=== PATIENT | male | born 1950 | race Caucasian/White ===

== ENCOUNTER 2016-07-09 22:38 | Inpatient (IN) | payer MEDICARE ==
[~2016-07-09] VITALS: Ht 162.6 cm; Wt 91.8 kg
[~2016-07-09 22:38] MED LIST: ACURKIT XX; AMLO10TA2 NG; B-D1MIS3 XX; CARV6.25 PO; CATA0.2D TOP; HYDR25TA PO; HYDR50TA PO; INSUHUMDS SC; INSULADS SC; INSULANT SC; ISOS20TAB PO; PANT40TA2 PO; PRED10TA PO; [UNRECOGNIZED DRUG - SUPPLY] SC
[2016-07-09 23:08] LABS: ABG BASE EXCESS -3.5 (-2.0-2.0); ABG DEVICE NASAL CANN; ABG HCO3 25.4 MEQ/L (22.0-26.0); ABG PARTIAL PRESSURE O2 372.2 mmHg (75.0-100.0); ABG STANDARD HCO3 21.7 MEQ/L (22.0-26.0); ABG TOTAL CO2 27.3 MEQ/L (23.0-31.0)
[2016-07-09 23:10] LABS: ABG PARTIAL PRESSURE CO2 63.4 mmHg (35.0-45.0)
[2016-07-09 23:13] LABS: CALCIUM LEVEL 8.2 MG/DL (8.8-10.2); CREATININE FOR GFR 1.62 MG/DL (0.70-1.30); GLOMERULAR FILTRATION RATE 45.3 (>49)
[2016-07-09 23:14] LABS: BASO % 0.2 % (0.0-1.0); EOS # 0.3 K/mm3 (0.0-0.50); EOS % 1.4 % (0.0-3.0); LARGE UNSTAINED CELL # 0.3 K/mm3 (0.0-0.4); LARGE UNSTAINED CELL % 1.3 % (0.0-4.0); LYMPH # 0.9 K/mm3 (1.5-4.5); LYMPH % 4.3 % (24.0-44.0); MEAN CORPUSCULAR HEMOGLOBIN 29.2 pg (27.0-33.0); MEAN CORPUSCULAR HGB CONC 32.8 g/dl (32.0-36.5); MEAN CORPUSCULAR VOLUME 88.8 fl (80.0-96.0); MONO # 0.8 K/mm3 (0.0-0.8); MONO % 3.7 % (0.0-5.0); NEUTROPHILS # 18.1 K/mm3 (1.8-7.7); NEUTROPHILS % 89.1 % (36.0-66.0); PLATELET COUNT, AUTOMATED 122 k/mm3 (150-450); RED CELL DISTRIBUTION WIDTH 12.5 % (11.5-14.5); WHITE BLOOD COUNT 20.3 K/mm3 (4.0-10.0)
[2016-07-09] MEDS ORDERED: NITROGLYCERIN 2% OINT 1 GM *U/D* PKT As Ordered ONE (23:29)
[2016-07-10] VITALS (9 sets, daily range): BP systolic 119–151; BP diastolic 58–70; O2SAT 92–98
[2016-07-10] MEDS ORDERED: FUROSEMIDE 40 MG/4 ML VIAL (J1940) As Ordered ONE (00:24)
[2016-07-10] MEDS ORDERED: CEFUROXIME INJ 750 MG VIAL (J0697) As Ordered ONE (00:24)
[2016-07-10 00:49] LABS: ABG BASE EXCESS 0.1 (-2.0-2.0); ABG HCO3 24.7 MEQ/L (22.0-26.0); ABG PARTIAL PRESSURE CO2 39.9 mmHg (35.0-45.0); ABG PARTIAL PRESSURE O2 102.9 mmHg (75.0-100.0); ABG STANDARD HCO3 24.6 MEQ/L (22.0-26.0); ABG TOTAL CO2 25.9 MEQ/L (23.0-31.0)
[2016-07-10] MEDS ORDERED: HYDR-4266 PO (01:02)
[2016-07-10] MEDS ORDERED: CATA0.2D TD (01:02)
[2016-07-10] MEDS ORDERED: CARV6.25 PO (01:02)
[2016-07-10] MEDS ORDERED: INSULANT SC (01:02)
[2016-07-10] MEDS ORDERED: ISOS20TAB PO (01:02)
[2016-07-10] MEDS ORDERED: INSUHUMDS SC (01:02)
[2016-07-10] MEDS ORDERED: AMLO10TA2 PO (01:02)
[2016-07-10] MEDS ORDERED: PRED10TA PO (01:02)
[2016-07-10] MEDS ORDERED: PANT40TA2 PO (01:02)
[2016-07-10] MEDS ORDERED: GLUCOSE 4 GM CHEW TABLET PO PRN (01:30)
[2016-07-10] MEDS ORDERED: GLUCAGON FOR INJ 1 MG VIAL (J1610) SC PRN (01:30)
[2016-07-10] MEDS ORDERED: DEXTROSE 50% 50 ML SYRINGE IV PRN (01:30)
--- NOTE | 2016-07-10 01:52 | HPEPDOC ---
General Date of Admission 07/10/2016 Chief Complaint The patient is a 66-year-old male admitted with a reason for visit of Diff Breathing. History of Present Illness 66-year-old male past history of diabetes, hypertension, COPD who presents with increasing shortness of breath for 1 day duration. Patient was discharged on 6: 30 PM and returns to the ED AROUND 9:30 due to shortness of breath. When I asked the patient is a little better for about couple hours but then suddenly got worse and therefore he decided to come back to ED. patient is on placed on BiPAP and breathing comfortably and saturating well. Patient was admitted on 06/20/2016 with acute hypercapnic and hypoxic was a failure requiring intubation. Patient stayed in hospital for about 3 weeks, requiring nitroglycerin drip for hypertensive urgency. Patient also had completed a course with worsening kidney function and on discharge creatinine was 1.57. On admission his creatinine was 1.3 which trended up to 6 and was stable around 1.5 upon discharge. Patient also has elevated BnP as well as pitting edema. Lasix was held due to worsening kidney function. ABG revealed PCO2 of 63 which improved to 40 upon BiPAP. At this time patient is being admitted to ICU for BiPAP therapy. Home Medications Scheduled Amlodipine Besylate (Amlodipine Besylate) 10 Mg Tab 10 MG PO DAILY (Reported) Carvedilol (Carvedilol) 6.25 Mg Tab 6.25 MG PO BID (Reported) Clonidine Hydrochloride ([id number]-Ylj-9) 0.2 Mg/24 Hr Dis 0.2 MG TD 1XWK ( Reported) SUNDAYS Hydralazine HCl (Hydralazine HCl) 25 Mg Tab 25 MG PO TID (Reported) Insulin Glargine (Lantus) 1 Units/0.01 Ml Susp 20 UNITS SC QHS (Reported) Insulin Human Lispro (Humalog) 1 Units/0.01 Ml Inj 1 DOSE SC AC (Reported) Isosorbide Dinitrate (Isosorbide Dinitrate) 20 Mg Tab 20 MG PO TID (Reported) Pantoprazole Sodium (Pantoprazole Sodium) 40 Mg Tab 40 MG PO DAILY (Reported) Prednisone (Prednisone) 10 Mg Tab 10 MG PO QHS (Reported) Allergies Coded Allergies: No Known Allergies (Unverified , 06/20/16) Past Medical History Medical History COPD Chronic kidney disease Hypertension Diabetes GERD Family History Significant Family History: No pertinent family hx Social History * Smoker: former Smoker Alcohol: denies Drugs: denies Recent Travel/Sick Contacts: Denies: Recent sick contacts, Recent travel Psychosocial History: No pertinent psych hx Review of Symptoms General: Denies: Chills, Fatigue, Malaise, Night Sweats, Normal Appetite, Other Symptoms, ROS Unobtainable Constitutional: Denies: Chills, Fatigue, Fever, Lethargy, Malaise, Night Sweats , Other, Weakness, Weight Loss Eyes: Denies: Conjunctivae inflammation, Eyelid inflammation, Other, Pain, Redness, Vision change ENT: Denies: Dysphagia, Ear Pain, Epistaxis, Head Aches, Other Symptoms, Post Nasal Drip, Sinus Congestion, Sore Throat Skin: Denies: Breakdown, Bruising, Dry, Itching, Jaundice, Lesions, Nail Changes, Other, Rash Pulmonary: Reports: Cough, Dyspnea Cardiovascular: Denies: Chest Pain, Edema, Lt Headedness, Orthopnea, Other Symptoms, Palpitations, Paroxysmal Noc. Dyspnea Gastrointestinal: Denies: Abdominal Pain, Constipation, Diarrhea, Hematochezia , Melena, Nausea, Other Symptoms, Vomiting Genitourinary: Denies: Dysuria, Frequency, Hematuria, Incontinence, Other Symptoms, Retention Hematologic: Denies: Bleeding Excessively, Bruising, Enlarged Lymph Nodes, Other Hematologic, Petecchia, Purpura Endocrine: Denies: Cold Intolerance, Heat Intolerance, Other Endocrine Sx, Polydipsia, Polyphagia, Polyuria Musculoskeletal: Denies: Arm Pain, Back Pain, Foot Pain, Hand Pain, Joint Pain , Leg Pain, Muscle Pain, Neck Pain, Other Symptoms, Shoulder Pain, Spasms Neurological: Denies: Change in speech, Confusion, Incoordination, Numbness, Other Symptoms, Seizures, Weakness Psych: Denies: Anger, Anxiety, Depression, Memory Issues, Mood Normal, Other Psych, Thoughts of Harming Other, Thoughts of Self Harm Physical Examination Eye Exam: Negative: Conjunctiva & lids normal, EOMI, Other Eye Symptoms, PERRLA , Ptosis, Sclera icteric ENT Exam: Negative: Atraumatic, Ext Auditory Canal Nml, Mucous membr. moist/ pink, Nares Patent, Other ENT, Pharyngeal Edema, Pharynx Normal, Pinna Normal, Tongue Midline, Tympanic Membranes Normal Neck Exam: Negative: +2 carotid pulse wo bruit, JVD, Lymphadenopathy, Other, Supple, thyromegaly Chest Exam: Positive: Rales, Wheezing Heart Exam: Negative: Bradycardic, Gallops, Irregular Rhythm, Murmurs, Normal S1, Normal S2, Other, Rate Normal, Regular Rhythm, Rubs, Tachycardic Telemetry: Negative: AV Block, Asystole, Atrial fibrillation, Bradycardia, No significant arrhythmia, Other Telemetry:, PACs, PVCs, Pause, SV Tach, Sinus, Tachycardia Abdomen Exam: Negative: BS Hyperactive, BS Hypoactive, Hepatospenomegaly, Hernia, Mass, Normal bowel sounds, Other, Soft, Tenderness Vital Signs Blood pressure 220/104 Pulse 110 Respiration 32 Laboratory Data Labs 24H Laboratory Tests 2 07/09/16 22:46: Anion Gap 11, B-Type Natriuretic Peptide 1580H, White Blood Count 20.3H, Red Blood Count 4.37, Hemoglobin 12.7L, Hematocrit 38.8L, Mean Corpuscular Volume 88.8, Mean Corpuscular Hemoglobin 29.2, Mean Corpuscular Hemoglobin Concent 32.8 , Red Cell Distribution Width 12.5, Platelet Count 122L, Neutrophils (%) (Auto) 89.1H, Lymphocytes (%) (Auto) 4.3L, Monocytes (%) (Auto) 3.7, Eosinophils (%) ( Auto) 1.4, Basophils (%) (Auto) 0.2, Neutrophils # (Auto) 18.1H, Lymphocytes # ( Auto) 0.9L, Monocytes # (Auto) 0.8, Eosinophils # (Auto) 0.3, Basophils # (Auto ) 0.0, Blood Urea Nitrogen 30H, Creatinine 1.62H, Sodium Level 140, Potassium Level 4.0, Chloride Level 102, Carbon Dioxide Level 27, Calcium Level 8.2L, Total Creatine Kinase 112, Creatine Kinase MB 12.4H, Creatine Kinase MB Relative Index 11.07H, Glomerular Filtration Rate 45.3L, Large Unclassified Cells # 0.3, Large Unclassified Cells % 1.3, Troponin I 0.16H 07/09/16 23:04: Arterial Blood pH 7.220*L, Arterial Blood Partial Pressure CO2 63.4*H, Arterial Blood Partial Pressure O2 372.2H, Arterial Blood Total CO2 27.3, Arterial Blood HCO3 25.4, Arterial Blood Base Excess -3.5L, Arterial Blood Oxygen Saturation 99.9H, Blood Gas Bicarbonate Standard 21.7L, Oxygen Delivery Device NASAL LOVE 07/10/16 00:36: Arterial Blood pH 7.410, Arterial Blood Partial Pressure CO2 39.9, Arterial Blood Partial Pressure O2 102.9H, Arterial Blood Total CO2 25.9, Arterial Blood HCO3 24.7, Arterial Blood Base Excess 0.1, Arterial Blood Oxygen Saturation 98.2 , Blood Gas Bicarbonate Standard 24.6 CBC/BMP Laboratory Tests 07/09/16 22:46 Calcium Level 8.2 L, Total Creatine Kinase 112, Red Blood Count 4.37, Mean Corpuscular Volume 88.8, Mean Corpuscular Hemoglobin 29.2, Mean Corpuscular Hemoglobin Concent 32.8, Red Cell Distribution Width 12.5, Neutrophils (%) (Auto ) 89.1 H, Lymphocytes (%) (Auto) 4.3 L, Monocytes (%) (Auto) 3.7, Eosinophils (% ) (Auto) 1.4, Basophils (%) (Auto) 0.2, Neutrophils # (Auto) 18.1 H, Lymphocytes # (Auto) 0.9 L, Monocytes # (Auto) 0.8, Eosinophils # (Auto) 0.3, Basophils # (Auto) 0.0 Microbiology Microbiology 07/09/16 Blood Culture, Received Pending 07/09/16 Blood Culture, Received Pending Plan / VTE VTE Prophylaxis Ordered?: Yes Plan Plan 66-year-old male past history of diabetes, hypertension, COPD who presents with increasing shortness of breath for 1 day duration. COPD exacerbation Patient will be placed on BiPAP for now. DuoNeb every 4 Continue with prednisone 10 mg once a day Spiriva and advair acute on chronic diastolic Congestive heart failure/acute kidney injury on chronic kidney disease/fluid overload Echo from beginning of june showed normal EF with a grade 1 diastolic heart failure. Fluid overload could be secondary to acute kidney injury on CKd. We will obtain an echo tomorrow, Lasix 40 IV twice a day Daily ins and outs and daily weights. Hypertensive urgency Continue with Catapres. Will increase hydralazine 200 mg 3 times a day Also had a carotid Lasix IV. We'll monitor blood pressure DM levemir and Insulin sliding scale. Prophylaxis heparin subcutaneous MÓNICA VERDUZCO MD Jul 10, 2016 01:52
--- NOTE | 2016-07-10 02:24 | EDDOCDS ---
Physician Documentation [facility] Name: Maurilio Mcmullen Age: 66 yrs Sex: Male : 1950 Arrival Date: 07/09/2016 Time: 22:38 Bed 4 Private MD: Butch Elder A. Disposition: 07/10 00:39 Critical Care:. cs11 Disposition: 07/10/16 00:39 Hospitalization ordered by Mickey Urbina for Inpatient Admission. Preliminary diagnosis are Respiratory failure, unspecified with hypercapnia, Hypertensive heart disease with heart failure, Pneumonia in diseases classified elsewhere. - Bed requested for M ICU. - Status is Inpatient Admission. cz - Condition is Stable. - Problem is new. - Symptoms have improved. Historical: - Allergies: no known allergies; - Home Meds: 1. Unknown 2. amlodipine 10 mg Oral tab 1 tab once daily 3. carvedilol 6.25 mg oral tab 1 tab 2 times per day 4. clonidine HCl 0.2 mg oral tab 1 patch 5. hydralazine 75 mg Oral tab 3 times per day 6. isosorbide dinitrate 20 mg Oral tab 1 tab 3 times per day 7. pantoprazole 40 mg oral grps 1 packet once daily 8. prednisone 10 mg Oral tab once daily - PMHx: respiratory distress; Hypertension; intubation; Renal Failure w/o Dialysis; Diabetes - NIDDM: uncontrolled; GERD; COPD; - PSHx: none; - Social history: Smoking status: Patient states former smoker of tobacco. No barriers to communication noted. - Family history: Not pertinent. - : The pt / caregiver states he / she is not on anticoagulants. Home medication list is obtained from [employer] import data. - Exposure Risk Screening:: None identified. Vital Signs: 07/09 22:44 BP 220 / 104; Pulse 110; Resp 32; Pulse Ox 58% on R/A; Weight 89.81 kg / 198 lbs; [facility] Height 5 ft. 4 in. (162.56 cm); Pain 0/10; 22:48 BP 218 / 104 (auto/); af2 22:49 Pulse 110 MON; Resp 30 S; Pulse Ox 99% on Non-rebreather mask; af2 22:55 BP 213 / 102 (auto/); mlc 22:56 Pulse 110 MON; Resp 30 S; Pulse Ox 98% on 40% BiPAP; mlc 23:10 BP 212 / 104 (auto/); mlc 23:11 Pulse 108 MON; Pulse Ox 99% on 40% BiPAP; mlc 23:25 BP 224 / 102 (auto/); mlc 23:26 Pulse 106 MON; Resp 30 S; Pulse Ox 99% on 40% BiPAP; mlc 23:40 BP 198 / 68 (auto/); mlc 23:41 Pulse 98 MON; Resp 30 S; Pulse Ox 97% on 40% BiPAP; mlc 07/10 00:41 BP 155 / 69 (auto/); af2 00:41 Pulse 80 MON; Resp 26 S; Pulse Ox 98% on 40% BiPAP; af2 00:57 Temp 97.8(TE); ajs 01:24 BP 157 / 77 (auto/); af2 01:25 Pulse 78 MON; Resp 28 S; Pulse Ox 97% on 40% BiPAP; af2 01:26 BP 154 / 78 (auto/); af2 01:27 Pulse 76 MON; Resp 26 S; Pulse Ox 97% on BiPAP; af2 01:40 Pulse 76 MON; Pulse Ox 93% ; af2 01:41 BP 155 / 76 (auto/); af2 02:11 BP 154 / 74 (auto/); af2 02:12 Pulse 76 MON; Pulse Ox 98% on 40% BiPAP; af2 07/09 22:44 Body Mass Index 33.99 (89.81 kg, 162.56 cm) [facility] MDM: 07/09 22:53 -Blood Culture (Adults Only), peripheral from different site, or from device/port/PICC [facility] etc. if present ordered. 22:53 [employer] Sales Representative/Pulse Ox/q 15 min VS ordered. [facility] 22:53 IV Saline Lock ordered. [facility] 22:53 Oxygen at 4L/Min NC or Home dosage ordered. [facility] 22:53 Rhythm Strip to chart ordered. [facility] 22:53 Call Respiratory ordered. [facility] 22:54 Call Respiratory complete. cj 22:54 -Blood Culture Ordered. EDMS 22:54 Basic Metabolic Profile Ordered. EDMS 22:54 CBC with Diff Ordered. EDMS 22:54 ECG WITH READING ER PHYS+CARDIAG ordered. EDMS 22:55 -Arterial Blood Gas Ordered. EDMS 22:57 -Blood Culture (Adults Only), peripheral from different site, or from device/port/PICC kb5 etc. if present complete. 22:59 BLOOD CULTURES Ordered. EDMS 23:19 Basic Metabolic Profile Reviewed. cs11 23:19 CBC with Diff Reviewed. cs11 23:19 -Arterial Blood Gas Reviewed. cs11 23:20 Nitro-Bid Ointment 2 % 1 inches Transdermal once ordered. cs11 23:20 Call Respiratory ordered. cs11 23:21 BNP Ordered. EDMS 23:22 Call Respiratory complete. af2 23:24 CARDIAC MARKER PANEL Ordered. EDMS 23:47 Basic Metabolic Profile Reviewed. cs11 23:47 CARDIAC MARKER PANEL Reviewed. cs11 23:49 Chest, 1 View Ordered. EDMS 07/10 00:16 BNP Reviewed. cs11 00:17 Furosemide 60 mg IVP once ordered. cs11 00:17 cefUROXime 1.5 grams IV at calculated rate once over 30 mins; dilute in 50mL of NS or cs11 D5W ordered. 00:31 Admission / Observation Status ordered. EDMS 00:31 ECHOCARD,DOPPLER/COLOR FLOW ordered. EDMS 00:31 NPO DIET ordered. EDMS 00:32 ARTERIAL BLOOD GAS Ordered. EDMS 00:36 BED REQUEST+ADM ordered. EDMS 00:50 [facility] Payment Agreement was scanned into [employer] and attached to record. lja 00:50 Financial registration complete. lja 01:31 TROPONIN Ordered. EDMS 01:52 BIPAP INPATIENT ordered. EDMS 02:05 MRSA SCREEN Ordered. EDMS Administered Medications: 07/09 23:33 Drug: Nitro-Bid 1 inches [Nitro-Bid 2 % transdermal ointment (1 inches)] Route: af2 Transdermal; Site: left upper arm; 07/10 00:41 Drug: Furosemide 60 mg [furosemide 10 mg/mL injection solution (6 mL)] Route: IVP; af2 Site: right antecubital; 00:55 Drug: cefUROXime 1.5 grams [cefuroxime sodium 750 mg solution for injection] Route: IV; af2 Rate: calculated rate; Infused Over: 30 mins; Site: right antecubital; Critical Care Time: 00:39 Critical care time: Bedside Care: 60 minutes. Total time: 60 minutes cs11 Signatures: Dispatcher [employer] EDMS Tripp Oneal RN RN Miguel Garcias, AUDIOVISUAL TECH AUDIOVISUAL TECH kb5 Kaycee Stevens,RN RN cjh Linus Robles, DO cs11 Steffany Cha,RN RN af2 Arealma, Liliana poole The chart was reviewed and I authenticate all verbal orders and agree with the evaluation and treatment provided.Corrections: (The following items were deleted from the chart) 07/09 23:24 23:21 CARDIAC MARKER PANEL+LAB ordered. EDMS EDMS Attachments: 07/10 00:50 [facility] [place] [email or web address]
--- NOTE | 2016-07-10 02:24 | EDDOCDS ---
Nurse's Notes [facility] Name: Maurilio Mcmullen Age: 66 yrs Sex: Male : 1950 Arrival Date: 07/09/2016 Time: 22:38 Bed 4 Private MD: Butch Elder A. Diagnosis: Respiratory failure, unspecified with hypercapnia;Hypertensive heart disease with heart failure;Pneumonia in diseases classified elsewhere Presentation: 07/09 22:40 Presenting complaint: Patient states: sister states just released from hospital today [facility] for breathing problems, and he started having trouble breathing about an hour ago. Presented passenger in car unable to get out due to weakness, difficulty speaking due SOB. Adult Sepsis Screening: The patient does not have new or worsening altered mentation. Patient has a respiratory rate of greater than or equal to 22 (1 point). Systolic blood pressure is less than or equal to 100 (1 point). Patient has a qSOFA score of 1- Negative Sepsis Screen. Suicide/Homicide risk assessment- Unable to assess, the patient is critically ill. 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 Transition of care: patient was not received from another setting of care. 22:40 Acuity: DIDI Level 2 [facility] 22:40 Method Of Arrival: Walkin/Carried/Asstd [facility] Triage Assessment: 22:44 General: Appears distressed. Pain: Denies pain. Respiratory: Onset: The [facility] symptoms/episode began/occurred just prior to arrival, Airway is patent Respiratory effort is labored, pursed lip, Respiratory pattern is tachypnea. Derm: Skin is pale. Historical: - Allergies: no known allergies; - Home Meds: 1. Unknown 2. amlodipine 10 mg Oral tab 1 tab once daily 3. carvedilol 6.25 mg oral tab 1 tab 2 times per day 4. clonidine HCl 0.2 mg oral tab 1 patch 5. hydralazine 75 mg Oral tab 3 times per day 6. isosorbide dinitrate 20 mg Oral tab 1 tab 3 times per day 7. pantoprazole 40 mg oral grps 1 packet once daily 8. prednisone 10 mg Oral tab once daily - PMHx: respiratory distress; Hypertension; intubation; Renal Failure w/o Dialysis; Diabetes - NIDDM: uncontrolled; GERD; COPD; - PSHx: none; - Social history: Smoking status: Patient states former smoker of tobacco. No barriers to communication noted. - Family history: Not pertinent. - : The pt / caregiver states he / she is not on anticoagulants. Home medication list is obtained from [employer] import data. - Exposure Risk Screening:: None identified. Screenin:52 Screening information is obtained from the patient. Fall risk: At risk due to age, The af2 following interventions are performed due to a positive Fall Risk Screen: Fall Risk is added to Special Handling on the patient Summary Screen. A Fall Risk Bracelet was applied to the patient. Side Rails are placed in the up position. A Call Painter is given with instruction to call for help when getting out of bed. Fall Alert bracelet is placed on the patient. Assistance ADL's: requires no assistance with activities of daily living. Abuse/DV Screen: The patient / caregiver reports he/she is: not in a situation that causes fear, pain or injury. Nutritional screening: On diabetic diet. Advance Directives: Currently, there is no health care proxy. home support is adequate. Assessment: 22:53 General: Appears distressed, Behavior is anxious. Pain: Denies pain. Neurological: af2 Level of Consciousness is awake, alert, obeys commands, Oriented to person, place, time. Cardiovascular: Rhythm is sinus tachycardia Chest pain is denied. Respiratory: Airway is patent Respiratory effort is labored, shallow, Respiratory pattern is tachypnea Breath sounds are coarse in left lower lobe and right lower lobe Breath sounds are diminished bilaterally. Derm: Skin is pale. 22:57 Cardiovascular: Edema is 2+ to left midcalf, left ankle, left foot, right midcalf, af2 right ankle and right foot pitting to left midcalf, left ankle, left foot, right midcalf, right ankle and right foot Pulses are palpable in right dorsalis pedis artery and left dorsalis pedis artery. 23:34 General: pt placed on Bi-Pap at this time, RT at bedside.. af2 07/10 00:42 General: Appears in no apparent distress, Behavior is cooperative. Neurological: Level af2 of Consciousness is awake, alert, obeys commands, Oriented to person, place, time. Cardiovascular: Rhythm is sinus rhythm. Respiratory: Airway is patent Respiratory effort is labored, Respiratory pattern is tachypnea Breath sounds with crackles bilaterally. Breath sounds are diminished bilaterally. Derm: Skin is normal. 01:03 General: ICU to call when ready for pt report.. af2 02:00 General: Appears in no apparent distress, Behavior is cooperative. Neurological: Level af2 of Consciousness is awake, alert, obeys commands, Oriented to person, place, time. Respiratory: Airway is patent Respiratory effort is unlabored. Derm: Skin is normal. Vital Signs: 07/09 22:44 BP 220 / 104; Pulse 110; Resp 32; Pulse Ox 58% on R/A; Weight 89.81 kg; Height 5 ft. 4 cjh in. (162.56 cm); Pain 0/10; 22:48 BP 218 / 104 (auto/); af2 22:49 Pulse 110 MON; Resp 30 S; Pulse Ox 99% on Non-rebreather mask; af2 22:55 BP 213 / 102 (auto/); mlc 22:56 Pulse 110 MON; Resp 30 S; Pulse Ox 98% on 40% BiPAP; mlc 23:10 BP 212 / 104 (auto/); mlc 23:11 Pulse 108 MON; Pulse Ox 99% on 40% BiPAP; mlc 23:25 BP 224 / 102 (auto/); mlc 23:26 Pulse 106 MON; Resp 30 S; Pulse Ox 99% on 40% BiPAP; mlc 23:40 BP 198 / 68 (auto/); mlc 23:41 Pulse 98 MON; Resp 30 S; Pulse Ox 97% on 40% BiPAP; mlc 07/10 00:41 BP 155 / 69 (auto/); af2 00:41 Pulse 80 MON; Resp 26 S; Pulse Ox 98% on 40% BiPAP; af2 00:57 Temp 97.8(TE); ajs 01:24 BP 157 / 77 (auto/); af2 01:25 Pulse 78 MON; Resp 28 S; Pulse Ox 97% on 40% BiPAP; af2 01:26 BP 154 / 78 (auto/); af2 01:27 Pulse 76 MON; Resp 26 S; Pulse Ox 97% on BiPAP; af2 01:40 Pulse 76 MON; Pulse Ox 93% ; af2 01:41 BP 155 / 76 (auto/); af2 02:11 BP 154 / 74 (auto/); af2 02:12 Pulse 76 MON; Pulse Ox 98% on 40% BiPAP; af2 07/09 22:44 Body Mass Index 33.99 (89.81 kg, 162.56 cm) [facility] Vitals: 02:17 Log In Time: July 09, 2016 at 22:44. af2 ED Course: 07/09 22:39 Patient visited by Justina Valencia PCA. rs6 22:39 Butch Elder is Private Physician. rs6 22:39 Patient moved to Waiting rs6 22:40 Steffany Cha RN is Primary Nurse. cz 22:40 Patient moved to 4 cz 22:43 Triage Initiated [facility] 22:52 The patient / caregiver is instructed regarding the plan of care and ED course. Patient af2 has correct armband on for positive identification. Placed in gown. heel cutter on. Pulse ox on. NIBP on. 22:55 O2 via non-rebreather \T\ 15L/min. af2 22:55 Response to O2 therapy: symptoms improved. af2 22:55 Inserted saline lock: 18 gauge in right antecubital area and blood collected. The af2 patient tolerated the procedure well. 22:58 Patient visited by Steffany Cha RN. af2 22:58 Basic Metabolic Profile Sent. af2 22:58 CBC with Diff Sent. af2 22:58 -Blood Culture Sent. af2 23:02 Linus Robles DO is Attending Physician. cs11 23:02 Patient visited by Linus Robles DO. cs11 23:05 -Arterial Blood Gas Sent. cs15 23:07 EKG done. (by ED staff). Reviewed by Linus Robles DO. rn1 23:08 Patient visited by Steffany Cha RN. af2 23:12 Notified attending ED physician of Critical lab value. pH 7.220 CO2 63.4. cz 23:21 BNP Sent. af2 23:34 Patient visited by Steffany Cha RN. af2 23:49 BLOOD CULTURES Sent. ajs 23:50 BIPAP: Inspiratory Pressure: 14, Expiratory Pressure: 6, FiO2: 40%, Full face fask. af2 23:51 Patient visited by Steffany Cha RN. af2 07/10 00:03 Patient visited by Bhakti Limon RN. mlc 00:37 Mickey Urbina MD is Hospitalizing Provider. cs11 00:44 Patient visited by Steffany Cha RN. af2 00:46 ARTERIAL BLOOD GAS Sent. jc3 00:50 [facility] Payment Agreement was scanned into [employer] and attached to record. lja 00:57 Patient visited by Luly Velasquez. ajs 01:03 Patient visited by Steffany Cha,RN. af2 01:45 Patient visited by Steffany Cha,RN. af2 02:16 No procedures done that require assistance. af2 Administered Medications: 07/09 23:33 Drug: Nitro-Bid 1 inches [Nitro-Bid 2 % transdermal ointment (1 inches)] Route: af2 Transdermal; Site: left upper arm; 07/10 00:41 Drug: Furosemide 60 mg [furosemide 10 mg/mL injection solution (6 mL)] Route: IVP; af2 Site: right antecubital; 00:55 Drug: cefUROXime 1.5 grams [cefuroxime sodium 750 mg solution for injection] Route: IV; af2 Rate: calculated rate; Infused Over: 30 mins; Site: right antecubital; RT: 07/09 23:05 ABG's drawn from right radial artery allens test done and positive pressure held for 5 cs15 minutes no bleeding noted pressure bandage applied specimen sent pt. tolerated well. O2 via non-rebreather \T\ 15L/min. 23:45 BIPAP: Inspiratory Pressure: 14, Expiratory Pressure: 6, Backup Rate: 10, FiO2: 40%, cs15 Full face fask. 07/10 00:46 ABG's drawn from right radial artery pressure held for 5 minutes no bleeding noted jc3 pressure bandage applied specimen sent pt. tolerated well. 02:16 Respiratory Transport: Transported From ED Transported to ICU. jc3 Order Results: Lab Order: Basic Metabolic Profile; SPEC'M 07/09/16 22:46 Test: GLUCOSE, FASTING; Value: 236; Range: 80-110; Abnormal: Above high normal; Units: MG/DL; Status: F Test: BLOOD UREA NITROGEN; Value: 30; Range: 7-18; Abnormal: Above high normal; Units: MG/DL; Status: F Test: CREATININE FOR GFR; Value: 1.62; Range: 0.70-1.30; Abnormal: Above high normal; Units: MG/DL; Status: F Test: GLOMERULAR FILTRATION RATE; Value: 45.3; Range: >49; Abnormal: Below low normal; Status: F Test: SODIUM LEVEL; Value: 140; Range: 136-145; Units: MEQ/L; Status: F Test: POTASSIUM SERUM; Value: 4.0; Range: 3.5-5.1; Units: MEQ/L; Status: F Test: CHLORIDE LEVEL; Value: 102; Range: 98-107; Units: MEQ/L; Status: F Test: CARBON DIOXIDE LEVEL; Value: 27; Range: 21-32; Units: MEQ/L; Status: F Test: ANION GAP; Value: 11; Range: 8-16; Units: MEQ/L; Status: F Test: CALCIUM LEVEL; Value: 8.2; Range: 8.8-10.2; Abnormal: Below low normal; Units: MG/DL; Status: F Test Note: ; Units are mL/min/1.73 m2 Chronic Kidney Disease Staging per NKF: Stage I & II GFR >=60 Normal to Mildly Decreased Stage III GFR 30-59 Moderately Decreased Stage IV GFR 15-29 Severely Decreased Stage V GFR <15 Very Little GFR Left ESRD GFR <15 on NOZZLE OPERATOR Lab Order: CBC with Diff; SPEC'M 07/09/16 22:46 Test: WHITE BLOOD COUNT; Value: 20.3; Range: 4.0-10.0; Abnormal: Above high normal; Units: K/mm3; Status: F Test: RED BLOOD COUNT; Value: 4.37; Range: 4.30-6.10; Units: M/mm3; Status: F Test: HEMOGLOBIN; Value: 12.7; Range: 14.0-18.0; Abnormal: Below low normal; Units: g/dl; Status: F Test: HEMATOCRIT; Value: 38.8; Range: 42.0-52.0; Abnormal: Below low normal; Units: %; Status: F Test: MEAN CORPUSCULAR VOLUME; Value: 88.8; Range: 80.0-96.0; Units: fl; Status: F Test: MEAN CORPUSCULAR HEMOGLOBIN; Value: 29.2; Range: 27.0-33.0; Units: pg; Status: F Test: MEAN CORPUSCULAR HGB CONC; Value: 32.8; Range: 32.0-36.5; Units: g/dl; Status: F Test: RED CELL DISTRIBUTION WIDTH; Value: 12.5; Range: 11.5-14.5; Units: %; Status: F Test: PLATELET COUNT, AUTOMATED; Value: 122; Range: 150-450; Abnormal: Below low normal; Units: k/mm3; Status: F Test: NEUTROPHILS %; Value: 89.1; Range: 36.0-66.0; Abnormal: Above high normal; Units: %; Status: F Test: LYMPH %; Value: 4.3; Range: 24.0-44.0; Abnormal: Below low normal; Units: %; Status: F Test: MONO %; Value: 3.7; Range: 0.0-5.0; Units: %; Status: F Test: EOS %; Value: 1.4; Range: 0.0-3.0; Units: %; Status: F Test: BASO %; Value: 0.2; Range: 0.0-1.0; Units: %; Status: F Test: LARGE UNSTAINED CELL %; Value: 1.3; Range: 0.0-4.0; Units: %; Status: F Test: NEUTROPHILS #; Value: 18.1; Range: 1.8-7.7; Abnormal: Above high normal; Units: K/mm3; Status: F Test: LYMPH #; Value: 0.9; Range: 1.5-4.5; Abnormal: Below low normal; Units: K/mm3; Status: F Test: MONO #; Value: 0.8; Range: 0.0-0.8; Units: K/mm3; Status: F Test: EOS #; Value: 0.3; Range: 0.0-0.50; Units: K/mm3; Status: F Test: BASO #; Value: 0.0; Range: 0.0-0.2; Units: K/mm3; Status: F Test: LARGE UNSTAINED CELL #; Value: 0.3; Range: 0.0-0.4; Units: K/mm3; Status: F Lab Order: -Arterial Blood Gas; SPEC'M 07/09/16 23:04 Test: ABG pH (ARTERIAL); Value: 7.220; Range: 7.350-7.450; Abnormal: Critical Low; Units: UNITS; Status: F Test: ABG PARTIAL PRESSURE CO2; Value: 63.4; Range: 35.0-45.0; Abnormal: Above upper panic limits; Units: mmHg; Status: F Test: ABG PARTIAL PRESSURE O2; Value: 372.2; Range: 75.0-100.0; Abnormal: Above high normal; Units: mmHg; Status: F Test: ABG TOTAL CO2; Value: 27.3; Range: 23.0-31.0; Units: MEQ/L; Status: F Test: ABG HCO3; Value: 25.4; Range: 22.0-26.0; Units: MEQ/L; Status: F Test: ABG BASE EXCESS; Value: -3.5; Range: -2.0-2.0; Abnormal: Below low normal; Status: F Test: ABG STANDARD HCO3; Value: 21.7; Range: 22.0-26.0; Abnormal: Below low normal; Units: MEQ/L; Status: F Test: ABG O2 SATURATION; Value: 99.9; Range: 95.0-99.0; Abnormal: Above high normal; Units: %; Status: F Test: ABG DEVICE; Value: NASAL LOVE; Status: F Lab Order: BNP; [facility] 07/09/16 22:46 Test: BRAIN NATRIURETIC PEPTIDE; Value: 1580; Range: <100; Abnormal: Above high normal; Units: PG/ML; Status: F Lab Order: CARDIAC MARKER PANEL; [facility] 07/09/16 22:46 Test: CPK CREATINE PHOSPHOKINASE; Value: 112; Range: 39-308; Units: U/L; Status: F Test: CK-MB VALUE MASS; Value: 12.4; Range: 0.0-3.6; Abnormal: Above high normal; Units: NG/ML; Status: F Test: MB/CK RELATIVE INDEX; Value: 11.07; Range: < OR =4; Abnormal: Above high normal; Status: F Test: TROPONIN I; Value: 0.16; Range: < 0.10; Abnormal: Above high normal; Units: NG/ML; Status: F Test Note: ; DIAGNOSIS CRITERIA MMB ng/ml Relative Index (RI) NON-AMI < or = 5 N/A [place] > 5 < or = 4 AMI > 5 > 4 Lab Order: ARTERIAL BLOOD GAS; [facility] 07/10/16 00:36 Test: ABG pH (ARTERIAL); Value: 7.410; Range: 7.350-7.450; Units: UNITS; Status: F Test: ABG PARTIAL PRESSURE CO2; Value: 39.9; Range: 35.0-45.0; Units: mmHg; Status: F Test: ABG PARTIAL PRESSURE O2; Value: 102.9; Range: 75.0-100.0; Abnormal: Above high normal; Units: mmHg; Status: F Test: ABG TOTAL CO2; Value: 25.9; Range: 23.0-31.0; Units: MEQ/L; Status: F Test: ABG HCO3; Value: 24.7; Range: 22.0-26.0; Units: MEQ/L; Status: F Test: ABG BASE EXCESS; Value: 0.1; Range: -2.0-2.0; Status: F Test: ABG STANDARD HCO3; Value: 24.6; Range: 22.0-26.0; Units: MEQ/L; Status: F Test: ABG O2 SATURATION; Value: 98.2; Range: 95.0-99.0; Units: %; Status: F Outcome: 00:39 Decision to Hospitalize by Provider. cs11 02:16 Discharge Assessment: Patient awake, alert and oriented x 3. No cognitive and/or af2 functional deficits noted. Patient verbalized understanding of disposition instructions. patient administered narcotics - no. The following High Risk Discharge criteria are identified: None. Admitted to ICU accompanied by nurse, accompanied by tech, via stretcher, with oxygen, on monitor, with chart. Condition: stable. No special radiology studies were completed. Property :Personal belongings accompany Pt. 02:23 Patient left the ED. cz Signatures: Tripp Oneal RN RN Guy Araujo jc3 Luly Velasquez Jane, RN RN Linus Lewis DO DO cs11 Bhakti Limon RN RN mlc Schmitt, Rebecca, [address] THRU ORDER TAKER rs6 Steffany Cha RN RN radha2 Sherman Salas rn1 Arel, Karl Beckwith,RT RT cs15 Corrections: (The following items were deleted from the chart) 07/09 22:47 22:44 BP 220 / 104; Pulse 110bpm; Resp 32bpm; Pulse Ox 58% RA; Height 5 ft. 4 in.; Pain cjh 0/10; [facility] 23:24 23:22 CARDIAC MARKER PANEL+LAB sent. af2 EDMS MTDD
[2016-07-10] MEDS: IPRATROPIUM 0.5MG/ALBUTEROL 2.5MG INH SOL UD 3ML (DUONEB)(J7620) NEB SCH ×6 (04:01→23:35)
[2016-07-10] MEDS: ADVAIR DISKUS 500/50 INH PWD INH SCH ×2 (07:54→19:57)
[2016-07-10] MEDS: TIOTROPIUM INHALER/CAPSULE (SPIRIVA) INH SCH (07:54)
[2016-07-10] MEDS: PANTOPRAZOLE 40MG TAB (PROTONIX) PO SCH (08:08)
[2016-07-10] MEDS: HumaLOG INSULIN (NovoLOG) PER UNIT SC SCH ×4 (08:08→20:04)
[2016-07-10] MEDS: HEPARIN SOD (PORCINE) 5000 UNITS/ML VIAL SQ SCH ×2 (08:09→20:04)
[2016-07-10] MEDS: **hydrALAZINE** 50 MG TAB PO SCH ×3 (08:09→20:03)
[2016-07-10] MEDS: amLODIPine 10 MG TAB PO SCH (08:09)
[2016-07-10] MEDS: ISOSORBIDE DIN. (ISORDIL) 20 MG TAB PO SCH ×3 (08:56→19:57)
[2016-07-10] MEDS: DOXYCYCLINE HYCLATE 100 MG in D5W MINI-BAG PLUS 100 ML IV SCH ×2 (08:56→20:05)
[2016-07-10] MEDS ORDERED: **hydrALAZINE HCL** 25 MG TAB PO SCH (09:00)
[2016-07-10] MEDS ORDERED: CARVedilol 6.25 MG TAB PO SCH (09:00)
[2016-07-10] MEDS ORDERED: FUROSEMIDE 40 MG/4 ML VIAL (J1940) IV SCH (09:00)
--- NOTE | 2016-07-10 09:52 | REP ---
SINGLE VIEW CHEST: Single view of the chest is performed and compared to prior study of 06/30/2016 as well as other prior exams. There is cardiomegaly. There is mild vascular congestion. There is mild to moderate interstitial infiltrate in the right lower lung zone with a small amount of right pleural fluid. There is patchy infiltrate in the left lower lobe with mild to moderate left effusion. IMPRESSION: Cardiomegaly. Vascular congestion. Alveolar infiltrate, left lung base and interstitial infiltrate right lung base. Small right effusion. Mild to moderate left effusion. Signed by Moiz Madrigal MD 07/10/2016 04:50 P
[2016-07-10] MEDS: ASPIRIN 81 MG CHEW TABLET PO SCH (12:21)
[2016-07-10] MEDS: ATORVASTATIN 20 MG TAB PO SCH (12:21)
--- NOTE | 2016-07-10 18:56 | ECGEPIP ---
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
[2016-07-10] MEDS ORDERED: SPIRONOLACTONE 12.5MG PER 1/2 TABLET PO ONE (20:00)
[2016-07-10] MEDS: CARVedilol 12.5 MG TAB PO SCH (20:03)
[2016-07-10] MEDS: predniSONE 10 MG TAB PO SCH (20:03)
[2016-07-10] MEDS: LEVEMIR (INSULIN DETEMIR) 1 UNITS/0.01ML SC SCH (20:05)
--- NOTE | 2016-07-10 21:04 | CR ---
DATE OF CONSULTATION: 07/10/2016 REFERRING PROVIDER: Dr. Aaron Mari REASON FOR THE CONSULT: Heart failure, abnormal serum troponin. HISTORY OF THE PRESENT ILLNESS: A 66-year-old male who was recently admitted here on 06/20/2016 up to 07/09/2016 with acute hypercapnic hypoxemic respiratory failure requiring mechanical ventilation after failing noninvasive/bilevel positive airway pressure (BiPAP) therapy. His blood pressure also was markedly elevated, and he developed renal failure while on IV Lasix and angiotensin-converting enzyme (TIFFANIE) inhibitor. His kidney function has improved as well as his blood pressure, and he was discharged home yesterday but came back a few hours later with increasing shortness of breath, orthopnea, and rapid heart rate. He, however, denies any chest pain at this time as well as on the last hospitalization on 06/20/2016. He has not been having any chest pain even with activities and it seemed that prior to his last hospitalization, he was not taking any medications. He was found to have minimally abnormal serum troponin and cardiology consult was called. When I saw Mr. Maurilio Mcmullen, he was lying supine in bed in no acute distress at rest and appears to be nervous to what is going on. He denies any chest pain or palpitations, and there is no orthopnea or paroxysmal nocturnal dyspnea (PND) . He does feel shortness of breath but mild and he thinks he is feeling better since in the hospital. He has a cough but denies any hemoptysis or fever. He has no nausea or vomiting, diarrhea, melena or hematemesis. He has no focal manifestation. He has a past medical history positive for decompensated congestive heart failure secondary to left ventricular diastolic dysfunction, hypertensive urgency, acute renal failure, diabetes mellitus, gastroesophageal reflux disease (GERD). He denies any hyperlipidemia, prior history of myocardial infarction, significant valvular heart disease, atrial fibrillation, cardiomyopathy, cerebrovascular accident, sudden cardiac . He had an echocardiogram done earlier this month , and it was reported that he has a normal global left ventricular systolic function. MEDICATION PRIOR TO COMING TO THE HOSPITAL: - amlodipine 10 mg by mouth daily - carvedilol 6.25 mg by mouth twice a day - clonidine patch 0.2 mg weekly every Thursday - hydralazine 75 mg by mouth three times a day - isosorbide dinitrate 20 mg by mouth three times a day - pantoprazole 40 mg by mouth daily - prednisone 10 mg by mouth daily CURRENT MEDICATIONS: - clonidine patch 0.2 mg every Thursday - Levemir insulin 20 units subcu daily - prednisone 10 mg by mouth nightly - regular insulin coverage - Lasix 40 mg IV twice a day - amlodipine 10 mg by mouth daily - carvedilol 6.25 mg by mouth twice a day - isosorbide dinitrate 20 mg by mouth three times a day - pantoprazole 40 mg by mouth daily - heparin subcu 5000 units every 12 hours - Advair Diskus 500/50 one puff twice a day - hydralazine 100 mg by mouth three times a day - doxycycline 100 mg IV every 12 hours - aspirin 81 mg by mouth daily - atorvastatin 40 mg by mouth daily - Spiriva HandiHaler one inhalation daily - He is also on glucagon 1 mg subcu for hypoglycemia, glucose tablets 16 grams as needed for hypoglycemia and D50 25 mL IV as needed also for hypoglycemia. -He also had received since in the hospital 1.5 grams of cefuroxime, 80 mg IV Lasix, and he was on Nitrobid. PAST SURGICAL HISTORY: Unremarkable. FAMILY HISTORY: No history of premature coronary artery disease, myocardial infarction, cardiomyopathy, or sudden cardiac . SOCIAL HISTORY: The patient is a former smoker, and he denies any ethyl alcohol (ETOH) abuse. He has a sister living in the area and very supportive. ALLERGIES: No known drug allergies. ADVANCED DIRECTIVES: The patient is a FULL CODE. PHYSICAL EXAMINATION: The patient is alert and oriented with mild shortness of breath at rest, and his last vital signs revealed a blood pressure of 151/70 at about 4:00 p.m. and prior to that, it was 119/58. Pulse is 94, respirations 20 and his temperature is 98.9 degrees Fahrenheit with an oxygen saturation of 94% on 2 liters nasal cannula. Examination of the head, ears, eyes, nose and throat: Atraumatic. Neck is supple, extended jugular. The lungs revealed bilateral crackles at the bases that seems to be dry crackles. The heart examination revealed normal S1 and S2 without gallops. The point of maximum impulse (PMI) is displaced inferiorly and laterally. There is no rub. I could not appreciate any murmurs. Abdomen is soft, obese and nontender. Bowel sounds are active. Extremities revealed +1 bilateral pitting lower leg and ankle edema. Neurologic examination is negative for focal deficit. LABORATORY: CBC done today revealed a WBC of 20,000, hemoglobin is 12.7,hematocrit 38.8 and platelets 122,000. BMP done today revealed a sodium of 140, potassium 4.0, chloride 102, CO2 27, BUN 30, creatinine 1.62, GFR 45.3, fasting glucose 236, calcium 8.2. Serum troponin was 0.16, 0.75 and 0.99, respectively #1 up to #3. BNP was 1580. ABG on admission revealed a pH of 7.22, pCO2 63.4, pO2 372 with an oxygen saturation of 99.9% Repeat ABG about 1-2 hours later revealed a pH of 7.4, pCO2 39 and pO2 102.9 with an oxygen saturation of 98.2%. Chest x-ray revealed cardiomegaly and increased vascular markings and small right pleural effusion, probably moderate left pleural effusion. Electrocardiogram on admission, 07/09/2016, at 23:09:07 revealed sinus tachycardia at 108 beats per minute, left axis deviation, left anterior hemiblock/IVCD and probably left ventricular hypertrophy with poor R wave progression and nonspecific ST-T abnormalities. No significant changes from prior electrocardiograms on the last hospitalization. IMPRESSION: 1. Status post decompensated congestive heart failure, acute on chronic. 2. Status post respiratory failure. 3. Accelerated hypertension. 4. Diabetes mellitus. 5. Chronic kidney disease. 6. History of chronic obstructive pulmonary disease. 7. Gastroesophageal reflux disease. 8. Abnormal serum troponin. Mr. Maurilio Mcmullen seems to be stable, and his symptoms have improved. The etiology of his acute decompensated congestive heart failure with accelerated hypertension is not quite clear. It seems that he was checked for renal artery stenosis on the last hospitalization and it was negative. He is not quite compliant with diet, but he takes medication regularly. His minimally elevated serum troponin is probably related to his underlying heart failure. He had an echocardiogram done today, it will be reviewed, then further recommendations will be given. I have discussed with him about cardiac catheterization if needed, but he is not at this present time willing to proceed. I have reviewed his medications. He will continue the same, and we will hold the Lasix/furosemide pending his BMP in the morning on 07/11/2016. In the meantime, he will be started on spironolactone and will monitor closely his BUN, creatinine and serum potassium. It was a pleasure to participate in the care of Mr. Maurilio Mcmullen for his underlying cardiac condition. I will continue to monitor him along with you while in the hospital. The case was discussed earlier today with his hospitalist. Edited 07/10/2016 flavia JIANG
[2016-07-11] VITALS: BP 125/62
[2016-07-11 04:00] VITALS: BP 129/58
[2016-07-11] MEDS: IPRATROPIUM 0.5MG/ALBUTEROL 2.5MG INH SOL UD 3ML (DUONEB)(J7620) NEB SCH ×6 (04:04→23:51)
[2016-07-11 04:40] LABS: BASO % 0.5 % (0.0-1.0); EOS # 0.1 K/mm3 (0.0-0.50); LARGE UNSTAINED CELL # 0.1 K/mm3 (0.0-0.4); LARGE UNSTAINED CELL % 1.3 % (0.0-4.0); LYMPH # 0.5 K/mm3 (1.5-4.5); LYMPH % 5.8 % (24.0-44.0); MEAN CORPUSCULAR HEMOGLOBIN 29.2 pg (27.0-33.0); MEAN CORPUSCULAR HGB CONC 33.4 g/dl (32.0-36.5); MEAN CORPUSCULAR VOLUME 87.7 fl (80.0-96.0); MONO # 0.2 K/mm3 (0.0-0.8); NEUTROPHILS # 7.2 K/mm3 (1.8-7.7); NEUTROPHILS % 88.5 % (36.0-66.0); RED CELL DISTRIBUTION WIDTH 12.5 % (11.5-14.5); WHITE BLOOD COUNT 8.1 K/mm3 (4.0-10.0)
[2016-07-11 04:58] LABS: ALBUMIN 2.1 GM/DL (3.2-5.2); ALBUMIN/GLOBULIN RATIO 0.66 (1.00-1.93); BILIRUBIN,TOTAL 0.3 MG/DL (0.2-1.0); CALCIUM LEVEL 8.1 MG/DL (8.8-10.2); CREATININE FOR GFR 1.69 MG/DL (0.70-1.30); GLOMERULAR FILTRATION RATE 43.2 (>49); TOTAL PROTEIN 5.3 GM/DL (6.4-8.2)
[2016-07-11 04:59] LABS: PLATELET COUNT, AUTOMATED 94 k/mm3 (150-450)
[2016-07-11] MEDS: HumaLOG INSULIN (NovoLOG) PER UNIT SC SCH ×4 (07:20→20:19)
[2016-07-11] MEDS: ADVAIR DISKUS 500/50 INH PWD INH SCH ×2 (07:39→19:07)
[2016-07-11] MEDS: TIOTROPIUM INHALER/CAPSULE (SPIRIVA) INH SCH (07:39)
[2016-07-11 08:00] VITALS: BP 153/74
[2016-07-11] MEDS: ATORVASTATIN 20 MG TAB PO SCH (08:06)
[2016-07-11] MEDS: DOXYCYCLINE HYCLATE 100 MG in D5W MINI-BAG PLUS 100 ML IV SCH ×2 (08:06→20:14)
[2016-07-11] MEDS: HEPARIN SOD (PORCINE) 5000 UNITS/ML VIAL SQ SCH ×2 (08:06→20:15)
[2016-07-11] MEDS: ASPIRIN 81 MG CHEW TABLET PO SCH (08:07)
[2016-07-11] MEDS: CARVedilol 12.5 MG TAB PO SCH ×2 (08:07→20:15)
[2016-07-11] MEDS: **hydrALAZINE** 50 MG TAB PO SCH ×3 (08:07→20:15)
[2016-07-11] MEDS: PANTOPRAZOLE 40MG TAB (PROTONIX) PO SCH (08:07)
[2016-07-11] MEDS: amLODIPine 10 MG TAB PO SCH (08:07)
[2016-07-11] MEDS: ISOSORBIDE DIN. (ISORDIL) 20 MG TAB PO SCH ×3 (08:17→20:14)
[2016-07-11 12:00] VITALS: BP 139/66
--- NOTE | 2016-07-11 14:15 | IPNPDOC ---
Text Note Date of Service The patient was seen on 07/11/16 at 14:13. NOTE Subjective: Patient states shortness of breath has significantly improved. Pt denies any chest pain/palpitations. Objective: Vitals: (see below) General: No acute distress, laying comfortably in bed. HEENT: Moist mucous membranes. Neck: No JVD or lymphadenopathy Cardiac: RRR, No murmurs Pulm: Coarse crackles and diminished breath sounds at the bases b/l. No wheezing , no rhonchi. No stridor Abd: NT/ND + BS obese Ext: 1+ edema. No cyanosis Labs (see below) Images: CXR 06/29/16 Impression: Cardiomegaly with some improvement in the vascular congestion in the upper lung zones, but without bilateral effusions and basilar atelectatic changes, left greater than right. Renal u/s 06/23/16 IMPRESSION: 1. No evidence to suggest renal artery stenosis. 2. Increased renal cortical echogenicity consistent with medical renal disease. Assessment/Plan 1. Status post acute decompensated diastolic heart failure- diuresed very well. Currently asymptomatic. Cardiology input appreciated. Lasix currently held and patient received 1 dose of spironolactone per cardiology. Troponins are trending down, unlikely secondary to his decompensated heart failure. 2. Status post acute hypoxic and hypercapnic respiratory requiring mechanical ventilation. Extubated 06/28/16. Continue nebs, increase to q4h, and steroids. Respiratory status is much improved. 3. Hypertensive urgency; has notable LVH and left bundle-branch block. BP controlled. On Beta franklyn. TIFFANIE inhibitor reason Lasix held given acute renal failure. On clonidine patch, and hydralazine. S/p Nitroglycerin drip. 4. Nonoliguric acute renal failure- much improved. Renal ultrasound (see above) . avoid nephrotoxins. Strict I/O. Appreciate nephrology input 5. Diabetes mellitus- we'll increase Levemir dosage. 6. GERD- on PPI DVT prophylaxis- heparin subcutaneous VS,Fishbone, I+O VS, Fishbone, I+O Laboratory Tests 07/11/16 04:08 Calcium Level 8.1 L, Aspartate Amino Transf (AST/SGOT) 15, Alanine Aminotransferase (ALT/SGPT) 26, Alkaline Phosphatase 57, Total Bilirubin 0.3, Total Protein 5.3 L, Albumin 2.1 L, Red Blood Count 3.56 L, Mean Corpuscular Volume 87.7, Mean Corpuscular Hemoglobin 29.2, Mean Corpuscular Hemoglobin Concent 33.4, Red Cell Distribution Width 12.5, Neutrophils (%) (Auto) 88.5 H, Lymphocytes (%) (Auto) 5.8 L, Monocytes (%) (Auto) 3.0, Eosinophils (%) (Auto) 1.0, Basophils (%) (Auto) 0.5, Neutrophils # (Auto) 7.2, Lymphocytes # (Auto) 0.5 L, Monocytes # (Auto) 0.2, Eosinophils # (Auto) 0.1, Basophils # (Auto) 0.0 Vital Signs Date Time Temp Pulse Resp B/P Pulse Ox O2 Delivery O2 Flow Rate FiO2 07/11/16 12:00 97.6 71 22 139/66 93 Nasal Cannula 2.0 07/10/16 08:00 30 I&O- Last 24 Hours up to 6 AM 07/11/16 06:00 Intake Total 1880 ml Output Total 2475 ml Balance -595 ml JANNETTE ANDERSEN MD Jul 11, 2016 14:15
[2016-07-11 16:00] VITALS: BP 128/60
[2016-07-11 20:00] VITALS: BP 161/74
[2016-07-11] MEDS: predniSONE 10 MG TAB PO SCH (20:15)
[2016-07-11] MEDS: LEVEMIR (INSULIN DETEMIR) 1 UNITS/0.01ML SC SCH (20:16)
[2016-07-12] VITALS (8 sets, daily range): BP systolic 142–176; BP diastolic 63–80
[2016-07-12] MEDS ORDERED: SPIRONOLACTONE 25 MG TAB PO ONE
[2016-07-12] MEDS: IPRATROPIUM 0.5MG/ALBUTEROL 2.5MG INH SOL UD 3ML (DUONEB)(J7620) NEB SCH ×6 (03:22→23:14)
--- NOTE | 2016-07-12 03:24 | EDDOCDS ---
Nurse's Notes [facility] Name: Maurilio Mcmullen Age: 66 yrs Sex: Male : 1950 Arrival Date: 07/09/2016 Time: 22:38 Bed 4 Private MD: Butch Elder A. Diagnosis: Respiratory failure, unspecified with hypercapnia;Hypertensive heart disease with heart failure;Pneumonia in diseases classified elsewhere Presentation: 07/09 22:40 Presenting complaint: Patient states: sister states just released from hospital today [facility] for breathing problems, and he started having trouble breathing about an hour ago. Presented passenger in car unable to get out due to weakness, difficulty speaking due SOB. Adult Sepsis Screening: The patient does not have new or worsening altered mentation. Patient has a respiratory rate of greater than or equal to 22 (1 point). Systolic blood pressure is less than or equal to 100 (1 point). Patient has a qSOFA score of 1- Negative Sepsis Screen. Suicide/Homicide risk assessment- Unable to assess, the patient is critically ill. Status: Patient is not a service technician or dependent. Transition of care: patient was not received from another setting of care. 22:40 Acuity: DIDI Level 2 [facility] 22:40 Method Of Arrival: Walkin/Carried/Asstd [facility] Triage Assessment: 22:44 General: Appears distressed. Pain: Denies pain. Respiratory: Onset: The [facility] symptoms/episode began/occurred just prior to arrival, Airway is patent Respiratory effort is labored, pursed lip, Respiratory pattern is tachypnea. Derm: Skin is pale. Historical: - Allergies: no known allergies; - Home Meds: 1. Unknown 2. amlodipine 10 mg Oral tab 1 tab once daily 3. carvedilol 6.25 mg oral tab 1 tab 2 times per day 4. clonidine HCl 0.2 mg oral tab 1 patch 5. hydralazine 75 mg Oral tab 3 times per day 6. isosorbide dinitrate 20 mg Oral tab 1 tab 3 times per day 7. pantoprazole 40 mg oral grps 1 packet once daily 8. prednisone 10 mg Oral tab once daily - PMHx: respiratory distress; Hypertension; intubation; Renal Failure w/o Dialysis; Diabetes - NIDDM: uncontrolled; GERD; COPD; - PSHx: none; - Social history: Smoking status: Patient states former smoker of tobacco. No barriers to communication noted. - Family history: Not pertinent. - : The pt / caregiver states he / she is not on anticoagulants. Home medication list is obtained from [employer] import data. - Exposure Risk Screening:: None identified. Screenin:52 Screening information is obtained from the patient. Fall risk: At risk due to age, The af2 following interventions are performed due to a positive Fall Risk Screen: Fall Risk is added to Special Handling on the patient Summary Screen. A Fall Risk Bracelet was applied to the patient. Side Rails are placed in the up position. A Call Painter is given with instruction to call for help when getting out of bed. Fall Alert bracelet is placed on the patient. Assistance ADL's: requires no assistance with activities of daily living. Abuse/DV Screen: The patient / caregiver reports he/she is: not in a situation that causes fear, pain or injury. Nutritional screening: On diabetic diet. Advance Directives: Currently, there is no health care proxy. home support is adequate. Assessment: 22:53 General: Appears distressed, Behavior is anxious. Pain: Denies pain. Neurological: af2 Level of Consciousness is awake, alert, obeys commands, Oriented to person, place, time. Cardiovascular: Rhythm is sinus tachycardia Chest pain is denied. Respiratory: Airway is patent Respiratory effort is labored, shallow, Respiratory pattern is tachypnea Breath sounds are coarse in left lower lobe and right lower lobe Breath sounds are diminished bilaterally. Derm: Skin is pale. 22:57 Cardiovascular: Edema is 2+ to left midcalf, left ankle, left foot, right midcalf, af2 right ankle and right foot pitting to left midcalf, left ankle, left foot, right midcalf, right ankle and right foot Pulses are palpable in right dorsalis pedis artery and left dorsalis pedis artery. 23:34 General: pt placed on Bi-Pap at this time, RT at bedside.. af2 07/10 00:42 General: Appears in no apparent distress, Behavior is cooperative. Neurological: Level af2 of Consciousness is awake, alert, obeys commands, Oriented to person, place, time. Cardiovascular: Rhythm is sinus rhythm. Respiratory: Airway is patent Respiratory effort is labored, Respiratory pattern is tachypnea Breath sounds with crackles bilaterally. Breath sounds are diminished bilaterally. Derm: Skin is normal. 01:03 General: ICU to call when ready for pt report.. af2 02:00 General: Appears in no apparent distress, Behavior is cooperative. Neurological: Level af2 of Consciousness is awake, alert, obeys commands, Oriented to person, place, time. Respiratory: Airway is patent Respiratory effort is unlabored. Derm: Skin is normal. Vital Signs: 07/09 22:44 BP 220 / 104; Pulse 110; Resp 32; Pulse Ox 58% on R/A; Weight 89.81 kg; Height 5 ft. 4 cjh in. (162.56 cm); Pain 0/10; 22:48 BP 218 / 104 (auto/); af2 22:49 Pulse 110 MON; Resp 30 S; Pulse Ox 99% on Non-rebreather mask; af2 22:55 BP 213 / 102 (auto/); mlc 22:56 Pulse 110 MON; Resp 30 S; Pulse Ox 98% on 40% BiPAP; mlc 23:10 BP 212 / 104 (auto/); mlc 23:11 Pulse 108 MON; Pulse Ox 99% on 40% BiPAP; mlc 23:25 BP 224 / 102 (auto/); mlc 23:26 Pulse 106 MON; Resp 30 S; Pulse Ox 99% on 40% BiPAP; mlc 23:40 BP 198 / 68 (auto/); mlc 23:41 Pulse 98 MON; Resp 30 S; Pulse Ox 97% on 40% BiPAP; mlc 07/10 00:41 BP 155 / 69 (auto/); af2 00:41 Pulse 80 MON; Resp 26 S; Pulse Ox 98% on 40% BiPAP; af2 00:57 Temp 97.8(TE); ajs 01:24 BP 157 / 77 (auto/); af2 01:25 Pulse 78 MON; Resp 28 S; Pulse Ox 97% on 40% BiPAP; af2 01:26 BP 154 / 78 (auto/); af2 01:27 Pulse 76 MON; Resp 26 S; Pulse Ox 97% on BiPAP; af2 01:40 Pulse 76 MON; Pulse Ox 93% ; af2 01:41 BP 155 / 76 (auto/); af2 02:11 BP 154 / 74 (auto/); af2 02:12 Pulse 76 MON; Pulse Ox 98% on 40% BiPAP; af2 07/09 22:44 Body Mass Index 33.99 (89.81 kg, 162.56 cm) [facility] Vitals: 02:17 Log In Time: July 09, 2016 at 22:44. af2 ED Course: 07/09 22:39 Patient visited by Justina Valencia PCA. rs6 22:39 Butch Elder is Private Physician. rs6 22:39 Patient moved to Waiting rs6 22:40 Steffany Cha RN is Primary Nurse. cz 22:40 Patient moved to 4 cz 22:43 Triage Initiated [facility] 22:52 The patient / caregiver is instructed regarding the plan of care and ED course. Patient af2 has correct armband on for positive identification. Placed in gown. groundwater monitoring technician on. Pulse ox on. NIBP on. 22:55 O2 via non-rebreather \T\ 15L/min. af2 22:55 Response to O2 therapy: symptoms improved. af2 22:55 Inserted saline lock: 18 gauge in right antecubital area and blood collected. The af2 patient tolerated the procedure well. 22:58 Patient visited by Steffany Cha RN. af2 22:58 Basic Metabolic Profile Sent. af2 22:58 CBC with Diff Sent. af2 22:58 -Blood Culture Sent. af2 23:02 Linus Robles DO is Attending Physician. cs11 23:02 Patient visited by Linus Robles DO. cs11 23:05 -Arterial Blood Gas Sent. cs15 23:07 EKG done. (by ED staff). Reviewed by Linus Robles DO. rn1 23:08 Patient visited by Steffany Cha RN. af2 23:12 Notified attending ED physician of Critical lab value. pH 7.220 CO2 63.4. cz 23:21 BNP Sent. af2 23:34 Patient visited by Steffany Cha RN. af2 23:49 BLOOD CULTURES Sent. ajs 23:50 BIPAP: Inspiratory Pressure: 14, Expiratory Pressure: 6, FiO2: 40%, Full face fask. af2 23:51 Patient visited by Steffany Cha RN. af2 07/10 00:03 Patient visited by Bhakti Limon RN. mlc 00:37 Mickey Urbina MD is Hospitalizing Provider. cs11 00:44 Patient visited by Steffany Cha RN. af2 00:46 ARTERIAL BLOOD GAS Sent. jc3 00:50 [id number] Payment Agreement was scanned into [employer] and attached to record. lja 00:57 Patient visited by Luly Velasquez. ajs 01:03 Patient visited by Steffany Cha,RN. af2 01:45 Patient visited by Steffany Cha,RN. af2 02:16 No procedures done that require assistance. af2 02:57 T-Sheet-- Draft Copy was scanned into [employer] and attached to record. hs2 12:26 ECG/EKG was scanned into [employer] and attached to record. gb Administered Medications: 07/09 23:33 Drug: Nitro-Bid 1 inches [Nitro-Bid 2 % transdermal ointment (1 inches)] Route: af2 Transdermal; Site: left upper arm; 07/10 00:41 Drug: Furosemide 60 mg [furosemide 10 mg/mL injection solution (6 mL)] Route: IVP; af2 Site: right antecubital; 00:55 Drug: cefUROXime 1.5 grams [cefuroxime sodium 750 mg solution for injection] Route: IV; af2 Rate: calculated rate; Infused Over: 30 mins; Site: right antecubital; RT: 07/09 23:05 ABG's drawn from right radial artery allens test done and positive pressure held for 5 cs15 minutes no bleeding noted pressure bandage applied specimen sent pt. tolerated well. O2 via non-rebreather \T\ 15L/min. 23:45 BIPAP: Inspiratory Pressure: 14, Expiratory Pressure: 6, Backup Rate: 10, FiO2: 40%, cs15 Full face fask. 07/10 00:46 ABG's drawn from right radial artery pressure held for 5 minutes no bleeding noted jc3 pressure bandage applied specimen sent pt. tolerated well. 02:16 Respiratory Transport: Transported From ED Transported to ICU. jc3 Order Results: Lab Order: Basic Metabolic Profile; SPEC'M 07/09/16 22:46 Test: GLUCOSE, FASTING; Value: 236; Range: 80-110; Abnormal: Above high normal; Units: MG/DL; Status: F Test: BLOOD UREA NITROGEN; Value: 30; Range: 7-18; Abnormal: Above high normal; Units: MG/DL; Status: F Test: CREATININE FOR GFR; Value: 1.62; Range: 0.70-1.30; Abnormal: Above high normal; Units: MG/DL; Status: F Test: GLOMERULAR FILTRATION RATE; Value: 45.3; Range: >49; Abnormal: Below low normal; Status: F Test: SODIUM LEVEL; Value: 140; Range: 136-145; Units: MEQ/L; Status: F Test: POTASSIUM SERUM; Value: 4.0; Range: 3.5-5.1; Units: MEQ/L; Status: F Test: CHLORIDE LEVEL; Value: 102; Range: 98-107; Units: MEQ/L; Status: F Test: CARBON DIOXIDE LEVEL; Value: 27; Range: 21-32; Units: MEQ/L; Status: F Test: ANION GAP; Value: 11; Range: 8-16; Units: MEQ/L; Status: F Test: CALCIUM LEVEL; Value: 8.2; Range: 8.8-10.2; Abnormal: Below low normal; Units: MG/DL; Status: F Test Note: ; Units are mL/min/1.73 m2 Chronic Kidney Disease Staging per NKF: Stage I & II GFR >=60 Normal to Mildly Decreased Stage III GFR 30-59 Moderately Decreased Stage IV GFR 15-29 Severely Decreased Stage V GFR <15 Very Little GFR Left ESRD GFR <15 on RELAY MAN Lab Order: CBC with Diff; SPEC'M 07/09/16 22:46 Test: WHITE BLOOD COUNT; Value: 20.3; Range: 4.0-10.0; Abnormal: Above high normal; Units: K/mm3; Status: F Test: RED BLOOD COUNT; Value: 4.37; Range: 4.30-6.10; Units: M/mm3; Status: F Test: HEMOGLOBIN; Value: 12.7; Range: 14.0-18.0; Abnormal: Below low normal; Units: g/dl; Status: F Test: HEMATOCRIT; Value: 38.8; Range: 42.0-52.0; Abnormal: Below low normal; Units: %; Status: F Test: MEAN CORPUSCULAR VOLUME; Value: 88.8; Range: 80.0-96.0; Units: fl; Status: F Test: MEAN CORPUSCULAR HEMOGLOBIN; Value: 29.2; Range: 27.0-33.0; Units: pg; Status: F Test: MEAN CORPUSCULAR HGB CONC; Value: 32.8; Range: 32.0-36.5; Units: g/dl; Status: F Test: RED CELL DISTRIBUTION WIDTH; Value: 12.5; Range: 11.5-14.5; Units: %; Status: F Test: PLATELET COUNT, AUTOMATED; Value: 122; Range: 150-450; Abnormal: Below low normal; Units: k/mm3; Status: F Test: NEUTROPHILS %; Value: 89.1; Range: 36.0-66.0; Abnormal: Above high normal; Units: %; Status: F Test: LYMPH %; Value: 4.3; Range: 24.0-44.0; Abnormal: Below low normal; Units: %; Status: F Test: MONO %; Value: 3.7; Range: 0.0-5.0; Units: %; Status: F Test: EOS %; Value: 1.4; Range: 0.0-3.0; Units: %; Status: F Test: BASO %; Value: 0.2; Range: 0.0-1.0; Units: %; Status: F Test: LARGE UNSTAINED CELL %; Value: 1.3; Range: 0.0-4.0; Units: %; Status: F Test: NEUTROPHILS #; Value: 18.1; Range: 1.8-7.7; Abnormal: Above high normal; Units: K/mm3; Status: F Test: LYMPH #; Value: 0.9; Range: 1.5-4.5; Abnormal: Below low normal; Units: K/mm3; Status: F Test: MONO #; Value: 0.8; Range: 0.0-0.8; Units: K/mm3; Status: F Test: EOS #; Value: 0.3; Range: 0.0-0.50; Units: K/mm3; Status: F Test: BASO #; Value: 0.0; Range: 0.0-0.2; Units: K/mm3; Status: F Test: LARGE UNSTAINED CELL #; Value: 0.3; Range: 0.0-0.4; Units: K/mm3; Status: F Lab Order: -Arterial Blood Gas; [facility]' 07/09/16 23:04 Test: ABG pH (ARTERIAL); Value: 7.220; Range: 7.350-7.450; Abnormal: Critical Low; Units: UNITS; Status: F Test: ABG PARTIAL PRESSURE CO2; Value: 63.4; Range: 35.0-45.0; Abnormal: Above upper panic limits; Units: mmHg; Status: F Test: ABG PARTIAL PRESSURE O2; Value: 372.2; Range: 75.0-100.0; Abnormal: Above high normal; Units: mmHg; Status: F Test: ABG TOTAL CO2; Value: 27.3; Range: 23.0-31.0; Units: MEQ/L; Status: F Test: ABG HCO3; Value: 25.4; Range: 22.0-26.0; Units: MEQ/L; Status: F Test: ABG BASE EXCESS; Value: -3.5; Range: -2.0-2.0; Abnormal: Below low normal; Status: F Test: ABG STANDARD HCO3; Value: 21.7; Range: 22.0-26.0; Abnormal: Below low normal; Units: MEQ/L; Status: F Test: ABG O2 SATURATION; Value: 99.9; Range: 95.0-99.0; Abnormal: Above high normal; Units: %; Status: F Test: ABG DEVICE; Value: NASAL LOVE; Status: F Lab Order: BNP; [facility]' 07/09/16 22:46 Test: BRAIN NATRIURETIC PEPTIDE; Value: 1580; Range: <100; Abnormal: Above high normal; Units: PG/ML; Status: F Lab Order: CARDIAC MARKER PANEL; [facility]' 07/09/16 22:46 Test: CPK CREATINE PHOSPHOKINASE; Value: 112; Range: 39-308; Units: U/L; Status: F Test: CK-MB VALUE MASS; Value: 12.4; Range: 0.0-3.6; Abnormal: Above high normal; Units: NG/ML; Status: F Test: MB/CK RELATIVE INDEX; Value: 11.07; Range: < OR =4; Abnormal: Above high normal; Status: F Test: TROPONIN I; Value: 0.16; Range: < 0.10; Abnormal: Above high normal; Units: NG/ML; Status: F Test Note: ; DIAGNOSIS CRITERIA MMB ng/ml Relative Index (RI) NON-AMI < or = 5 N/A [place] > 5 < or = 4 AMI > 5 > 4 Lab Order: ARTERIAL BLOOD GAS; SPEC'M 07/10/16 00:36 Test: ABG pH (ARTERIAL); Value: 7.410; Range: 7.350-7.450; Units: UNITS; Status: F Test: ABG PARTIAL PRESSURE CO2; Value: 39.9; Range: 35.0-45.0; Units: mmHg; Status: F Test: ABG PARTIAL PRESSURE O2; Value: 102.9; Range: 75.0-100.0; Abnormal: Above high normal; Units: mmHg; Status: F Test: ABG TOTAL CO2; Value: 25.9; Range: 23.0-31.0; Units: MEQ/L; Status: F Test: ABG HCO3; Value: 24.7; Range: 22.0-26.0; Units: MEQ/L; Status: F Test: ABG BASE EXCESS; Value: 0.1; Range: -2.0-2.0; Status: F Test: ABG STANDARD HCO3; Value: 24.6; Range: 22.0-26.0; Units: MEQ/L; Status: F Test: ABG O2 SATURATION; Value: 98.2; Range: 95.0-99.0; Units: %; Status: F Outcome: 00:39 Decision to Hospitalize by Provider. cs11 02:16 Discharge Assessment: Patient awake, alert and oriented x 3. No cognitive and/or af2 functional deficits noted. Patient verbalized understanding of disposition instructions. patient administered narcotics - no. The following High Risk Discharge criteria are identified: None. Admitted to ICU accompanied by nurse, accompanied by tech, via stretcher, with oxygen, on monitor, with chart. Condition: stable. No special radiology studies were completed. Property :Personal belongings accompany Pt. 02:23 Patient left the ED. cz Signatures: Tripp Oneal RN RN Cristiane Haque, Guy Rueda jc3 Luly Velasquez Jane, RN RN [facility] Linus Robles DO DO cs11 Bhakti Limon RN RN [facility] Justina Valencia, RETAIL MARKETING SPECIALIST RETAIL MARKETING SPECIALIST rs6 Steffany Cha RN RN af2 Sherman Salas rn1 Arel, Karl Beckwith,RT RT cs15 Fallon Heath, Reg Reg hs2 Corrections: (The following items were deleted from the chart) 07/09 22:47 22:44 BP 220 / 104; Pulse 110bpm; Resp 32bpm; Pulse Ox 58% RA; Height 5 ft. 4 in.; Pain cjh 0/10; cjh 23:24 23:22 CARDIAC MARKER PANEL+LAB sent. af2 EDMS Chart Complete MTDD
--- NOTE | 2016-07-12 03:24 | EDDOCDS ---
Physician Documentation [facility] Name: Maurilio Mcmullen Age: 66 yrs Sex: Male : 1950 Arrival Date: 07/09/2016 Time: 22:38 Bed 4 Private MD: Butch Elder A. Disposition: 07/10 00:39 Critical Care:. cs11 Disposition: 07/10/16 00:39 Hospitalization ordered by Mickey Urbina for Inpatient Admission. Preliminary diagnosis are Respiratory failure, unspecified with hypercapnia, Hypertensive heart disease with heart failure, Pneumonia in diseases classified elsewhere. - Bed requested for M ICU. - Status is Inpatient Admission. cz - Condition is Stable. - Problem is new. - Symptoms have improved. Historical: - Allergies: no known allergies; - Home Meds: 1. Unknown 2. amlodipine 10 mg Oral tab 1 tab once daily 3. carvedilol 6.25 mg oral tab 1 tab 2 times per day 4. clonidine HCl 0.2 mg oral tab 1 patch 5. hydralazine 75 mg Oral tab 3 times per day 6. isosorbide dinitrate 20 mg Oral tab 1 tab 3 times per day 7. pantoprazole 40 mg oral grps 1 packet once daily 8. prednisone 10 mg Oral tab once daily - PMHx: respiratory distress; Hypertension; intubation; Renal Failure w/o Dialysis; Diabetes - NIDDM: uncontrolled; GERD; COPD; - PSHx: none; - Social history: Smoking status: Patient states former smoker of tobacco. No barriers to communication noted. - Family history: Not pertinent. - : The pt / caregiver states he / she is not on anticoagulants. Home medication list is obtained from [employer] import data. - Exposure Risk Screening:: None identified. Vital Signs: 07/09 22:44 BP 220 / 104; Pulse 110; Resp 32; Pulse Ox 58% on R/A; Weight 89.81 kg / 198 lbs; [facility] Height 5 ft. 4 in. (162.56 cm); Pain 0/10; 22:48 BP 218 / 104 (auto/); af2 22:49 Pulse 110 MON; Resp 30 S; Pulse Ox 99% on Non-rebreather mask; af2 22:55 BP 213 / 102 (auto/); mlc 22:56 Pulse 110 MON; Resp 30 S; Pulse Ox 98% on 40% BiPAP; mlc 23:10 BP 212 / 104 (auto/); mlc 23:11 Pulse 108 MON; Pulse Ox 99% on 40% BiPAP; mlc 23:25 BP 224 / 102 (auto/); mlc 23:26 Pulse 106 MON; Resp 30 S; Pulse Ox 99% on 40% BiPAP; mlc 23:40 BP 198 / 68 (auto/); mlc 23:41 Pulse 98 MON; Resp 30 S; Pulse Ox 97% on 40% BiPAP; mlc 07/10 00:41 BP 155 / 69 (auto/); af2 00:41 Pulse 80 MON; Resp 26 S; Pulse Ox 98% on 40% BiPAP; af2 00:57 Temp 97.8(TE); ajs 01:24 BP 157 / 77 (auto/); af2 01:25 Pulse 78 MON; Resp 28 S; Pulse Ox 97% on 40% BiPAP; af2 01:26 BP 154 / 78 (auto/); af2 01:27 Pulse 76 MON; Resp 26 S; Pulse Ox 97% on BiPAP; af2 01:40 Pulse 76 MON; Pulse Ox 93% ; af2 01:41 BP 155 / 76 (auto/); af2 02:11 BP 154 / 74 (auto/); af2 02:12 Pulse 76 MON; Pulse Ox 98% on 40% BiPAP; af2 07/09 22:44 Body Mass Index 33.99 (89.81 kg, 162.56 cm) [facility] MDM: 07/09 22:53 -Blood Culture (Adults Only), peripheral from different site, or from device/port/PICC [facility] etc. if present ordered. 22:53 Molded Goods Operator/Pulse Ox/q 15 min VS ordered. [facility] 22:53 IV Saline Lock ordered. [facility] 22:53 Oxygen at 4L/Min NC or Home dosage ordered. [facility] 22:53 Rhythm Strip to chart ordered. [facility] 22:53 Call Respiratory ordered. [facility] 22:54 Call Respiratory complete. cj 22:54 -Blood Culture Ordered. EDMS 22:54 Basic Metabolic Profile Ordered. EDMS 22:54 CBC with Diff Ordered. EDMS 22:54 ECG WITH READING ER PHYS+CARDIAG ordered. EDMS 22:55 -Arterial Blood Gas Ordered. EDMS 22:57 -Blood Culture (Adults Only), peripheral from different site, or from device/port/PICC kb5 etc. if present complete. 22:59 BLOOD CULTURES Ordered. EDMS 23:19 Basic Metabolic Profile Reviewed. cs11 23:19 CBC with Diff Reviewed. cs11 23:19 -Arterial Blood Gas Reviewed. cs11 23:20 Nitro-Bid Ointment 2 % 1 inches Transdermal once ordered. cs11 23:20 Call Respiratory ordered. cs11 23:21 BNP Ordered. EDMS 23:22 Call Respiratory complete. af2 23:24 CARDIAC MARKER PANEL Ordered. EDMS 23:47 Basic Metabolic Profile Reviewed. cs11 23:47 CARDIAC MARKER PANEL Reviewed. cs11 23:49 Chest, 1 View Ordered. EDMS 07/10 00:16 BNP Reviewed. cs11 00:17 Furosemide 60 mg IVP once ordered. cs11 00:17 cefUROXime 1.5 grams IV at calculated rate once over 30 mins; dilute in 50mL of NS or cs11 D5W ordered. 00:31 Admission / Observation Status ordered. EDMS 00:31 ECHOCARD,DOPPLER/COLOR FLOW ordered. EDMS 00:31 NPO DIET ordered. EDMS 00:32 ARTERIAL BLOOD GAS Ordered. EDMS 00:36 BED REQUEST+ADM ordered. EDMS 00:50 [facility] [place] [facility] Payment Agreement was scanned into [employer] and attached to record. lja 00:50 Financial registration complete. lja 01:31 TROPONIN Ordered. EDMS 01:52 BIPAP INPATIENT ordered. EDMS 02:05 MRSA SCREEN Ordered. EDMS 02:57 T-Sheet-- Draft Copy was scanned into [employer] and attached to record. hs2 12:26 ECG/EKG was scanned into [employer] and attached to record. gb Administered Medications: 07/09 23:33 Drug: Nitro-Bid 1 inches [Nitro-Bid 2 % transdermal ointment (1 inches)] Route: af2 Transdermal; Site: left upper arm; 07/10 00:41 Drug: Furosemide 60 mg [furosemide 10 mg/mL injection solution (6 mL)] Route: IVP; af2 Site: right antecubital; 00:55 Drug: cefUROXime 1.5 grams [cefuroxime sodium 750 mg solution for injection] Route: IV; af2 Rate: calculated rate; Infused Over: 30 mins; Site: right antecubital; Critical Care Time: 00:39 Critical care time: Bedside Care: 60 minutes. Total time: 60 minutes cs11 Signatures: Dispatcher [employer] EDMS Tripp Oneal, RN RN Cristiane Haque, Reg Reg gb Miguel Davila, GRAHAM APPLICATIONS INSTRUCTOR kb5 Kaycee StevensRN RN Linus Schwartz, DO DO cs11 Steffany ChaRN RN af2 Ianl, Fallon Hennessy, Reg Reg hs2 The chart was reviewed and I authenticate all verbal orders and agree with the evaluation and treatment provided.Corrections: (The following items were deleted from the chart) 07/09 23:24 23:21 CARDIAC MARKER PANEL+LAB ordered. EDMS EDMS Attachments: 07/10 00:50 [facility] [place] Payment Agreement [facility] 02:57 T-Sheet-- Draft Copy hs2 12:26 ECG/EKG Chart Complete MTDD
--- NOTE | 2016-07-12 03:24 | EDDOCDS ---
Physician Documentation [facility] Name: Maurilio Mcmullen Age: 66 yrs Sex: Male : 1950 Arrival Date: 07/09/2016 Time: 22:38 Bed 4 Private MD: Butch Elder A. Disposition: 07/10 00:39 Critical Care:. cs11 Disposition: 07/10/16 00:39 Hospitalization ordered by Mickey Urbina for Inpatient Admission. Preliminary diagnosis are Respiratory failure, unspecified with hypercapnia, Hypertensive heart disease with heart failure, Pneumonia in diseases classified elsewhere. - Bed requested for M ICU. - Status is Inpatient Admission. cz - Condition is Stable. - Problem is new. - Symptoms have improved. Historical: - Allergies: no known allergies; - Home Meds: 1. Unknown 2. amlodipine 10 mg Oral tab 1 tab once daily 3. carvedilol 6.25 mg oral tab 1 tab 2 times per day 4. clonidine HCl 0.2 mg oral tab 1 patch 5. hydralazine 75 mg Oral tab 3 times per day 6. isosorbide dinitrate 20 mg Oral tab 1 tab 3 times per day 7. pantoprazole 40 mg oral grps 1 packet once daily 8. prednisone 10 mg Oral tab once daily - PMHx: respiratory distress; Hypertension; intubation; Renal Failure w/o Dialysis; Diabetes - NIDDM: uncontrolled; GERD; COPD; - PSHx: none; - Social history: Smoking status: Patient states former smoker of tobacco. No barriers to communication noted. - Family history: Not pertinent. - : The pt / caregiver states he / she is not on anticoagulants. Home medication list is obtained from [employer] import data. - Exposure Risk Screening:: None identified. Vital Signs: 07/09 22:44 BP 220 / 104; Pulse 110; Resp 32; Pulse Ox 58% on R/A; Weight 89.81 kg / 198 lbs; [facility] Height 5 ft. 4 in. (162.56 cm); Pain 0/10; 22:48 BP 218 / 104 (auto/); af2 22:49 Pulse 110 MON; Resp 30 S; Pulse Ox 99% on Non-rebreather mask; af2 22:55 BP 213 / 102 (auto/); mlc 22:56 Pulse 110 MON; Resp 30 S; Pulse Ox 98% on 40% BiPAP; mlc 23:10 BP 212 / 104 (auto/); mlc 23:11 Pulse 108 MON; Pulse Ox 99% on 40% BiPAP; mlc 23:25 BP 224 / 102 (auto/); mlc 23:26 Pulse 106 MON; Resp 30 S; Pulse Ox 99% on 40% BiPAP; mlc 23:40 BP 198 / 68 (auto/); mlc 23:41 Pulse 98 MON; Resp 30 S; Pulse Ox 97% on 40% BiPAP; mlc 07/10 00:41 BP 155 / 69 (auto/); af2 00:41 Pulse 80 MON; Resp 26 S; Pulse Ox 98% on 40% BiPAP; af2 00:57 Temp 97.8(TE); ajs 01:24 BP 157 / 77 (auto/); af2 01:25 Pulse 78 MON; Resp 28 S; Pulse Ox 97% on 40% BiPAP; af2 01:26 BP 154 / 78 (auto/); af2 01:27 Pulse 76 MON; Resp 26 S; Pulse Ox 97% on BiPAP; af2 01:40 Pulse 76 MON; Pulse Ox 93% ; af2 01:41 BP 155 / 76 (auto/); af2 02:11 BP 154 / 74 (auto/); af2 02:12 Pulse 76 MON; Pulse Ox 98% on 40% BiPAP; af2 07/09 22:44 Body Mass Index 33.99 (89.81 kg, 162.56 cm) [facility] MDM: 07/09 22:53 -Blood Culture (Adults Only), peripheral from different site, or from device/port/PICC [facility] etc. if present ordered. 22:53 Guest Services Assistant/Pulse Ox/q 15 min VS ordered. [facility] 22:53 IV Saline Lock ordered. [facility] 22:53 Oxygen at 4L/Min NC or Home dosage ordered. [facility] 22:53 Rhythm Strip to chart ordered. [facility] 22:53 Call Respiratory ordered. [facility] 22:54 Call Respiratory complete. cj 22:54 -Blood Culture Ordered. EDMS 22:54 Basic Metabolic Profile Ordered. EDMS 22:54 CBC with Diff Ordered. EDMS 22:54 ECG WITH READING ER PHYS+CARDIAG ordered. EDMS 22:55 -Arterial Blood Gas Ordered. EDMS 22:57 -Blood Culture (Adults Only), peripheral from different site, or from device/port/PICC kb5 etc. if present complete. 22:59 BLOOD CULTURES Ordered. EDMS 23:19 Basic Metabolic Profile Reviewed. cs11 23:19 CBC with Diff Reviewed. cs11 23:19 -Arterial Blood Gas Reviewed. cs11 23:20 Nitro-Bid Ointment 2 % 1 inches Transdermal once ordered. cs11 23:20 Call Respiratory ordered. cs11 23:21 BNP Ordered. EDMS 23:22 Call Respiratory complete. af2 23:24 CARDIAC MARKER PANEL Ordered. EDMS 23:47 Basic Metabolic Profile Reviewed. cs11 23:47 CARDIAC MARKER PANEL Reviewed. cs11 23:49 Chest, 1 View Ordered. EDMS 07/10 00:16 BNP Reviewed. cs11 00:17 Furosemide 60 mg IVP once ordered. cs11 00:17 cefUROXime 1.5 grams IV at calculated rate once over 30 mins; dilute in 50mL of NS or cs11 D5W ordered. 00:31 Admission / Observation Status ordered. EDMS 00:31 ECHOCARD,DOPPLER/COLOR FLOW ordered. EDMS 00:31 NPO DIET ordered. EDMS 00:32 ARTERIAL BLOOD GAS Ordered. EDMS 00:36 BED REQUEST+ADM ordered. EDMS 00:50 [facility] [place] was scanned into [employer] and attached to record. lja 00:50 Financial registration complete. lja 01:31 TROPONIN Ordered. EDMS 01:52 BIPAP INPATIENT ordered. EDMS 02:05 MRSA SCREEN Ordered. EDMS 02:57 T-Sheet-- Draft Copy was scanned into [employer] and attached to record. hs2 12:26 ECG/EKG was scanned into [employer] and attached to record. gb Administered Medications: 07/09 23:33 Drug: Nitro-Bid 1 inches [Nitro-Bid 2 % transdermal ointment (1 inches)] Route: af2 Transdermal; Site: left upper arm; 07/10 00:41 Drug: Furosemide 60 mg [furosemide 10 mg/mL injection solution (6 mL)] Route: IVP; af2 Site: right antecubital; 00:55 Drug: cefUROXime 1.5 grams [cefuroxime sodium 750 mg solution for injection] Route: IV; af2 Rate: calculated rate; Infused Over: 30 mins; Site: right antecubital; Critical Care Time: 00:39 Critical care time: Bedside Care: 60 minutes. Total time: 60 minutes cs11 Signatures: Dispatcher [employer] EDMS Tripp Oneal, RN RN Cristiane Haque, Reg Reg gb Miguel Davila, [employer] kb5 Kaycee StevensRN RN Linus Schwartz, DO DO cs11 Steffany ChaRN RN af2 Ianl, Fallon Hennessy, Reg Reg hs2 The chart was reviewed and I authenticate all verbal orders and agree with the evaluation and treatment provided.Corrections: (The following items were deleted from the chart) 07/09 23:24 23:21 CARDIAC MARKER PANEL+LAB ordered. EDMS EDMS Attachments: 07/10 00:50 [facility] [place] Agreement [facility] 02:57 T-Sheet-- Draft Copy hs2 12:26 ECG/EKG Chart Complete MTDD
[2016-07-12 04:38] LABS: BASO % 0.3 % (0.0-1.0); EOS # 0.1 K/mm3 (0.0-0.50); EOS % 0.7 % (0.0-3.0); LARGE UNSTAINED CELL # 0.1 K/mm3 (0.0-0.4); LARGE UNSTAINED CELL % 1.2 % (0.0-4.0); LYMPH # 0.6 K/mm3 (1.5-4.5); LYMPH % 5.4 % (24.0-44.0); MEAN CORPUSCULAR HEMOGLOBIN 28.6 pg (27.0-33.0); MEAN CORPUSCULAR HGB CONC 33.1 g/dl (32.0-36.5); MEAN CORPUSCULAR VOLUME 86.4 fl (80.0-96.0); MONO # 0.4 K/mm3 (0.0-0.8); MONO % 3.9 % (0.0-5.0); NEUTROPHILS # 8.3 K/mm3 (1.8-7.7); NEUTROPHILS % 88.5 % (36.0-66.0); PLATELET COUNT, AUTOMATED 107 k/mm3 (150-450); RED CELL DISTRIBUTION WIDTH 13.4 % (11.5-14.5); WHITE BLOOD COUNT 9.4 K/mm3 (4.0-10.0)
[2016-07-12 04:54] LABS: CALCIUM LEVEL 8.1 MG/DL (8.8-10.2); CREATININE FOR GFR 1.33 MG/DL (0.70-1.30); GLOMERULAR FILTRATION RATE 56.9 (>49); POTASSIUM SERUM 3.9 MEQ/L (3.5-5.1)
--- NOTE | 2016-07-12 06:35 | IPN ---
DATE: 07/11/2016 Mr. Maurilio Mcmullen was seen earlier this morning. He was in supine in bed in no acute distress. He stated that his shortness of breath has improved. There is no report of fever or chills. There is no bleeding. He was seen yesterday because of acute on chronic congestive heart failure. His blood pressure also was acutely elevated. On physical examination, patient is alert and oriented, in no acute distress at rest. His last vital signs when I saw him revealed a blood pressure of 128/60 with a pulse of 73, respirations 22, and his maximum temperature was 98.1 degrees Fahrenheit with an oxygen saturation of 92% on 2 liters nasal cannula. He has negative fluid balance of 485 mL from 07/10/2016. Examination of the head, ears, eyes, nose and throat: Atraumatic. Neck is supple, no jugular venous distention (JVD). The lungs revealed minimal crackles at the bases. The heart examination revealed normal S1 and S2 without gallops. The point of maximum impulse (PMI) is nondisplaced. There is no rub. Abdomen is soft and nontender. Bowel sounds are active. Extremities revealed +1 bilateral stable pitting lower leg and ankle edema. Neurologic examination is negative for focal deficit. LABORATORY DATA: CBC done today revealed a WBC of 8.1, hemoglobin 10.5, hematocrit 31.2, and platelets 94,000. BMP revealed a sodium of 139, potassium 4.0, chloride 103, CO2 26, BUN 35, creatinine 1.69, GFR 43.2, fasting glucose 236, and calcium 8.1. Troponin was 0.65. Telemetry revealed normal sinus rhythm with isolated PACs. Mr. Maurilio Mcmullen seems to be stable from a cardiac point of view and his shortness of breath as well as his bilateral crackles noted yesterday on physical examination have improved. His medication were reviewed and I will continue same. If he remains stable, I will increase the carvedilol. Lasix can be given as needed to control his fluid retention. He was started yesterday on spironolactone and he will continue the same. I am concerned about his thrombocytopenia and if it remains the same, we shall discontinue the subcutaneous heparin. MTDD
[2016-07-12] MEDS: ADVAIR DISKUS 500/50 INH PWD INH SCH ×2 (07:18→19:59)
[2016-07-12] MEDS: TIOTROPIUM INHALER/CAPSULE (SPIRIVA) INH SCH (07:18)
[2016-07-12] MEDS: ASPIRIN 81 MG CHEW TABLET PO SCH (08:11)
[2016-07-12] MEDS: DOXYCYCLINE HYCLATE 100 MG in D5W MINI-BAG PLUS 100 ML IV SCH ×2 (08:11→21:37)
[2016-07-12] MEDS: HumaLOG INSULIN (NovoLOG) PER UNIT SC SCH ×4 (08:11→21:38)
[2016-07-12] MEDS: ISOSORBIDE DIN. (ISORDIL) 20 MG TAB PO SCH ×3 (08:12→21:34)
[2016-07-12] MEDS: ATORVASTATIN 20 MG TAB PO SCH (08:12)
[2016-07-12] MEDS: **hydrALAZINE** 50 MG TAB PO SCH ×3 (08:13→21:34)
[2016-07-12] MEDS: PANTOPRAZOLE 40MG TAB (PROTONIX) PO SCH (08:13)
[2016-07-12] MEDS: amLODIPine 10 MG TAB PO SCH (08:13)
[2016-07-12] MEDS: CARVedilol 12.5 MG TAB PO SCH ×2 (08:16→21:35)
[2016-07-12 08:29] LABS: RETIC HEMOGLOBIN CONTENT CHr 28.7 PG (24-36); RETICULOCYTE ABSOLUTE ADVIA212 62 x10(9)/L (17-77)
--- NOTE | 2016-07-12 11:09 | IPNPDOC ---
Text Note Date of Service The patient was seen on 07/12/16 at 11:03. NOTE Subjective: Patient has shortness of breath with exertion. Pt denies any chest pain/palpitations. Objective: Vitals: (see below) General: No acute distress, laying comfortably in bed. HEENT: Moist mucous membranes. Neck: No JVD or lymphadenopathy Cardiac: RRR, No murmurs Pulm: Coarse crackles and diminished breath sounds at the bases b/l. No wheezing , Abd: NT/ND + BS obese Ext: 1+ L>R edema. No cyanosis Labs (see below) Images: CXR 06/29/16 Impression: Cardiomegaly with some improvement in the vascular congestion in the upper lung zones, but without bilateral effusions and basilar atelectatic changes, left greater than right. Renal u/s 06/23/16 IMPRESSION: 1. No evidence to suggest renal artery stenosis. 2. Increased renal cortical echogenicity consistent with medical renal disease. Echocardiogram 06/20/16 CONCLUSIONS: 1. Study is of acceptable technical quality. 2. Normal left ventricle (LV) size with severe left ventricular hypertrophy and preserved LV systolic function. Grade 1 diastolic dysfunction. Likely very high left ventricular end-diastolic pressure. 3. No significant valvular disease. 4. Normal RV size and systolic function. 5. High central venous pressure. 6. Unable to accurately estimate pulmonary artery pressure. COMMENT: Study is consistent with severe hypertensive heart disease and diastolic CHF. Assessment/Plan 1. Status post acute decompensated diastolic heart failure- diuresed very well. Currently asymptomatic. Cardiology input appreciated. Troponins are trending down, likely secondary to his decompensated heart failure. On lasix daily. 2. Status post acute hypoxic and hypercapnic respiratory requiring mechanical ventilation. Extubated 06/28/16. Continue nebs, increase to q4h, and steroids. Respiratory status is much improved. 3. Hypertensive; has notable LVH and left bundle-branch block. BP uncontrolled. On Beta franklyn. TIFFANIE inhibitor and Lasix initially held given acute renal failure. On clonidine patch, and hydralazine, coreg. S/p Nitroglycerin drip. Will ultimately need workup for resistant HTN. On spironolactone now so will hold off workup for primary hyperparathyroidism. Renal u/s negative for GURWINDER on 06/23/16. Will need outpt sleep study as likely has GETACHEW. 4. Nonoliguric acute renal failure- much improved. Renal ultrasound (see above) . avoid nephrotoxins. Strict I/O. Appreciate nephrology input 5. Diabetes mellitus- Cont Levemir, SSI. 6. GERD- on PPI DVT prophylaxis- heparin subcutaneous VS,Fishbone, I+O VS, Fishbone, I+O Laboratory Tests 07/12/16 04:06 Calcium Level 8.1 L, Red Blood Count 3.79 L, Mean Corpuscular Volume 86.4, Mean Corpuscular Hemoglobin 28.6, Mean Corpuscular Hemoglobin Concent 33.1, Red Cell Distribution Width 13.4, Neutrophils (%) (Auto) 88.5 H, Lymphocytes (%) (Auto) 5.4 L, Monocytes (%) (Auto) 3.9, Eosinophils (%) (Auto) 0.7, Basophils (%) (Auto ) 0.3, Neutrophils # (Auto) 8.3 H, Lymphocytes # (Auto) 0.6 L, Monocytes # (Auto ) 0.4, Eosinophils # (Auto) 0.1, Basophils # (Auto) 0.0 Vital Signs Date Time Temp Pulse Resp B/P Pulse Ox O2 Delivery O2 Flow Rate FiO2 07/12/16 08:26 Nasal Cannula 2.0 07/12/16 08:16 83 176/80 07/12/16 07:30 97.4 20 91 07/10/16 08:00 30 I&O- Last 24 Hours up to 6 AM 07/12/16 06:00 Intake Total 1260 ml Output Total 1775 ml Balance -515 ml JANNETTE ANDERSEN MD Jul 12, 2016 11:09
[2016-07-12] MEDS ORDERED: FUROSEMIDE 20 MG/2 ML VIAL (J1940) IV ONE (11:15)
[2016-07-12] MEDS: DOCUSATE SODIUM 100 MG CAP PO SCH ×2 (11:22→21:34)
[2016-07-12] MEDS: SPIRONOLACTONE 25 MG TAB PO SCH (11:22)
[2016-07-12] MEDS: MIRALAX *UNIT DOSE* 17GM PACKET PO SCH ×2 (11:22→21:34)
[2016-07-12] MEDS: FUROSEMIDE 20 MG/2 ML VIAL (J1940) IV SCH (11:24)
--- NOTE | 2016-07-12 12:18 | ECHO ---
DATE OF PROCEDURE: 07/10/2016 REFERRING PROVIDER: Dr. Aaron Mari PATIENT LOCATION: Room 3201 REASON FOR THE ECHOCARDIOGRAM: Congestive heart failure. 2D MEASUREMENT: IVS - 2.1 cm LV - 4.6 cm LVPW - 2.1 cm LA - 4.1 cm Aorta 3.1 cm IVC - 2.5 cm DOPPLER MEASUREMENT: Peak velocity across the aortic valve - 1.9 m/s Peak velocity across the LVOT - 1.3 m/s Mitral E - 1.1, Mitral A - 0.8 with a ratio of 1.4. Maximum tricuspid valve velocity 2.7 m/s 2D COMMENTS: 1. Markedly increased left ventricular wall thickness with normal left ventricular size and a normal global left ventricular systolic function. The estimated global left ventricular systolic ejection fraction is 60 to 65%. 2. Mildly enlarged left atrium. Normal right atrium and right ventricle. 3. The atrial septum appears to be normal without evidence of defect or shunt. 4. Normal aortic root. 5. Trace pericardial effusion noted posteriorly, particularly at the base of the left ventricle. 6. Mildly calcified aortic valve, leaflet excursion appeared to be normal. 7. Mildly calcified mitral annulus with normal anterior mitral valve leaflet motion. Normal tricuspid valve and pulmonic valve. The proximal pulmonary artery branches also appear to be normal. 8. The inferior vena cava was mildly enlarged, central venous pressure is probably elevated. DOPPLER: It detects mild aortic regurgitation, mild mitral regurgitation, and mild tricuspid regurgitation. The calculated pulmonary artery systolic pressure varies between 30 to 40 mmHg. Abnormal relaxation pattern was noted across the mitral valve annulus consistent with a pseudo-normal pattern, left ventricular end-diastolic pressure is most likely elevated. IMPRESSION: 1. Normal global left ventricular systolic function with marked concentric left ventricular hypertrophy. There are features of left ventricular diastolic dysfunction, grade 2. 2. Aortic valve sclerosis with mild aortic regurgitation and trivial aortic stenosis. 3. Mildly enlarged left atrium with mitral annulus calcification and mild mitral regurgitation. 4. Mild tricuspid regurgitation with mild pulmonary hypertension. 5. Trace pericardial effusion was noted, no evidence of cardiac tamponade. 6. There are features of elevated central venous pressure. 7. The above findings were compared with the last echocardiogram on 06/21/2016, left ventricular systolic function is still normal. [facility]
--- NOTE | 2016-07-12 13:08 | IPN ---
DATE: 07/12/2016 Patient was seen earlier this morning. He was sitting in his bed, in no acute distress, but does complain of constipation. He states that he feels more shortness of breath this morning. He denies any chest pain, palpitations. He has no cough or hemoptysis. He has no nausea, vomiting, diarrhea, melena, or hematemesis. On physical examination, patient is alert and oriented, in no acute distress at rest. His last vital signs this morning revealed a blood pressure of 176/80 with a pulse of 83, respiration 20 and his maximum temperature is 97.4 degrees Fahrenheit with an oxygen saturation of 91% on 2 liters nasal cannula. He has negative fluid balance of 6655 mL from 07/11/2016. Examination of the head, ears, eyes, nose and throat: Atraumatic. Neck is supple, no jugular venous distention (JVD). The lungs revealed minimal crackles at the bases. The heart examination revealed normal S1 and S2 without gallops. The point of maximum impulse (PMI) is slightly displaced inferiorly. There is no rub. Abdomen is soft and nontender. Bowel sounds are active. Extremities revealed +1 bilateral pitting lower leg and ankle edema. Neurologic examination is negative for focal deficit. LABORATORY DATA: CBC done today revealed a WBC of 9.5, hemoglobin 10.8, hematocrit 32.7, and platelets 107,000. BMP done today revealed a sodium of 139, potassium 3.9, chloride 104, CO2 26, BUN 30, creatinine 1.33, GFR 56.9, glucose 210, calcium 8.1. Serum troponin is 0.40. IMPRESSION: 1. Status post decompensated congestive heart failure, acute on chronic secondary to left ventricular diastolic dysfunction. 2. Status post exacerbated hypertension. 3. Status post exacerbation of chronic obstructive pulmonary disease (COPD). 4. Chronic kidney disease. 5. Hypertension, and this has improved and today, both the carvedilol and the spironolactone were increased. 6. Hyperlipidemia, on a statin. 7. Diabetes mellitus, and this is being addressed. 8. Obesity. 9. Probably sleep apnea. Mr. Maurilio McmullenJr seems to be stable on current medications. He appears to be more short of breath this morning that may be related to his constipation. He is being treated and he is waiting for the bronchodilators. In the meantime, will restart his diuretic with furosemide daily. He will continue with the spironolactone. His beta-franklyn was increased this morning and I agree. I will monitor him along with you. Will keep him in a negative fluid balance but will need to monitor closely his BUN and creatinine and serum potassium. On discharge, the plan will be to proceed with further cardiac evaluation, a nuclear stress test and this was discussed with him earlier today. It was pleasure to participate in the care of Mr. Maurilio Brisa Mcmullen Jr for his underlying cardiac condition. I will continue to monitor him along with you. The case will be discussed with his hospitalist. DEIDRE
[2016-07-12] MEDS: predniSONE 10 MG TAB PO SCH (21:34)
[2016-07-12] MEDS: LEVEMIR (INSULIN DETEMIR) 1 UNITS/0.01ML SC SCH (21:37)
[2016-07-12] MEDS: cloNIDine HCL 0.3 MG/24 HR PATCH TOP SCH (21:37)
[2016-07-13 04:00] VITALS: BP 142/69
[2016-07-13] MEDS: IPRATROPIUM 0.5MG/ALBUTEROL 2.5MG INH SOL UD 3ML (DUONEB)(J7620) NEB SCH ×6 (04:40→23:14)
[2016-07-13 06:26] LABS: MEAN CORPUSCULAR HEMOGLOBIN 28.6 pg (27.0-33.0); MEAN CORPUSCULAR VOLUME 86.7 fl (80.0-96.0); RED CELL DISTRIBUTION WIDTH 12.3 % (11.5-14.5); WHITE BLOOD COUNT 6.1 K/mm3 (4.0-10.0)
[2016-07-13 06:40] LABS: CREATININE FOR GFR 1.35 MG/DL (0.70-1.30); POTASSIUM SERUM 4.1 MEQ/L (3.5-5.1)
[2016-07-13 07:30] VITALS: BP 136/64
[2016-07-13] MEDS: HumaLOG INSULIN (NovoLOG) PER UNIT SC SCH ×4 (07:58→20:45)
[2016-07-13] MEDS: ADVAIR DISKUS 500/50 INH PWD INH SCH ×2 (08:00→19:49)
[2016-07-13] MEDS: TIOTROPIUM INHALER/CAPSULE (SPIRIVA) INH SCH (08:00)
[2016-07-13] MEDS: DOXYCYCLINE HYCLATE 100 MG in D5W MINI-BAG PLUS 100 ML IV SCH ×2 (08:42→21:12)
[2016-07-13] MEDS: ATORVASTATIN 20 MG TAB PO SCH (08:42)
[2016-07-13] MEDS: ISOSORBIDE DIN. (ISORDIL) 20 MG TAB PO SCH ×3 (08:43→21:12)
[2016-07-13] MEDS: CARVedilol 12.5 MG TAB PO SCH ×2 (08:43→21:11)
[2016-07-13] MEDS: amLODIPine 10 MG TAB PO SCH (08:43)
[2016-07-13] MEDS: ASPIRIN 81 MG CHEW TABLET PO SCH (08:43)
[2016-07-13] MEDS: PANTOPRAZOLE 40MG TAB (PROTONIX) PO SCH (08:43)
[2016-07-13] MEDS: DOCUSATE SODIUM 100 MG CAP PO SCH ×2 (08:44→21:07)
[2016-07-13] MEDS: MIRALAX *UNIT DOSE* 17GM PACKET PO SCH ×2 (08:44→21:07)
[2016-07-13] MEDS: **hydrALAZINE** 50 MG TAB PO SCH ×3 (08:44→21:12)
[2016-07-13] MEDS ORDERED: cloNIDine HCL 0.2 MG/24 HR PATCH TD SCH (09:00)
[2016-07-13] MEDS: SPIRONOLACTONE 25 MG TAB PO SCH (11:49)
[2016-07-13] MEDS: FUROSEMIDE 20 MG/2 ML VIAL (J1940) IV SCH (11:50)
[2016-07-13 12:00] VITALS: BP 137/65
--- NOTE | 2016-07-13 13:51 | IPN ---
DATE: 07/13/2016 Mr. Maurilio Mcmullen was seen earlier this morning. He was supine in bed in no acute distress at rest. He stated that he feels much better. His shortness of breath and his cough have improved significantly. He has no orthopnea or palpitations. Yesterday, his medications were increased and he was restarted on the diuretics, on the furosemide. He denies any bleeding. He has no nausea, vomiting, diarrhea, melena, or hematuresis. PHYSICAL EXAMINATION: GENERAL: On physical examination, the patient is alert and oriented, in no acute distress at rest. VITAL SIGNS: Today reveal a blood pressure of 135/64 with a pulse of 72, respiratory rate 18-20, and his maximum temperature is 99.3 degrees Fahrenheit with an oxygen saturation of 94% on two liters nasal cannula. HEAD, EARS, EYES, NOSE, AND THROAT: Atraumatic. NECK: Supple. No jugular venous distention (JVD) or carotid bruits. LUNGS: Clear with very minimal crackles noted at the bases. HEART: Normal S1, S2 without gallops. The point of maximal impulse (PMI) is not displaced. There is no rub. I could not appreciate any murmurs. ABDOMEN: Soft and nontender. Bowel sounds are active. EXTREMITIES: Reveal +1 bilateral lower leg edema. NEUROLOGIC: Grossly is negative for focal deficit. LABORATORY DATA: CBC done today revealed a WBC of 6.1, hemoglobin 10.3, hematocrit 31.2, and platelets 110,000. BMP done today revealed a sodium of 141, potassium 4.1, chloride 104, CO2 27, BUN 28, creatinine 1.35, GFR 56.0, fasting glucose 174, and calcium 8.1. Serum cortisol is pending as well as plasma metanephrine and normetanephrine. Mr. Maurilio Mcmullen seems to be stable from a cardiac point of view. His blood pressure is now under control and his respiratory pulmonary status has improved significantly. His medications were reviewed and I will continue the same for now. We will need to monitor closely his blood urea nitrogen (BUN), creatinine, and serum potassium. He appears to be doing well on the current medications. Once again, upon discharge, I will continue to follow him as an outpatient at the office and he will need further cardiac workup.
--- NOTE | 2016-07-13 14:28 | IPNPDOC ---
Text Note Date of Service The patient was seen on 07/13/16 at 14:23. NOTE Subjective: Patient states his SOB is much improved. He is comfortable laying flat in bed. Pt denies any chest pain/palpitations. Objective: Vitals: (see below) General: No acute distress, laying comfortably in bed. HEENT: Moist mucous membranes. Neck: No JVD or lymphadenopathy Cardiac: RRR, No murmurs Pulm: Coarse crackles and diminished breath sounds at the bases b/l. No wheezing , Abd: NT/ND + BS obese Ext: 1+ L>R edema. No cyanosis Labs (see below) Images: CXR 06/29/16 Impression: Cardiomegaly with some improvement in the vascular congestion in the upper lung zones, but without bilateral effusions and basilar atelectatic changes, left greater than right. Renal u/s 06/23/16 IMPRESSION: 1. No evidence to suggest renal artery stenosis. 2. Increased renal cortical echogenicity consistent with medical renal disease. Echocardiogram 06/20/16 CONCLUSIONS: 1. Study is of acceptable technical quality. 2. Normal left ventricle (LV) size with severe left ventricular hypertrophy and preserved LV systolic function. Grade 1 diastolic dysfunction. Likely very high left ventricular end-diastolic pressure. 3. No significant valvular disease. 4. Normal RV size and systolic function. 5. High central venous pressure. 6. Unable to accurately estimate pulmonary artery pressure. COMMENT: Study is consistent with severe hypertensive heart disease and diastolic CHF. Assessment/Plan 1. Status post acute decompensated diastolic heart failure- diuresed very well. Currently asymptomatic. Cardiology input appreciated. Troponins are trending down, likely secondary to his decompensated heart failure. Cont lasix and spironolactone. 2. Status post acute hypoxic and hypercapnic respiratory requiring mechanical ventilation. Extubated 06/28/16. Continue nebs, increase to q4h, and steroids. Respiratory status is much improved. 3. Hypertensive; has notable LVH and left bundle-branch block. BP controlled. On Beta franklyn. TIFFANIE inhibitor and Lasix initially held given acute renal failure. On clonidine patch (dose increase), hydralazine, Coreg. Will ultimately need workup for resistant HTN. Metanephrines sent. On spironolactone now so will hold off workup for primary hyperparathyroidism. Renal u/s negative for GURWINDER on 06/23/16. Will need outpt sleep study as likely has GETACHEW. 4. Nonoliguric acute renal failure- much improved. Renal ultrasound (see above) . avoid nephrotoxins. Strict I/O. Appreciate nephrology input 5. Diabetes mellitus- Cont Levemir, SSI. 6. GERD- on PPI DVT prophylaxis- heparin subcutaneous F/u with Dr. Rowley outpt. VS,Fishbone, I+O VS, Fishbone, I+O Laboratory Tests 07/13/16 05:55 Calcium Level 8.0 L, Red Blood Count 3.60 L, Mean Corpuscular Volume 86.7, Mean Corpuscular Hemoglobin 28.6, Mean Corpuscular Hemoglobin Concent 33.0, Red Cell Distribution Width 12.3 Vital Signs Date Time Temp Pulse Resp B/P Pulse Ox O2 Delivery O2 Flow Rate FiO2 07/13/16 08:44 136/64 07/13/16 08:43 72 07/13/16 08:01 Nasal Cannula 2.0 07/13/16 07:30 96.4 20 94 07/10/16 08:00 30 I&O- Last 24 Hours up to 6 AM 07/13/16 06:00 Intake Total 1840 ml Output Total 2050 ml Balance -210 ml JANNETTE ANDERSEN MD Jul 13, 2016 14:28
[2016-07-13 16:00] VITALS: BP 135/80
[2016-07-13 20:00] VITALS: BP 111/53
[2016-07-13] MEDS: predniSONE 10 MG TAB PO SCH (21:07)
[2016-07-13] MEDS: LEVEMIR (INSULIN DETEMIR) 1 UNITS/0.01ML SC SCH (21:12)
[2016-07-13 21:13] VITALS: BP 138/70
[2016-07-14] VITALS (7 sets, daily range): BP systolic 111–148; BP diastolic 61–76
[2016-07-14] MEDS: IPRATROPIUM 0.5MG/ALBUTEROL 2.5MG INH SOL UD 3ML (DUONEB)(J7620) NEB SCH ×5 (03:09→20:00)
[2016-07-14 05:19] LABS: MEAN CORPUSCULAR HEMOGLOBIN 28.8 pg (27.0-33.0); MEAN CORPUSCULAR HGB CONC 32.7 g/dl (32.0-36.5); RED CELL DISTRIBUTION WIDTH 12.5 % (11.5-14.5); WHITE BLOOD COUNT 5.4 K/mm3 (4.0-10.0)
[2016-07-14 05:38] LABS: CALCIUM LEVEL 8.1 MG/DL (8.8-10.2); CREATININE FOR GFR 1.55 MG/DL (0.70-1.30); GLOMERULAR FILTRATION RATE 47.7 (>49); POTASSIUM SERUM 4.4 MEQ/L (3.5-5.1)
[2016-07-14] MEDS: TIOTROPIUM INHALER/CAPSULE (SPIRIVA) INH SCH (07:16)
[2016-07-14] MEDS: ADVAIR DISKUS 500/50 INH PWD INH SCH ×2 (07:16→20:24)
[2016-07-14] MEDS: HumaLOG INSULIN (NovoLOG) PER UNIT SC SCH ×4 (08:21→21:28)
[2016-07-14] MEDS: DOXYCYCLINE HYCLATE 100 MG in D5W MINI-BAG PLUS 100 ML IV SCH (10:40)
[2016-07-14] MEDS: ATORVASTATIN 20 MG TAB PO SCH (10:46)
[2016-07-14] MEDS: amLODIPine 10 MG TAB PO SCH (10:46)
[2016-07-14] MEDS: CARVedilol 12.5 MG TAB PO SCH ×2 (10:46→21:28)
[2016-07-14] MEDS: DOCUSATE SODIUM 100 MG CAP PO SCH ×2 (10:46→21:29)
[2016-07-14 10:47] LABS: CORTISOL AM 10.9 UG/DL (4.3-22.4)
[2016-07-14] MEDS: ISOSORBIDE DIN. (ISORDIL) 20 MG TAB PO SCH ×3 (10:48→21:29)
[2016-07-14] MEDS: PANTOPRAZOLE 40MG TAB (PROTONIX) PO SCH (10:49)
[2016-07-14] MEDS: ASPIRIN 81 MG CHEW TABLET PO SCH (10:49)
[2016-07-14] MEDS: **hydrALAZINE** 50 MG TAB PO SCH ×3 (10:49→21:29)
[2016-07-14] MEDS: MIRALAX *UNIT DOSE* 17GM PACKET PO SCH ×2 (10:55→21:00)
--- NOTE | 2016-07-14 12:05 | REP ---
Clinical: Congestion. Comparison: 07/10/2016. Findings: Central perihilar opacities are appreciated with indistinct pulmonary vasculature as well as moderate left lower lobe opacity. Findings suggest CHF with left lower lobe consolidation and effusion. Differential diagnosis would include multifocal pneumonia. No pneumothorax. Skeletal structures intact. Impression: Perihilar and left lower lobe opacities as described above. Left pleural effusion. Differential diagnosis includes CHF/pulmonary vascular congestion as well as multifocal pneumonia. Signed by Higinio Strickland MD 07/14/2016 11:57 A
[2016-07-14] MEDS: FUROSEMIDE 20 MG/2 ML VIAL (J1940) IV SCH (12:24)
[2016-07-14] MEDS: SPIRONOLACTONE 25 MG TAB PO SCH (12:26)
[2016-07-14] MEDS: predniSONE 10 MG TAB PO SCH (12:29)
--- NOTE | 2016-07-14 14:32 | IPNPDOC ---
Text Note Date of Service The patient was seen on 07/14/16 at 14:29. NOTE Subjective: Patient states is more short of breath today and has been developing a cough which is nonproductive. Pt denies any chest pain/ palpitations. Objective: Vitals: (see below) General: No acute distress, laying comfortably in bed. HEENT: Moist mucous membranes. Neck: No JVD or lymphadenopathy Cardiac: RRR, No murmurs Pulm: Coarse crackles and diminished breath sounds at the bases b/l. No wheezing , Abd: NT/ND + BS obese Ext: 1+ L>R edema. No cyanosis Labs (see below) Images: CXR 06/29/16 Impression: Cardiomegaly with some improvement in the vascular congestion in the upper lung zones, but without bilateral effusions and basilar atelectatic changes, left greater than right. Renal u/s 06/23/16 IMPRESSION: 1. No evidence to suggest renal artery stenosis. 2. Increased renal cortical echogenicity consistent with medical renal disease. Echocardiogram 06/20/16 CONCLUSIONS: 1. Study is of acceptable technical quality. 2. Normal left ventricle (LV) size with severe left ventricular hypertrophy and preserved LV systolic function. Grade 1 diastolic dysfunction. Likely very high left ventricular end-diastolic pressure. 3. No significant valvular disease. 4. Normal RV size and systolic function. 5. High central venous pressure. 6. Unable to accurately estimate pulmonary artery pressure. COMMENT: Study is consistent with severe hypertensive heart disease and diastolic CHF. CXR 07/14/16 Impression: Perihilar and left lower lobe opacities as described above. Left pleural effusion. Differential diagnosis includes CHF/pulmonary vascular congestion as well as multifocal pneumonia. Assessment/Plan 1. Persistent Dyspnea, with left lower lobe opacity. We'll obtain CT without contrast to rule out multifocal pneumonia. If +, will need treatment for HCAP 2. Status post acute decompensated diastolic heart failure- diuresed very well. Currently asymptomatic. Cardiology input appreciated. Troponins are trending down, likely secondary to his decompensated heart failure. Cont lasix and spironolactone. 3. Status post acute hypoxic and hypercapnic respiratory requiring mechanical ventilation. Extubated 06/28/16. Continue nebs, increase to q4h, and steroids. Respiratory status is much improved. 4. Hypertensive; has notable LVH and left bundle-branch block. BP controlled. On Beta franklyn. TIFFANIE inhibitor and Lasix initially held given acute renal failure. On clonidine patch (dose increase), hydralazine, Coreg. Will ultimately need workup for resistant HTN. Metanephrines sent. On spironolactone now so will hold off workup for primary hyperparathyroidism. Renal u/s negative for GURWINDER on 06/23/16. Will need outpt sleep study as likely has GETACHEW. 5. Nonoliguric acute renal failure- much improved. Renal ultrasound (see above) . avoid nephrotoxins. Strict I/O. Appreciate nephrology input 6. Diabetes mellitus- Cont Levemir, SSI. 7. GERD- on PPI DVT prophylaxis- heparin subcutaneous F/u with Dr. Rowley outpt. VS,Marquise, I+O VS, Marquise, I+O Laboratory Tests 07/14/16 04:52 Calcium Level 8.1 L, Red Blood Count 3.48 L, Mean Corpuscular Volume 88.0, Mean Corpuscular Hemoglobin 28.8, Mean Corpuscular Hemoglobin Concent 32.7, Red Cell Distribution Width 12.5 Vital Signs Date Time Temp Pulse Resp B/P Pulse Ox O2 Delivery O2 Flow Rate FiO2 07/14/16 12:00 95.4 80 20 148/76 96 Nasal Cannula 2.0 07/10/16 08:00 30 I&O- Last 24 Hours up to 6 AM 07/14/16 06:00 Intake Total 1920 ml Output Total 1700 ml Balance 220 ml JANNETTE ANDERSEN MD Jul 14, 2016 14:32
--- NOTE | 2016-07-14 15:14 | REP ---
Clinical: Chest pain and shortness of breath. Question pneumonia. Findings: Subtle diffuse bilateral alveolar infiltrates/opacities are identified along with bibasilar consolidation/atelectasis and pleural effusions (left greater than right). Mild reactive adenopathy noted in the mediastinum. Cardiomegaly is suggested with minimal atherosclerotic changes to the coronary arteries and no pericardial effusion. Impression: Patchy diffuse bilateral alveolar infiltrates (right greater than left) with bibasilar consolidation/atelectasis and pleural effusions (left greater than right). Differential diagnosis includes multifocal pneumonia. Signed by Higinio Strickland MD 07/14/2016 03:06 P
--- NOTE | 2016-07-14 18:47 | IPN ---
DATE: 07/13/2016 Mr. Maurilio Mcmullen was seen earlier this morning. He was sitting in bed in no acute distress and having lunch. His was at bedside. He stated that last evening, he developed more shortness of breath and he had a chest x-ray done today as well as a CAT scan of the chest that revealed bilateral pleural effusion, more on the left than the right and patchy bilateral alveolar infiltrates that may be due to multifocal pneumonia. He denies any nausea, vomiting, diarrhea, melena or hematemesis. He has no focal manifestation. He has no chest pain, no palpitations. There is no report of bleeding. PHYSICAL EXAMINATION: GENERAL: On physical examination, the patient is alert and oriented, in no acute distress at rest and his vital signs earlier today when I saw him reveal a blood pressure of 127/63 with a pulse of 17, respirations 18 to 20 and his maximum temperature was 96.7 degrees Fahrenheit with an oxygen saturation of 93% on two liters nasal cannula. Examination of the head is atraumatic. NECK: Supple. No jugular venous distention (JVD). LUNGS: Revealed decreased breath sounds at the left base and minimal crackles. No wheezing. HEART: Normal S1, S2 without gallops. The point of maximal impulse (PMI) is not displaced. There is no rub. I could not appreciate any murmurs. ABDOMEN: Soft and nontender. Obese. EXTREMITIES: Reveal +1 bilateral pitting lower leg edema. NEUROLOGIC: Negative for focal deficit. LABORATORY DATA: BMP done today 07/13/2016 revealed a sodium of 138, potassium 4.4, chloride 103, CO2 27, BUN 20, creatinine 1.55, glomerular filtration rate (GFR) 47.7. Fating glucose 210 and calcium 8.1. Serum culture level on 07/13/2016 was normal at 10.9. CBC done 07/14/2016 revealed a WBC of 5.4, hemoglobin 10.0, hematocrit 30.6 and platelet 107,000. Urine metanephrine pending. Telemetry revealed normal sinus rhythm. IMPRESSION: 1. Status post decompensated congestive heart failure, acute on chronic secondary to left ventricular diastolic dysfunction. 2. Probable bilateral pneumonia. 3. Status post exacerbated hypertension. 4. Diabetes mellitus. 5. Chronic kidney disease. 6. Chronic obstructive pulmonary disease. 7. Gastroesophageal reflux disease. 8. History of abnormal serum troponin. 9. Status post respiratory failure and recent hospitalization with respiratory failure earlier in the month of June of 2016. Mr. Maurilio Ledezma Jr Benedict seems to be stable from a cardiac point of view and his blood pressure is under control. His cardiac medications and his other medications were reviewed and i will continue the same for now. Lasix can be given as needed but we will need to monitor closely his BUN, creatinine and serum potassium. I will try to increase it for now to twice a day from 20 mg IV daily. His current shortness of breath seems to be related to underlying infiltrate/pneumonia but not to underlying heart failure. He may benefit from left thoracentesis not only for diagnosis purposes but for symptom relief. I will continue to monitor him along with you while in the hospital. Please do not hesitate to call with any questions. Upon discharge, I will see him as an outpatient, he will need further cardiac workup.
--- NOTE | 2016-07-14 20:27 | PHACANCOPD ---
PHARMACY VANCOMYCIN DOSING Pt Demographics Demographics Patient Age:66 , Weight:90.900 , Gender: male Adjusted Body Weight Date: 07/14/16, Adjusted Body Weight: [71.88] Kg Events Past 24 Hours Events Past 24 Hours: YES: Other (CT scan (+) bilateral infiltrates) Vancomycin Vancomycin indication: HCAP Vancomycin Target Ranges: 15-20 mcg/ml Vancomycin Load Y/N: Yes Load Dose Date Time Vancomycin Load Dose: 1500mg Date: 07/14/15 Time: 2000 Vancomycin Dose Date: 07/14/16. Current Vancomycin Dose: [1g IV Q18H] Intermittent Dosing?: No Labs Labs Item Value Date Time White Blood Count 5.4 K/mm3 07/14/16 0452 White Blood Count 6.1 K/mm3 07/13/16 0555 White Blood Count 9.4 K/mm3 07/12/16 0406 Creatinine 1.55 MG/DL H 07/14/16 0452 Creatinine 1.35 MG/DL H 07/13/16 0555 Micro Microbiology 07/09/16 Blood Culture - Preliminary, Resulted No Growth after 72 hours. All specime... 07/09/16 Blood Culture - Preliminary, Resulted No Growth after 72 hours. All specime... 07/12/16 MRSA Screen - Final, Complete 07/10/16 Gram Stain - Final, Complete 07/10/16 Sputum Culture - Final, Complete Staphylococcus Aureus 07/10/16 MRSA Screen - Final, Complete Creatinine Clearance Date:07/14/16. Creatinine Clearance: [38.2 ml/min]. Pending Labs Vancomycin trough scheduled prior to 3rd dose 07/16/15 @ 0800 Assessment and Plan Maintaining Current Dose?: Yes Reason for dose change: No Dose Change Pharmacist Note Pharmacist Note Date: 07/14/16. Pharmacist note: Day #1 vancomycin initiated with a 1500 mg loading dose followed by a maintenance regimen of 1g IV Q18H for the treatment of HCAP - aiming for a goal trough of 15-20 mcg/ml. WBC is WNL, patient is afebrile with persistent dyspnea, and CT scan from 07/14/15 shows bilateral infiltrates - suggestive of newly developed multifocal pneumonia. No PMH of MRSA or vanco use here at [facility]. Baseline scr ~ 1.32. Blood cultures resulted no growth, MRSA screen (-), and sputum (+) for MSSA sensitive to vanco MIKAYLA = 1. A trough has been scheduled 07/16/15 @0800, prior to the 3rd dose, given the patients PMH of NATALIE to ensure adequate monitoring. We will continue to monitor the patient and make adjustments as needed. CHANTELLE [facility]KLAND [facility] Jul 14, 2016 20:27
[2016-07-14] MEDS ORDERED: VANCOMYCIN HCL 500 MG in D5W MINI-BAG PLUS 100 ML IV ONE (21:00)
[2016-07-14] MEDS: LEVEMIR (INSULIN DETEMIR) 1 UNITS/0.01ML SC SCH (21:00)
[2016-07-14] MEDS: CEFEPIME HCL 2 GM in D5W MINI-BAG PLUS 50 ML IV SCH (21:30)
[2016-07-14] MEDS: VANCOMYCIN HCL 1,000 MG, VIAL MATE ADAPTER 1 EACH in D5W 250 ML IV SCH (22:31)
[2016-07-15] MEDS: FUROSEMIDE 20 MG/2 ML VIAL (J1940) IV SCH ×2 (00:04→12:56)
[2016-07-15] MEDS: IPRATROPIUM 0.5MG/ALBUTEROL 2.5MG INH SOL UD 3ML (DUONEB)(J7620) NEB SCH ×6 (00:25→18:38)
[2016-07-15 04:24] VITALS: BP 131/68
[2016-07-15 05:38] LABS: MEAN CORPUSCULAR HEMOGLOBIN 28.7 pg (27.0-33.0); MEAN CORPUSCULAR HGB CONC 32.9 g/dl (32.0-36.5); MEAN CORPUSCULAR VOLUME 87.3 fl (80.0-96.0); RED CELL DISTRIBUTION WIDTH 13.1 % (11.5-14.5); WHITE BLOOD COUNT 6.2 K/mm3 (4.0-10.0)
[2016-07-15 05:51] LABS: CALCIUM LEVEL 8.1 MG/DL (8.8-10.2); CREATININE FOR GFR 1.73 MG/DL (0.70-1.30); POTASSIUM SERUM 4.1 MEQ/L (3.5-5.1)
[2016-07-15] MEDS: CEFEPIME HCL 2 GM in D5W MINI-BAG PLUS 50 ML IV SCH ×2 (06:42→18:26)
[2016-07-15] MEDS: TIOTROPIUM INHALER/CAPSULE (SPIRIVA) INH SCH (07:31)
[2016-07-15] MEDS: ADVAIR DISKUS 500/50 INH PWD INH SCH ×2 (07:31→20:04)
[2016-07-15 08:00] VITALS: BP 105/58
--- NOTE | 2016-07-15 08:18 | IPN ---
DATE: 07/15/2016 Mr. Mcmullen tells me that he is feeling reasonably well. He still is short of breath with ambulation though denies any chest pain. There has been no nausea or vomiting, no headache. VITAL SIGNS: Blood pressure 131/68, heart rate is in 60s and 70s. He is afebrile. Saturation 94% on 2 liters of oxygen by nasal cannula. Fluid balance yesterday was documented about half a liter negative, weight is though 91.9, which is actually up from yesterday, but is not appreciably changed since admission. He is alert and oriented, appropriate. His JVP is still at least 2 or 3 cm above clavicle. Lungs are relatively clear to auscultation though I do not appreciate any wheezing or crackles. There are somewhat diminished sounds mostly over the left base, but not very prominently so. Heart exam reveals very muffled heart sounds. I do not appreciate any gallop, murmur, or rub. Abdomen is soft without tenderness or rebound tenderness. There is trace peripheral edema. Neurologically he is intact. He is very obese. Laboratory huston, basic metabolic panel potassium 4.1, BUN 38, creatinine 1.7. Calculated GFR is 42 and calcium is 8.1. His CBC hemoglobin 9.3, hematocrit 28.4 and platelet count 128,000. His MCV is 87. ASSESSMENT/PLAN: Mr. Mcmullen is a 66-year-old man who presented originally about a month ago with respiratory failure that eventually required intubation. It was felt to be related to acute diastolic congestive heart failure. He has echocardiographic evidence for severe hypertensive heart disease. His blood pressure has been rather challenging to control even though it looks to be well controlled on current medications. From a hemodynamic perspective, he appears reasonably well controlled, but unfortunately there has been worsening renal failure in the last few days. His creatinine got as low as 1.3 on July 12, but now continues to climb. I am not quite sure what is the etiology. I think it would be prudent to hold the diuretics today, at least until the creatinine stabilizes though. As far as the troponin elevation is concerned, which was the original reason why cardiology was called, I am not certain about the etiology. His peak was 1.0 on 07/10. It has been declining since. I do not believe that it is definitely an ischemic event as acutely exacerbated congestive heart failure certainly can lead to some troponin elevation. The patient previously declined cardiac catheterization. At this point, I think that we will have to resolve the issue with renal failure before further management issues as far as coronary artery disease are concerned can be addressed. Besides holding furosemide today, I will not make any medication adjustments.
[2016-07-15] MEDS: HumaLOG INSULIN (NovoLOG) PER UNIT SC SCH ×4 (08:55→21:20)
[2016-07-15] MEDS: predniSONE 10 MG TAB PO SCH (08:55)
[2016-07-15] MEDS: ATORVASTATIN 20 MG TAB PO SCH (08:56)
[2016-07-15] MEDS: ASPIRIN 81 MG CHEW TABLET PO SCH (08:56)
[2016-07-15] MEDS: DOCUSATE SODIUM 100 MG CAP PO SCH ×2 (08:56→21:20)
[2016-07-15] MEDS: ISOSORBIDE DIN. (ISORDIL) 20 MG TAB PO SCH ×3 (08:56→21:21)
[2016-07-15] MEDS: CARVedilol 12.5 MG TAB PO SCH ×2 (08:56→21:20)
[2016-07-15] MEDS: amLODIPine 10 MG TAB PO SCH (08:56)
[2016-07-15] MEDS: PANTOPRAZOLE 40MG TAB (PROTONIX) PO SCH (08:56)
[2016-07-15] MEDS: MIRALAX *UNIT DOSE* 17GM PACKET PO SCH ×2 (08:58→21:19)
[2016-07-15] MEDS: **hydrALAZINE** 50 MG TAB PO SCH ×3 (08:58→21:20)
[2016-07-15 12:00] VITALS: BP 121/63
[2016-07-15] MEDS: SPIRONOLACTONE 25 MG TAB PO SCH (12:56)
--- NOTE | 2016-07-15 14:03 | IPNPDOC ---
Text Note Date of Service The patient was seen on 07/15/16 at 13:44. NOTE Subjective: Patient is a 66 year male with a PMHx of HTN, COPD, who presented to the ER with complaints of shortness of breath. Patient was recently discharged for COPD exacerbation a few hours earlier. The previous admission he required intubation and stayed in the hospital for 3 weeks. Patient was admitted for diastolic CHF exacerbation. He has received Lasix, dosed daily based on clinical status. Patient was seen and examined at the bedside. He denies any problems overnight. Objective: Vitals (See below) General: Sitting up in bed, no acute distress, aaox3 HEENT: NC, AT CVS: RRR, +S1S2 Lungs: Fair air entry b/l, - w/r/r Abdomen: Soft, ND, NT, +BSx4 Extremities: +PPx4, Trace Edema, - Calf tenderness Assessment and Plan: 1. Acute hypercarbic respiratory failure - likely 2/2 diastolic CHF exacerbation and HCAP - CT chest with patchy diffuse bilateral alveolar infiltrates (R>L) with bibasilar consolidation/atelectasis and pleural effusions (L > R) - DDx multifocal PNA - Blood cultures negative; Sputum culture with Staph aureus - f/u sputum cultures, strep and legionella urine antigen - Has been started on antibiotics - Cefepime and Vancomycin (Day #2) 2. Decompensated diastolic heart failure with preserved EF - has noted improvement in his breathing - today dose not appear to have significant fluid overload - appears euvolemic - ECHO 06/2016 - Diastolic dysfunction, EF preserved - CXR with Differential diagnosis includes CHF/pulmonary vascular congestion as well as multifocal pneumonia - has received lasix dosed on a daily basis - strict ins / outs, daily weights, keep head of bed elevated - cumulative output of -1.6 Liters since admission - will monitor for now 3. Elevated troponin - likely 2/2 demand ischemia 2/2 diastolic CHF exacerbation - no complaints of chest pain - troponin levels have trended down 4. NATALIE on CKD3 - will dose lasix based on clinical status 5. HTN - BP controlled - c/w home medications with holding parameters 6. IDDM2 - c/w insulin sliding scale and Levemir 7. GERD - c/w PPI 8. DVT prophylaxis - c/w heparin VS,Fishbone, I+O VS, Fishbone, I+O Laboratory Tests 07/15/16 05:13 Calcium Level 8.1 L, Red Blood Count 3.25 L, Mean Corpuscular Volume 87.3, Mean Corpuscular Hemoglobin 28.7, Mean Corpuscular Hemoglobin Concent 32.9, Red Cell Distribution Width 13.1 Vital Signs Date Time Temp Pulse Resp B/P Pulse Ox O2 Delivery O2 Flow Rate FiO2 07/15/16 11:36 Nasal Cannula 2.0 07/15/16 08:56 62 105/58 07/15/16 08:00 96.2 20 96 07/10/16 08:00 30 I&O- Last 24 Hours up to 6 AM 07/15/16 05:59 Intake Total 2870 ml Output Total 2900 ml Balance -30 ml ALEJANDRA VERDUZCO MD Jul 15, 2016 14:03
[2016-07-15] MEDS: VANCOMYCIN HCL 1,000 MG, VIAL MATE ADAPTER 1 EACH in D5W 250 ML IV SCH (14:55)
[2016-07-15 16:00] VITALS: BP 125/67
[2016-07-15] MEDS ORDERED: IPRATROPIUM 0.5MG/ALBUTEROL 2.5MG INH SOL UD 3ML (DUONEB)(J7620) NEB PRN (18:30)
[2016-07-15 19:52] VITALS: BP 133/69
[2016-07-15] MEDS: LEVEMIR (INSULIN DETEMIR) 1 UNITS/0.01ML SC SCH (21:19)
[2016-07-15 23:33] VITALS: BP 135/67
[2016-07-16] MEDS: FUROSEMIDE 20 MG/2 ML VIAL (J1940) IV SCH ×2 (00:08→12:13)
[2016-07-16] MEDS: IPRATROPIUM 0.5MG/ALBUTEROL 2.5MG INH SOL UD 3ML (DUONEB)(J7620) NEB SCH ×7 (00:27→23:35)
[2016-07-16] MEDS ORDERED: SLF 3 ML SYR IV PRN (01:30)
[2016-07-16 03:56] VITALS: BP 124/67
[2016-07-16] MEDS: CEFEPIME HCL 2 GM in D5W MINI-BAG PLUS 50 ML IV SCH ×2 (06:36→18:22)
[2016-07-16] MEDS: SLF 3 ML SYR IV SCH ×3 (06:36→21:32)
[2016-07-16 07:28] LABS: MEAN CORPUSCULAR HEMOGLOBIN 28.9 pg (27.0-33.0); MEAN CORPUSCULAR HGB CONC 33.7 g/dl (32.0-36.5); MEAN CORPUSCULAR VOLUME 85.8 fl (80.0-96.0); RED CELL DISTRIBUTION WIDTH 12.2 % (11.5-14.5); WHITE BLOOD COUNT 5.6 K/mm3 (4.0-10.0)
[2016-07-16] MEDS: TIOTROPIUM INHALER/CAPSULE (SPIRIVA) INH SCH (07:28)
[2016-07-16] MEDS: ADVAIR DISKUS 500/50 INH PWD INH SCH ×2 (07:28→20:11)
[2016-07-16 07:30] VITALS: BP 106/55
[2016-07-16 07:55] LABS: CREATININE FOR GFR 1.89 MG/DL (0.70-1.30); GLOMERULAR FILTRATION RATE 37.9 (>49); POTASSIUM SERUM 4.2 MEQ/L (3.5-5.1)
[2016-07-16] MEDS: HumaLOG INSULIN (NovoLOG) PER UNIT SC SCH ×4 (08:46→21:30)
[2016-07-16] MEDS: amLODIPine 10 MG TAB PO SCH (08:47)
[2016-07-16] MEDS: **hydrALAZINE** 50 MG TAB PO SCH ×3 (08:47→21:31)
[2016-07-16] MEDS: ATORVASTATIN 20 MG TAB PO SCH (08:47)
[2016-07-16] MEDS: DOCUSATE SODIUM 100 MG CAP PO SCH ×2 (08:47→21:31)
[2016-07-16] MEDS: predniSONE 10 MG TAB PO SCH (08:47)
[2016-07-16] MEDS: VANCOMYCIN HCL 1,000 MG, VIAL MATE ADAPTER 1 EACH in D5W 250 ML IV SCH (08:47)
[2016-07-16] MEDS: PANTOPRAZOLE 40MG TAB (PROTONIX) PO SCH (08:48)
[2016-07-16] MEDS: ASPIRIN 81 MG CHEW TABLET PO SCH (08:48)
[2016-07-16] MEDS: CARVedilol 12.5 MG TAB PO SCH ×2 (08:48→21:31)
[2016-07-16] MEDS: ISOSORBIDE DIN. (ISORDIL) 20 MG TAB PO SCH ×3 (08:48→21:30)
[2016-07-16] MEDS: MIRALAX *UNIT DOSE* 17GM PACKET PO SCH ×2 (09:00→21:29)
[2016-07-16 12:00] VITALS: BP 125/68
[2016-07-16] MEDS: SPIRONOLACTONE 25 MG TAB PO SCH (12:13)
--- NOTE | 2016-07-16 12:39 | IPNPDOC ---
Text Note Date of Service The patient was seen on 07/16/16 at 12:32. NOTE Subjective: Patient is a 66 year male with a PMHx of HTN, COPD, who presented to the ER with complaints of shortness of breath. Patient was recently discharged for COPD exacerbation a few hours earlier. The previous admission he required intubation and stayed in the hospital for 3 weeks. Patient was admitted for diastolic CHF exacerbation. He has received Lasix, dosed daily based on clinical status. Patient was seen and examined at the bedside. Again he denies any problems overnight. Objective: Vitals (See below) General: Sitting up in bed, no acute distress, aaox3 HEENT: NC, AT CVS: RRR, +S1S2 Lungs: Fair air entry b/l, - w/r/r Abdomen: Soft, ND, NT, +BSx4 Extremities: +PPx4, Trace Edema, - Calf tenderness Assessment and Plan: 1. Acute hypercarbic respiratory failure - likely 2/2 diastolic CHF exacerbation and HCAP - CT chest with patchy diffuse bilateral alveolar infiltrates (R>L) with bibasilar consolidation/atelectasis and pleural effusions (L > R) - DDx multifocal PNA - Blood cultures negative; Sputum culture with Staph aureus - f/u sputum cultures, strep and legionella urine antigen - Has been started on antibiotics - Cefepime and Vancomycin (Day #3) 2. Decompensated diastolic heart failure with preserved EF - no labored breathing, appears euvolemic - ECHO 06/2016 - Diastolic dysfunction, EF preserved - CXR with DDx includes CHF/pulmonary vascular congestion as well as multifocal pneumonia - has received lasix dosed on a daily basis intially; however no lasix yesterday or today - strict ins / outs, daily weights, keep head of bed elevated - cumulative output of -2.5 Liters since admission - will monitor for now 3. Elevated troponin - likely 2/2 demand ischemia 2/2 diastolic CHF exacerbation - no complaints of chest pain - troponin levels have trended down 4. NATALIE on CKD3 - will dose lasix based on clinical status - Cr elevated; will hold lasix at this time - will follow renal function 5. HTN - BP controlled - c/w home medications with holding parameters 6. IDDM2 - c/w insulin sliding scale and Levemir 7. GERD - c/w PPI 8. DVT prophylaxis - c/w heparin VS,Fishbone, I+O VS, Fishbone, I+O Laboratory Tests 07/16/16 07:16 Calcium Level 8.0 L, Red Blood Count 3.27 L, Mean Corpuscular Volume 85.8, Mean Corpuscular Hemoglobin 28.9, Mean Corpuscular Hemoglobin Concent 33.7, Red Cell Distribution Width 12.2 Vital Signs Date Time Temp Pulse Resp B/P Pulse Ox O2 Delivery O2 Flow Rate FiO2 07/16/16 12:21 Nasal Cannula 2.0 07/16/16 08:48 69 106/55 07/16/16 07:30 95.5 20 94 07/10/16 08:00 30 I&O- Last 24 Hours up to 6 AM 07/16/16 06:00 Intake Total 1760 ml Output Total 1975 ml Balance -215 ml ALEJANDRA VERDUZCO MD Jul 16, 2016 12:39
[2016-07-16 16:50] VITALS: BP 136/61
[2016-07-16] MEDS: LEVEMIR (INSULIN DETEMIR) 1 UNITS/0.01ML SC SCH (21:29)
[2016-07-16 22:00] VITALS: BP 149/68
[2016-07-17] MEDS: FUROSEMIDE 20 MG/2 ML VIAL (J1940) IV SCH (00:20)
[2016-07-17] MEDS: VANCOMYCIN HCL 1,000 MG, VIAL MATE ADAPTER 1 EACH in D5W 250 ML IV SCH ×2 (01:07→22:35)
[2016-07-17] MEDS: IPRATROPIUM 0.5MG/ALBUTEROL 2.5MG INH SOL UD 3ML (DUONEB)(J7620) NEB SCH ×5 (03:28→20:00)
[2016-07-17] MEDS: CEFEPIME HCL 2 GM in D5W MINI-BAG PLUS 50 ML IV SCH ×2 (06:17→18:23)
[2016-07-17] MEDS: SLF 3 ML SYR IV SCH ×3 (06:17→22:00)
[2016-07-17 07:06] LABS: MEAN CORPUSCULAR HEMOGLOBIN 28.6 pg (27.0-33.0); MEAN CORPUSCULAR HGB CONC 32.6 g/dl (32.0-36.5); MEAN CORPUSCULAR VOLUME 87.6 fl (80.0-96.0); RED CELL DISTRIBUTION WIDTH 12.2 % (11.5-14.5); WHITE BLOOD COUNT 6.7 K/mm3 (4.0-10.0)
[2016-07-17 07:29] LABS: CALCIUM LEVEL 8.2 MG/DL (8.8-10.2); CREATININE FOR GFR 1.99 MG/DL (0.70-1.30); GLOMERULAR FILTRATION RATE 35.8 (>49); POTASSIUM SERUM 4.6 MEQ/L (3.5-5.1)
[2016-07-17] MEDS: ADVAIR DISKUS 500/50 INH PWD INH SCH ×2 (07:45→20:28)
[2016-07-17] MEDS: TIOTROPIUM INHALER/CAPSULE (SPIRIVA) INH SCH (07:45)
[2016-07-17] MEDS: MIRALAX *UNIT DOSE* 17GM PACKET PO SCH ×2 (08:15→22:35)
[2016-07-17] MEDS: amLODIPine 10 MG TAB PO SCH (08:15)
[2016-07-17] MEDS: HumaLOG INSULIN (NovoLOG) PER UNIT SC SCH ×4 (08:17→22:35)
[2016-07-17] MEDS: DOCUSATE SODIUM 100 MG CAP PO SCH ×2 (08:19→22:34)
[2016-07-17] MEDS: PANTOPRAZOLE 40MG TAB (PROTONIX) PO SCH (08:19)
[2016-07-17] MEDS: ASPIRIN 81 MG CHEW TABLET PO SCH (08:19)
[2016-07-17] MEDS: ISOSORBIDE DIN. (ISORDIL) 20 MG TAB PO SCH ×3 (08:20→22:36)
[2016-07-17] MEDS: ATORVASTATIN 20 MG TAB PO SCH (08:20)
[2016-07-17] MEDS: **hydrALAZINE** 50 MG TAB PO SCH ×3 (08:21→22:34)
[2016-07-17] MEDS: predniSONE 10 MG TAB PO SCH (08:22)
[2016-07-17] MEDS: CARVedilol 12.5 MG TAB PO SCH ×2 (08:23→22:34)
--- NOTE | 2016-07-17 11:45 | IPNPDOC ---
Text Note Date of Service The patient was seen on 07/17/16 at 11:42. NOTE Subjective: Patient is a 66 year male with a PMHx of HTN, COPD, who presented to the ER with complaints of shortness of breath. Patient was recently discharged for COPD exacerbation a few hours earlier. The previous admission he required intubation and stayed in the hospital for 3 weeks. Patient was admitted for diastolic CHF exacerbation. He has received Lasix, dosed daily based on clinical status. Patient was seen and examined at the bedside. He notes that he does not have any chest pain, shortness of breath. He does not some increased leg swelling today. Objective: Vitals (See below) General: Sitting up in bed, no acute distress, aaox3 HEENT: NC, AT CVS: RRR, +S1S2 Lungs: Fair air entry b/l, - w/r/r Abdomen: Soft, ND, NT, +BSx4 Extremities: +PPx4, 1+ pitting edema, - Calf tenderness Assessment and Plan: 1. Acute hypercarbic respiratory failure - likely 2/2 diastolic CHF exacerbation and HCAP - CT chest with patchy diffuse bilateral alveolar infiltrates (R>L) with bibasilar consolidation/atelectasis and pleural effusions (L > R) - DDx multifocal PNA - Blood cultures negative; Sputum culture with Staph aureus - f/u sputum cultures, strep and legionella urine antigen - Has been started on antibiotics - Cefepime and Vancomycin (Day #4) 2. Decompensated diastolic heart failure with preserved EF - no labored breathing, mild pitting edema - ECHO 06/2016 - Diastolic dysfunction, EF preserved - CXR with DDx includes CHF/pulmonary vascular congestion as well as multifocal pneumonia - has received lasix dosed on a daily basis initially; however for last 2 days and today - strict ins / outs, daily weights, keep head of bed elevated - cumulative output of -2.5 Liters since admission - will monitor for now - Dr. Church (Cardiology) following - appreciate their input 3. Elevated troponin - likely 2/2 demand ischemia 2/2 diastolic CHF exacerbation - no complaints of chest pain - troponin levels have trended down 4. 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 HTN - BP controlled - c/w home medications with holding parameters 6. IDDM2 - c/w insulin sliding scale and Levemir 7. GERD - c/w PPI 8. DVT prophylaxis - c/w heparin VS,Fishbone, I+O VS, Fishbone, I+O Laboratory Tests 07/17/16 06:33 Calcium Level 8.2 L, Red Blood Count 3.59 L, Mean Corpuscular Volume 87.6, Mean Corpuscular Hemoglobin 28.6, Mean Corpuscular Hemoglobin Concent 32.6, Red Cell Distribution Width 12.2 Vital Signs Date Time Temp Pulse Resp B/P Pulse Ox O2 Delivery O2 Flow Rate FiO2 07/17/16 09:00 Nasal Cannula 1.0 07/17/16 08:23 142/70 07/17/16 08:15 67 07/16/16 22:00 98.1 18 94 I&O- Last 24 Hours up to 6 AM 07/17/16 05:59 Intake Total 3590 ml Output Total 2430 ml Balance 1160 ml ALEJANDRA VERDUZCO MD Jul 17, 2016 11:45
[2016-07-17] MEDS: SPIRONOLACTONE 25 MG TAB PO SCH (12:07)
[2016-07-17 14:00] VITALS: BP 116/58
--- NOTE | 2016-07-17 14:20 | REP ---
RENAL AND BLADDER ULTRASOUND: Real-time sonographic evaluation of the kidneys performed and demonstrates both kidneys to be normal in size and echotexture, right kidney measuring 13.5 x 6.2 x 6.6 cm and the left kidney 13.5 x 4.4 x 6.5 cm. There is no hydronephrosis and no evidence of nephrolithiasis. A cyst in the upper pole of the right kidney measures 1.6 x 1.9 x 1.8 cm and a cyst in the upper pole of the left kidney measures 1.6 x 1.2 x 1.5 cm. The urinary bladder is mildly distended and grossly unremarkable. IMPRESSION: No hydronephrosis. Signed by Moiz Madrigal MD 07/17/2016 03:23 P
--- NOTE | 2016-07-17 20:53 | IPN ---
DATE: OF VISIT: 07/17/2016 Mr. Mcmullen tells me that he is feeling much better. He does not have any dyspnea with his fairly minimal activity around the bed and in the room. He slept well. He denies any chest pain or palpitations. VITAL SIGNS: Blood pressure 149/68, heart rate is in 60s bowel, occasionally dipping into 50s. He is afebrile. Saturation 94% on 2 liters of oxygen by nasal cannula. Fluid balance yesterday was documented approximately equal, but yet his weight is documented as 98.6 kg which certainly does not correspond to the weight from yesterday. GENERAL: He is alert, oriented and appropriate. NECK: His JVP does not look high. LUNGS: Relatively clear to auscultation but for some diminished breath sounds over the bases. Air movement seems improved. HEART: Regular rhythm. No gallop or rub is noted. Somewhat muffled heart sound due to his large size. ABDOMEN: Abdomen is protuberant but I do not appreciate any shifting dullness. There is about 1 to 2 plus edema to about half of his shins. LABORATORY DATA: CBC with hemoglobin 10.3, hematocrit 31, platelet count 178,000, WBC count 6.7 and basic metabolic panel reveals potassium 4.6, BUN 46, creatinine 2, GFR 36 and glucose 185 yesterday. Yesterday his vancomycin trough was 16. ASSESSMENT/PLAN: Mr. Mcmullen is a 66-year-old man who has hypertensive heart disease and congestive heart failure. He was previously untreated until recently. Currently, his blood pressure is much better even though not perfect. I am going to discontinue his intravenous (IV) Lasix which I thought was discontinued already the day before yesterday. Even though he does have peripheral edema I do not believe he is volume overloaded. I think it is likely a side effect of amlodipine. As far as congestive heart failure is concerned, I think that it is reasonably well compensated. I would plan to reintroduce diuretics once his renal function improves. As far as the etiology of renal dysfunction is concerned, I am not certain what is behind this. I think it is less likely to be prerenal in nature. Possibly related to vancomycin and I would consider discontinuation of the medication. I will continue following the patient with you.
[2016-07-17 22:00] VITALS: BP 161/85
[2016-07-17] MEDS: LEVEMIR (INSULIN DETEMIR) 1 UNITS/0.01ML SC SCH (22:35)
[2016-07-18] MEDS: IPRATROPIUM 0.5MG/ALBUTEROL 2.5MG INH SOL UD 3ML (DUONEB)(J7620) NEB SCH ×7 (01:08→22:17)
[2016-07-18] MEDS: SLF 3 ML SYR IV SCH ×3 (05:55→22:00)
[2016-07-18 05:57] LABS: MEAN CORPUSCULAR HEMOGLOBIN 29.1 pg (27.0-33.0); MEAN CORPUSCULAR HGB CONC 33.8 g/dl (32.0-36.5); MEAN CORPUSCULAR VOLUME 86.1 fl (80.0-96.0); RED CELL DISTRIBUTION WIDTH 13.2 % (11.5-14.5); WHITE BLOOD COUNT 6.1 K/mm3 (4.0-10.0)
[2016-07-18 06:00] VITALS: BP 154/72
[2016-07-18 06:10] LABS: CALCIUM LEVEL 8.4 MG/DL (8.8-10.2); CREATININE FOR GFR 1.76 MG/DL (0.70-1.30); GLOMERULAR FILTRATION RATE 41.2 (>49); POTASSIUM SERUM 4.1 MEQ/L (3.5-5.1)
[2016-07-18] MEDS: CEFEPIME HCL 2 GM in D5W MINI-BAG PLUS 50 ML IV SCH (06:14)
[2016-07-18] MEDS: ADVAIR DISKUS 500/50 INH PWD INH SCH ×2 (07:50→20:01)
[2016-07-18] MEDS: TIOTROPIUM INHALER/CAPSULE (SPIRIVA) INH SCH (07:50)
[2016-07-18] MEDS: predniSONE 10 MG TAB PO SCH (08:51)
[2016-07-18] MEDS: **hydrALAZINE** 50 MG TAB PO SCH ×3 (08:51→22:02)
[2016-07-18] MEDS: MIRALAX *UNIT DOSE* 17GM PACKET PO SCH ×2 (08:51→21:59)
[2016-07-18] MEDS: HumaLOG INSULIN (NovoLOG) PER UNIT SC SCH ×4 (08:51→22:00)
[2016-07-18] MEDS: amLODIPine 10 MG TAB PO SCH (08:51)
[2016-07-18] MEDS: CARVedilol 12.5 MG TAB PO SCH ×2 (08:51→22:02)
[2016-07-18] MEDS: ASPIRIN 81 MG CHEW TABLET PO SCH (08:52)
[2016-07-18] MEDS: ATORVASTATIN 20 MG TAB PO SCH (08:52)
[2016-07-18] MEDS: ISOSORBIDE DIN. (ISORDIL) 20 MG TAB PO SCH ×3 (08:52→22:02)
[2016-07-18] MEDS: DOCUSATE SODIUM 100 MG CAP PO SCH ×2 (08:52→22:03)
[2016-07-18] MEDS: PANTOPRAZOLE 40MG TAB (PROTONIX) PO SCH (08:52)
--- NOTE | 2016-07-18 08:52 | IPN ---
DATE: 07/18/2016 Mr. Mcmullen feels about the same as yesterday or maybe slightly better. He tells me that he was able to ambulate on the floor. He felt short of breath but he feels that every da there is some improvement. Denies any chest pain. Continues to have peripheral edema. Blood pressure 154/72, heart rate in 60s. He is afebrile. Saturation 92% on room air. His weight was documented as 98.6 yesterday. There is not one from this morning. Fluid balance yesterday about 800 positive. He supposedly drink about 3.5 liters of fluids. Patient tells me that it is not accurate that he believes that a lot of the fluid that he feels he never actually ends up drinking. He is alert and oriented and appropriate. His jugular venous pulse (JVP) is not up. Lungs are clear. Good air movement. Heart exam reveals positive as S1, S2 and S4. I do not appreciate any S3 gallop. No murmurs. Abdomen is soft, nontender. There is about 2+ edema to his knees. Laboratory huston: Hemoglobin 9.7, hematocrit 28, platelet count 182,000. Basic metabolic panel: Potassium 4.1, BUN 42, creatinine 1.8, GFR 41. ASSESSMENT AND PLAN: Mr. Mcmullen is a 66-year-old man who has hypertensive heart disease with severe left ventricular hypertrophy (LVH). He has a history of no medical care for many years and likely had many years of untreated hypertension. He presented with congestive heart failure that seems to have much improved. He now though still has problems with peripheral edema, which I think at least in part of due to amlodipine. I think that I would wait one more day before starting diuretics. Otherwise, I think is progressing relatively nicely. What will be challenged with him is long-term management. I will not make any medication changes today. I had a discussion with him about fluid restrictions. I told him to try to drink as little as possible.
--- NOTE | 2016-07-18 11:41 | IPNPDOC ---
Text Note Date of Service The patient was seen on 07/18/16 at 11:38. NOTE Subjective: Patient is a 66 year male with a PMHx of HTN, COPD, who presented to the ER with complaints of shortness of breath. Patient was recently discharged for COPD exacerbation a few hours earlier. The previous admission he required intubation and stayed in the hospital for 3 weeks. Patient was admitted for diastolic CHF exacerbation. He has received Lasix, dosed daily based on clinical status. Patient was seen and examined at the bedside. He notes that he is feeling well. Has had some leg swelling / tightness that he has noticed. Objective: Vitals (See below) General: Sitting up in bed, no acute distress, aaox3 HEENT: NC, AT CVS: RRR, +S1S2 Lungs: Fair air entry b/l, - w/ rhonchi, + mild crackles at b/l bases Abdomen: Soft, ND, NT, +BSx4 Extremities: +PPx4, 1+ pitting edema bilaterally, - Calf tenderness Assessment and Plan: 1. s/p Acute hypercarbic respiratory failure - likely 2/2 diastolic CHF exacerbation and HCAP - CT chest with patchy diffuse bilateral alveolar infiltrates (R>L) with bibasilar consolidation/atelectasis and pleural effusions (L > R) - DDx multifocal PNA - Blood cultures negative; Sputum culture x2 with Staph aureus - f/u strep and legionella urine antigen - Has been started on antibiotics - Cefepime and Vancomycin (Day #5); will transition to TMP-SMX upon discharge 2. Decompensated diastolic heart failure with preserved EF - no labored breathing, mild pitting edema - ECHO 06/2016 - Diastolic dysfunction, EF preserved - CXR with DDx includes CHF/pulmonary vascular congestion as well as multifocal pneumonia - has received lasix initially; has been held 2/2 NATALIE - strict ins / outs, daily weights, keep head of bed elevated - cumulative output of -0.4 Liters since admission - will monitor for now - will keep on fluid restrictions - Dr. Church (Cardiology) following - appreciate their input 3. Elevated troponin - likely 2/2 demand ischemia 2/2 diastolic CHF exacerbation - no complaints of chest pain - troponin levels have trended down 4. 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 HTN - BP controlled - c/w home medications with holding parameters 6. IDDM2 - c/w insulin sliding scale and Levemir 7. GERD - c/w PPI 8. DVT prophylaxis - c/w heparin VS,Fishbone, I+O VS, Fishbone, I+O Laboratory Tests 07/18/16 05:45 Calcium Level 8.4 L, Red Blood Count 3.34 L, Mean Corpuscular Volume 86.1, Mean Corpuscular Hemoglobin 29.1, Mean Corpuscular Hemoglobin Concent 33.8, Red Cell Distribution Width 13.2 Vital Signs Date Time Temp Pulse Resp B/P Pulse Ox O2 Delivery O2 Flow Rate FiO2 07/18/16 08:52 154/72 07/18/16 08:51 63 07/18/16 06:00 97.8 18 92 Room Air 07/17/16 21:30 2.0 I&O- Last 24 Hours up to 6 AM 07/18/16 06:00 Intake Total 2420 ml Output Total 2000 ml Balance 420 ml ALEJANDRA VERDUZCO MD Jul 18, 2016 11:41
[2016-07-18] MEDS: SPIRONOLACTONE 25 MG TAB PO SCH (12:20)
[2016-07-18 14:00] VITALS: BP 155/70
[2016-07-18 14:12] LABS: METANEPHRINE URINE 232 ug/24 hr (45-290); NORMETANEPHRINE URINE 1075 ug/24 hr (82-500)
[2016-07-18] MEDS ORDERED: VANCOMYCIN HCL 1,000 MG, VIAL MATE ADAPTER 1 EACH in D5W 250 ML IV SCH (18:00)
[2016-07-18 22:00] VITALS: BP 142/63
[2016-07-18] MEDS: LEVEMIR (INSULIN DETEMIR) 1 UNITS/0.01ML SC SCH (22:01)
[2016-07-18] MEDS: BACTRIM 160MG/800MG DS TAB PO SCH (22:02)
[2016-07-18 22:19] VITALS: O2SAT 92
[2016-07-19] MEDS: IPRATROPIUM 0.5MG/ALBUTEROL 2.5MG INH SOL UD 3ML (DUONEB)(J7620) NEB SCH ×6 (00:06→23:09)
[2016-07-19 00:07] LABS: ORGANISM ID Not indicated. (.); SPECIMEN SOURCE Urine (.)
[2016-07-19] MEDS: SLF 3 ML SYR IV SCH ×3 (05:55→20:23)
[2016-07-19 06:00] VITALS: BP 127/61
[2016-07-19 06:57] LABS: MEAN CORPUSCULAR HEMOGLOBIN 28.8 pg (27.0-33.0); MEAN CORPUSCULAR HGB CONC 32.8 g/dl (32.0-36.5); MEAN CORPUSCULAR VOLUME 87.8 fl (80.0-96.0); RED CELL DISTRIBUTION WIDTH 12.5 % (11.5-14.5); WHITE BLOOD COUNT 5.3 K/mm3 (4.0-10.0)
[2016-07-19 07:03] LABS: CALCIUM LEVEL 8.8 MG/DL (8.8-10.2); CREATININE FOR GFR 1.58 MG/DL (0.70-1.30); GLOMERULAR FILTRATION RATE 46.7 (>49); POTASSIUM SERUM 4.1 MEQ/L (3.5-5.1)
[2016-07-19] MEDS: HumaLOG INSULIN (NovoLOG) PER UNIT SC SCH ×4 (07:30→20:23)
[2016-07-19] MEDS: TIOTROPIUM INHALER/CAPSULE (SPIRIVA) INH SCH (07:44)
[2016-07-19] MEDS: ADVAIR DISKUS 500/50 INH PWD INH SCH ×2 (07:45→19:47)
[2016-07-19] MEDS: ISOSORBIDE DIN. (ISORDIL) 20 MG TAB PO SCH ×3 (08:25→20:20)
[2016-07-19] MEDS: CARVedilol 12.5 MG TAB PO SCH ×2 (08:25→20:19)
[2016-07-19] MEDS: ASPIRIN 81 MG CHEW TABLET PO SCH (08:26)
[2016-07-19] MEDS: PANTOPRAZOLE 40MG TAB (PROTONIX) PO SCH (08:26)
[2016-07-19] MEDS: BACTRIM 160MG/800MG DS TAB PO SCH ×2 (08:26→20:20)
[2016-07-19] MEDS: **hydrALAZINE** 50 MG TAB PO SCH ×3 (08:26→20:20)
[2016-07-19] MEDS: predniSONE 10 MG TAB PO SCH (08:26)
[2016-07-19] MEDS: amLODIPine 10 MG TAB PO SCH (08:26)
[2016-07-19] MEDS: DOCUSATE SODIUM 100 MG CAP PO SCH ×2 (08:26→20:20)
[2016-07-19] MEDS: MIRALAX *UNIT DOSE* 17GM PACKET PO SCH ×2 (08:27→20:20)
[2016-07-19] MEDS: ATORVASTATIN 20 MG TAB PO SCH (08:27)
[2016-07-19] MEDS: SPIRONOLACTONE 25 MG TAB PO SCH (12:57)
--- NOTE | 2016-07-19 13:47 | IPNPDOC ---
Text Note Date of Service The patient was seen on 07/19/16 at 13:44. NOTE Subjective: Patient is a 66 year male with a PMHx of HTN, COPD, who presented to the ER with complaints of shortness of breath. Patient was recently discharged for COPD exacerbation a few hours earlier. The previous admission he required intubation and stayed in the hospital for 3 weeks. Patient was admitted for diastolic CHF exacerbation. He has received Lasix, dosed daily based on clinical status. Patient was seen and examined at the bedside. He notes that he is feeling well. Has kept his legs elevated all night. Has been tolerating the fluid restrictions that were started. Objective: Vitals (See below) General: Sitting up in bed, no acute distress, aaox3 HEENT: NC, AT CVS: RRR, +S1S2 Lungs: Fair air entry b/l, - w/ rhonchi, + mild crackles at b/l bases Abdomen: Soft, ND, NT, +BSx4 Extremities: +PPx4, 1+ pitting edema bilaterally, - Calf tenderness Assessment and Plan: 1. s/p Acute hypercarbic respiratory failure - likely 2/2 diastolic CHF exacerbation and HCAP - CT chest with patchy diffuse bilateral alveolar infiltrates (R>L) with bibasilar consolidation/atelectasis and pleural effusions (L > R) - DDx multifocal PNA - Blood cultures negative; Sputum culture x2 with Staph aureus - Strep and legionella urine antigen negative - c/w TMP-SMX at this time; s/p Cefepime and Vancomycin - Day #6 of antibiotics 2. Decompensated diastolic heart failure with preserved EF - no labored breathing, mild pitting edema - ECHO 06/2016 - Diastolic dysfunction, EF preserved - CXR with DDx includes CHF/pulmonary vascular congestion as well as multifocal pneumonia - has received lasix initially; has been held 2/2 NATALIE - strict ins / outs, daily weights, keep head of bed elevated - cumulative output of -1.0 Liters since admission - c/w fluid restrictions - Dr. Church (Cardiology) following - appreciate their input 3. Elevated troponin - likely 2/2 demand ischemia 2/2 diastolic CHF exacerbation - no complaints of chest pain - troponin levels have trended down 4. 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 HTN - BP controlled - c/w home medications with holding parameters 6. IDDM2 - c/w insulin sliding scale and Levemir 7. GERD - c/w PPI 8. DVT prophylaxis - c/w heparin VS,Fishbone, I+O VS, Fishbone, I+O Laboratory Tests 07/19/16 06:11 Calcium Level 8.8, Red Blood Count 3.41 L, Mean Corpuscular Volume 87.8, Mean Corpuscular Hemoglobin 28.8, Mean Corpuscular Hemoglobin Concent 32.8, Red Cell Distribution Width 12.5 Vital Signs Date Time Temp Pulse Resp B/P Pulse Ox O2 Delivery O2 Flow Rate FiO2 07/19/16 09:00 Room Air 07/19/16 06:00 97.0 64 19 127/61 90 07/17/16 21:30 2.0 I&O- Last 24 Hours up to 6 AM 07/19/16 05:59 Intake Total 1257 ml Output Total 970 ml Balance 287 ml ALEJANDRA VERDUZCO MD Jul 19, 2016 13:46
[2016-07-19 14:00] VITALS: BP 127/65
[2016-07-19] MEDS: FUROSEMIDE 40 MG TAB PO SCH (18:07)
[2016-07-19] MEDS: cloNIDine HCL 0.3 MG/24 HR PATCH TOP SCH (20:22)
[2016-07-19] MEDS: LEVEMIR (INSULIN DETEMIR) 1 UNITS/0.01ML SC SCH (20:23)
[2016-07-19 22:00] VITALS: BP 160/78
[2016-07-19] MEDS: HEPARIN SOD (PORCINE) 5000 UNITS/ML VIAL SQ SCH (22:29)
[2016-07-20] MEDS: IPRATROPIUM 0.5MG/ALBUTEROL 2.5MG INH SOL UD 3ML (DUONEB)(J7620) NEB SCH ×6 (04:00→23:06)
[2016-07-20] MEDS: SLF 3 ML SYR IV SCH ×3 (05:18→21:01)
[2016-07-20 06:00] VITALS: BP 153/70
[2016-07-20 08:27] LABS: BASO % 0.4 % (0.0-1.0); EOS % 0.6 % (0.0-3.0); LARGE UNSTAINED CELL # 0.1 K/mm3 (0.0-0.4); LARGE UNSTAINED CELL % 1.6 % (0.0-4.0); LYMPH # 1.3 K/mm3 (1.5-4.5); LYMPH % 19.1 % (24.0-44.0); MEAN CORPUSCULAR HEMOGLOBIN 29.1 pg (27.0-33.0); MEAN CORPUSCULAR HGB CONC 33.4 g/dl (32.0-36.5); MEAN CORPUSCULAR VOLUME 87.1 fl (80.0-96.0); MONO # 0.4 K/mm3 (0.0-0.8); MONO % 6.4 % (0.0-5.0); NEUTROPHILS # 4.9 K/mm3 (1.8-7.7); NEUTROPHILS % 71.9 % (36.0-66.0); PLATELET COUNT, AUTOMATED 264 k/mm3 (150-450); RED CELL DISTRIBUTION WIDTH 12.6 % (11.5-14.5); WHITE BLOOD COUNT 6.8 K/mm3 (4.0-10.0)
[2016-07-20] MEDS: ADVAIR DISKUS 500/50 INH PWD INH SCH ×2 (08:32→20:36)
[2016-07-20] MEDS: TIOTROPIUM INHALER/CAPSULE (SPIRIVA) INH SCH (08:32)
[2016-07-20 08:47] LABS: ALBUMIN 2.8 GM/DL (3.2-5.2); ALBUMIN/GLOBULIN RATIO 0.82 (1.00-1.93); BILIRUBIN,TOTAL 0.2 MG/DL (0.2-1.0); CALCIUM LEVEL 8.6 MG/DL (8.8-10.2); CREATININE FOR GFR 1.9 MG/DL (0.70-1.30); GLOMERULAR FILTRATION RATE 37.7 (>49); MAGNESIUM LEVEL 1.9 MG/DL (1.8-2.4); POTASSIUM SERUM 4.7 MEQ/L (3.5-5.1); TOTAL PROTEIN 6.2 GM/DL (6.4-8.2)
[2016-07-20] MEDS: HumaLOG INSULIN (NovoLOG) PER UNIT SC SCH ×4 (08:55→20:51)
[2016-07-20] MEDS: MIRALAX *UNIT DOSE* 17GM PACKET PO SCH ×2 (08:56→20:51)
[2016-07-20] MEDS: HEPARIN SOD (PORCINE) 5000 UNITS/ML VIAL SQ SCH ×2 (08:56→20:50)
[2016-07-20] MEDS: predniSONE 10 MG TAB PO SCH (08:56)
[2016-07-20] MEDS: BACTRIM 160MG/800MG DS TAB PO SCH (08:57)
[2016-07-20] MEDS: ASPIRIN 81 MG CHEW TABLET PO SCH (08:57)
[2016-07-20] MEDS: DOCUSATE SODIUM 100 MG CAP PO SCH ×2 (08:57→20:51)
[2016-07-20] MEDS: **hydrALAZINE** 50 MG TAB PO SCH ×3 (08:57→20:51)
[2016-07-20] MEDS: ATORVASTATIN 20 MG TAB PO SCH (08:57)
[2016-07-20] MEDS: FUROSEMIDE 40 MG TAB PO SCH (08:57)
[2016-07-20] MEDS: CARVedilol 12.5 MG TAB PO SCH ×2 (08:57→20:52)
[2016-07-20] MEDS: amLODIPine 10 MG TAB PO SCH (08:57)
[2016-07-20] MEDS: ISOSORBIDE DIN. (ISORDIL) 20 MG TAB PO SCH ×3 (08:58→20:51)
[2016-07-20] MEDS: PANTOPRAZOLE 40MG TAB (PROTONIX) PO SCH (08:58)
[2016-07-20] MEDS: SPIRONOLACTONE 25 MG TAB PO SCH (12:21)
--- NOTE | 2016-07-20 13:29 | IPN ---
DATE OF SERVICE: 07/20/2016 Mr. Mcmullen tells me that he is feeling about the same. He has been able to ambulate and still gets short of breath but overall reports significant improvement. Blood pressure 153/70, and he usually is between 127-160 systolic, heart rate is in 60s. He is afebrile. Saturation is 90% to 93% on room air. Fluid balance yesterday was documented about 1 liter negative. Weight was documented 94.3 kg. There is no weight this morning. He is alert and oriented and appropriate. He appears to be in no distress, but he gets short of breath just talking for a longer period of time. Jugular venous pressure (JVP) does not appear elevated. Lungs are clear. Heart examination: Regular rhythm. No gallop, rub, or murmur is appreciated. Abdomen is soft, nontender. There is still 2-3+ edema almost to his knees. Neurologically, he is intact. LABORATORY-WHITE: Hemoglobin 11.2 a hematocrit 33, and platelet count 263,000. Basic metabolic panel: Sodium 139, potassium 4.7, BUN 46, creatinine 1.9, for a calculated GFR of 38 and a glucose of 150. ASSESSMENT AND PLAN: Mr. Mcmullen is a 66-year-old man who presented with severe hypertensive heart disease and resulting congestive heart failure and renal failure. He still struggles with good blood pressure control. On top of it, he has peripheral edema, which I suspect is principal side effects of amlodipine rather than indication of volume overloaded state. Unfortunately, his creatinine bumped up again, even though he did not start getting diuretics until this morning. I suspect that this could be from Bactrim, and my recommendation will be to discontinue the medication. Even though his blood pressure is not really well-controlled, I am going to discontinue the amlodipine to see whether this is behind his peripheral edema. He is already on high dose of hydralazine, so I do not expect that there will be big change without amlodipine. Before we can discharge the patient home, there is one remaining issue. The patient believes that he does not have any medication coverage. Considering that he takes numerous medications, it will certainly represent a problem. I think that neonatal social worker need to evaluate this before he goes home.
[2016-07-20 14:00] VITALS: BP 143/67
--- NOTE | 2016-07-20 14:09 | IPNPDOC ---
Text Note Date of Service The patient was seen on 07/20/16 at 14:03. NOTE Subjective: Patient is a 66 year male with a PMHx of HTN, COPD, who presented to the ER with complaints of shortness of breath. Patient was recently discharged for COPD exacerbation a few hours earlier. The previous admission he required intubation and stayed in the hospital for 3 weeks. Patient was admitted for diastolic CHF exacerbation. He has received Lasix, dosed daily based on clinical status. Patient was seen and examined at the bedside. He notes that he is feeling well. Has noted some worsening of his leg swelling today. Objective: Vitals (See below) General: Sitting up in bed, no acute distress, aaox3 HEENT: NC, AT CVS: RRR, +S1S2 Lungs: Fair air entry b/l, - w/ rhonchi, + mild crackles at b/l bases Abdomen: Soft, ND, NT, +BSx4 Extremities: +PPx4, 1+ pitting edema bilaterally, - Calf tenderness Assessment and Plan: 1. s/p Acute hypercarbic respiratory failure - likely 2/2 diastolic CHF exacerbation and HCAP - CT chest with patchy diffuse bilateral alveolar infiltrates (R>L) with bibasilar consolidation/atelectasis and pleural effusions (L > R) - DDx multifocal PNA - Blood cultures negative; Sputum culture x2 with Staph aureus - Strep and legionella urine antigen negative - c/w TMP-SMX at this time; s/p Cefepime and Vancomycin - Day #7 of antibiotics - Will discontinue antibiotics after tonight's dose 2. Decompensated diastolic heart failure with preserved EF - no labored breathing, mild pitting edema - ECHO 06/2016 - Diastolic dysfunction, EF preserved - CXR with DDx includes CHF/pulmonary vascular congestion as well as multifocal pneumonia - has received lasix initially; was held 2/2 NATALIE - strict ins / outs, daily weights, keep head of bed elevated - cumulative output of -2.6 Liters since admission - c/w fluid restrictions - Will receive lasix today - Dr. Church (Cardiology) following - appreciate their input 3. Elevated troponin - likely 2/2 demand ischemia 2/2 diastolic CHF exacerbation - no complaints of chest pain - troponin levels have trended down 4. 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 HTN - BP controlled - c/w Carvedilol, Clondine patch, Hydralazine, Spironolactone - Amlodipine discontinued today - (re: LE edema) 6. IDDM2 - c/w insulin sliding scale and Levemir 7. GERD - c/w PPI 8. DVT prophylaxis - c/w heparin VS,Fishbone, I+O VS, Fishbone, I+O Laboratory Tests 07/20/16 08:16 Calcium Level 8.6 L, Aspartate Amino Transf (AST/SGOT) 13 L, Alanine Aminotransferase (ALT/SGPT) 36, Alkaline Phosphatase 62, Total Bilirubin 0.2, Total Protein 6.2 L, Albumin 2.8 L, Red Blood Count 3.84 L, Mean Corpuscular Volume 87.1, Mean Corpuscular Hemoglobin 29.1, Mean Corpuscular Hemoglobin Concent 33.4, Red Cell Distribution Width 12.6, Neutrophils (%) (Auto) 71.9 H, Lymphocytes (%) (Auto) 19.1 L, Monocytes (%) (Auto) 6.4 H, Eosinophils (%) (Auto ) 0.6, Basophils (%) (Auto) 0.4, Neutrophils # (Auto) 4.9, Lymphocytes # (Auto) 1.3 L, Monocytes # (Auto) 0.4, Eosinophils # (Auto) 0.0, Basophils # (Auto) 0.0 Vital Signs Date Time Temp Pulse Resp B/P Pulse Ox O2 Delivery O2 Flow Rate FiO2 07/20/16 09:00 Room Air 07/20/16 06:00 97.2 68 18 153/70 90 07/17/16 21:30 2.0 I&O- Last 24 Hours up to 6 AM 07/20/16 06:00 Intake Total 810 ml Output Total 1775 ml Balance -965 ml ALEJANDRA VERDUZCO MD Jul 20, 2016 14:09
[2016-07-20] MEDS: LEVEMIR (INSULIN DETEMIR) 1 UNITS/0.01ML SC SCH (20:50)
[2016-07-20 22:00] VITALS: BP 137/60
[2016-07-21] MEDS: IPRATROPIUM 0.5MG/ALBUTEROL 2.5MG INH SOL UD 3ML (DUONEB)(J7620) NEB SCH ×6 (04:00→23:16)
[2016-07-21] MEDS: SLF 3 ML SYR IV SCH ×3 (05:29→21:03)
[2016-07-21 06:00] VITALS: BP 119/56
[2016-07-21 07:19] LABS: BASO % 0.4 % (0.0-1.0); EOS % 0.1 % (0.0-3.0); LARGE UNSTAINED CELL # 0.1 K/mm3 (0.0-0.4); LARGE UNSTAINED CELL % 1.6 % (0.0-4.0); LYMPH # 1.1 K/mm3 (1.5-4.5); LYMPH % 16.1 % (24.0-44.0); MEAN CORPUSCULAR HEMOGLOBIN 29.1 pg (27.0-33.0); MEAN CORPUSCULAR HGB CONC 33.7 g/dl (32.0-36.5); MEAN CORPUSCULAR VOLUME 86.5 fl (80.0-96.0); MONO # 0.4 K/mm3 (0.0-0.8); MONO % 6.4 % (0.0-5.0); NEUTROPHILS # 5.1 K/mm3 (1.8-7.7); NEUTROPHILS % 75.3 % (36.0-66.0); PLATELET COUNT, AUTOMATED 252 k/mm3 (150-450); RED CELL DISTRIBUTION WIDTH 12.8 % (11.5-14.5); WHITE BLOOD COUNT 6.8 K/mm3 (4.0-10.0)
[2016-07-21 07:44] LABS: ALBUMIN 2.6 GM/DL (3.2-5.2); ALBUMIN/GLOBULIN RATIO 0.81 (1.00-1.93); BILIRUBIN,TOTAL 0.3 MG/DL (0.2-1.0); CALCIUM LEVEL 8.2 MG/DL (8.8-10.2); CREATININE FOR GFR 2.01 MG/DL (0.70-1.30); GLOMERULAR FILTRATION RATE 35.3 (>49); MAGNESIUM LEVEL 1.8 MG/DL (1.8-2.4); POTASSIUM SERUM 4.4 MEQ/L (3.5-5.1); TOTAL PROTEIN 5.8 GM/DL (6.4-8.2)
[2016-07-21] MEDS: TIOTROPIUM INHALER/CAPSULE (SPIRIVA) INH SCH (07:52)
[2016-07-21] MEDS: ADVAIR DISKUS 500/50 INH PWD INH SCH ×2 (07:52→19:51)
[2016-07-21] MEDS: MIRALAX *UNIT DOSE* 17GM PACKET PO SCH ×2 (08:50→21:01)
[2016-07-21] MEDS: ASPIRIN 81 MG CHEW TABLET PO SCH (08:51)
[2016-07-21] MEDS: predniSONE 10 MG TAB PO SCH (08:51)
[2016-07-21] MEDS: FUROSEMIDE 40 MG TAB PO SCH (08:51)
[2016-07-21] MEDS: PANTOPRAZOLE 40MG TAB (PROTONIX) PO SCH (08:51)
[2016-07-21] MEDS: CARVedilol 12.5 MG TAB PO SCH ×2 (08:51→20:59)
[2016-07-21] MEDS: DOCUSATE SODIUM 100 MG CAP PO SCH ×2 (08:51→20:59)
[2016-07-21] MEDS: ATORVASTATIN 20 MG TAB PO SCH (08:51)
[2016-07-21] MEDS: **hydrALAZINE** 50 MG TAB PO SCH ×3 (08:52→20:59)
[2016-07-21] MEDS: HumaLOG INSULIN (NovoLOG) PER UNIT SC SCH ×4 (08:52→21:02)
[2016-07-21] MEDS: ISOSORBIDE DIN. (ISORDIL) 20 MG TAB PO SCH ×3 (08:52→21:00)
[2016-07-21] MEDS: HEPARIN SOD (PORCINE) 5000 UNITS/ML VIAL SQ SCH ×2 (08:53→21:02)
--- NOTE | 2016-07-21 12:17 | IPNPDOC ---
Text Note Date of Service The patient was seen on 07/21/16 at 12:14. NOTE Subjective: Patient is a 66 year male with a PMHx of HTN, COPD, who presented to the ER with complaints of shortness of breath. Patient was recently discharged for COPD exacerbation a few hours earlier. The previous admission he required intubation and stayed in the hospital for 3 weeks. Patient was admitted for diastolic CHF exacerbation. He has received Lasix, dosed daily based on clinical status. Patient was seen and examined at the bedside. He says he feels a little cold. He notes improvement in his leg swelling after starting lasix. Objective: Vitals (See below) General: Sitting up in bed, no acute distress, aaox3 HEENT: NC, AT CVS: RRR, +S1S2 Lungs: Fair air entry b/l, - w/ rhonchi, + mild crackles at b/l bases Abdomen: Soft, ND, NT, +BSx4 Extremities: +PPx4, trace pitting edema bilaterally, - Calf tenderness Assessment and Plan: 1. 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 Decompensated diastolic heart failure with preserved EF - no labored breathing, mild pitting edema - ECHO 06/2016 - Diastolic dysfunction, EF preserved - CXR with DDx includes CHF/pulmonary vascular congestion as well as multifocal pneumonia - has received lasix initially; was held 2/2 NATALIE - strict ins / outs, daily weights, keep head of bed elevated - c/w fluid restrictions and daily lasix - Dr. Church (Cardiology) following - appreciate their input 3. s/p Acute hypercarbic respiratory failure - likely 2/2 diastolic CHF exacerbation and HCAP - CT chest with patchy diffuse bilateral alveolar infiltrates (R>L) with bibasilar consolidation/atelectasis and pleural effusions (L > R) - DDx multifocal PNA - Blood cultures negative; Sputum culture x2 with Staph aureus - Strep and legionella urine antigen negative - s/p TMP-SMX ; s/p Cefepime and Vancomycin - completed 7 day course of antibiotics 4. Elevated troponin - likely 2/2 demand ischemia 2/2 diastolic CHF exacerbation - no complaints of chest pain - troponin levels have trended down 5. HTN - BP controlled - c/w Carvedilol, Clondine patch, Hydralazine, Spironolactone - s/p amlodipine (re: LE edema) 6. IDDM2 - c/w insulin sliding scale and Levemir 7. GERD - c/w PPI 8. DVT prophylaxis - c/w heparin VS,Fishbone, I+O VS, Fishbone, I+O Laboratory Tests 07/21/16 06:54 Calcium Level 8.2 L, Aspartate Amino Transf (AST/SGOT) 12 L, Alanine Aminotransferase (ALT/SGPT) 30, Alkaline Phosphatase 52, Total Bilirubin 0.3, Total Protein 5.8 L, Albumin 2.6 L, Red Blood Count 3.66 L, Mean Corpuscular Volume 86.5, Mean Corpuscular Hemoglobin 29.1, Mean Corpuscular Hemoglobin Concent 33.7, Red Cell Distribution Width 12.8, Neutrophils (%) (Auto) 75.3 H, Lymphocytes (%) (Auto) 16.1 L, Monocytes (%) (Auto) 6.4 H, Eosinophils (%) (Auto ) 0.1, Basophils (%) (Auto) 0.4, Neutrophils # (Auto) 5.1, Lymphocytes # (Auto) 1.1 L, Monocytes # (Auto) 0.4, Eosinophils # (Auto) 0.0, Basophils # (Auto) 0.0 Vital Signs Date Time Temp Pulse Resp B/P Pulse Ox O2 Delivery O2 Flow Rate FiO2 07/21/16 09:00 Room Air 07/21/16 06:00 96.9 61 19 119/56 92 07/17/16 21:30 2.0 I&O- Last 24 Hours up to 6 AM 07/21/16 06:00 Intake Total 1200 ml Output Total 2200 ml Balance -1000 ml ALEJANDRA VERDUZCO MD Jul 21, 2016 12:17
[2016-07-21] MEDS: SPIRONOLACTONE 25 MG TAB PO SCH (12:48)
[2016-07-21 14:00] VITALS: BP 152/69
[2016-07-21 16:34] LABS: OSMOLALITY URINE 394 MOSM/KG (500-800)
[2016-07-21] MEDS: LEVEMIR (INSULIN DETEMIR) 1 UNITS/0.01ML SC SCH (21:01)
[2016-07-21 22:00] VITALS: BP 146/70
[2016-07-22] MEDS: IPRATROPIUM 0.5MG/ALBUTEROL 2.5MG INH SOL UD 3ML (DUONEB)(J7620) NEB SCH ×6 (03:45→23:12)
[2016-07-22] MEDS: SLF 3 ML SYR IV SCH ×3 (05:33→21:02)
[2016-07-22 06:00] VITALS: BP 153/72
[2016-07-22 06:47] LABS: BASO % 0.5 % (0.0-1.0); EOS % 0.3 % (0.0-3.0); LARGE UNSTAINED CELL # 0.1 K/mm3 (0.0-0.4); LARGE UNSTAINED CELL % 1.3 % (0.0-4.0); LYMPH # 1.1 K/mm3 (1.5-4.5); LYMPH % 15.3 % (24.0-44.0); MEAN CORPUSCULAR HEMOGLOBIN 29.6 pg (27.0-33.0); MEAN CORPUSCULAR HGB CONC 34.2 g/dl (32.0-36.5); MEAN CORPUSCULAR VOLUME 86.6 fl (80.0-96.0); MONO # 0.5 K/mm3 (0.0-0.8); MONO % 6.4 % (0.0-5.0); NEUTROPHILS # 5.5 K/mm3 (1.8-7.7); NEUTROPHILS % 76.2 % (36.0-66.0); PLATELET COUNT, AUTOMATED 232 k/mm3 (150-450); RED CELL DISTRIBUTION WIDTH 12.6 % (11.5-14.5); WHITE BLOOD COUNT 7.2 K/mm3 (4.0-10.0)
[2016-07-22 07:19] LABS: ALBUMIN 2.5 GM/DL (3.2-5.2); ALBUMIN/GLOBULIN RATIO 0.89 (1.00-1.93); BILIRUBIN,TOTAL 0.1 MG/DL (0.2-1.0); CALCIUM LEVEL 8.3 MG/DL (8.8-10.2); CREATININE FOR GFR 1.87 MG/DL (0.70-1.30); GLOMERULAR FILTRATION RATE 38.4 (>49); POTASSIUM SERUM 4.3 MEQ/L (3.5-5.1); TOTAL PROTEIN 5.3 GM/DL (6.4-8.2)
[2016-07-22] MEDS: ADVAIR DISKUS 500/50 INH PWD INH SCH ×2 (07:47→21:03)
[2016-07-22] MEDS: TIOTROPIUM INHALER/CAPSULE (SPIRIVA) INH SCH (07:47)
[2016-07-22] MEDS: HumaLOG INSULIN (NovoLOG) PER UNIT SC SCH ×4 (09:42→21:01)
[2016-07-22] MEDS: HEPARIN SOD (PORCINE) 5000 UNITS/ML VIAL SQ SCH ×2 (09:43→21:00)
[2016-07-22] MEDS: CARVedilol 12.5 MG TAB PO SCH ×2 (09:43→21:00)
[2016-07-22] MEDS: MIRALAX *UNIT DOSE* 17GM PACKET PO SCH ×2 (09:43→20:59)
[2016-07-22] MEDS: **hydrALAZINE** 50 MG TAB PO SCH ×3 (09:44→20:59)
[2016-07-22] MEDS: DOCUSATE SODIUM 100 MG CAP PO SCH ×2 (09:44→21:00)
[2016-07-22] MEDS: ATORVASTATIN 20 MG TAB PO SCH (09:44)
[2016-07-22] MEDS: PANTOPRAZOLE 40MG TAB (PROTONIX) PO SCH (09:44)
[2016-07-22] MEDS: predniSONE 10 MG TAB PO SCH (09:44)
[2016-07-22] MEDS: ISOSORBIDE DIN. (ISORDIL) 20 MG TAB PO SCH ×3 (09:45→21:00)
[2016-07-22] MEDS: FUROSEMIDE 40 MG TAB PO SCH (09:45)
[2016-07-22] MEDS: ASPIRIN 81 MG CHEW TABLET PO SCH (09:45)
[2016-07-22] MEDS: SPIRONOLACTONE 25 MG TAB PO SCH (12:24)
--- NOTE | 2016-07-22 13:40 | IPNPDOC ---
[facility] Cardiology Progress Note Date of Service/Time The patient was seen on 07/22/16 at 13:18. Cardiology Progress Note Mr. Thorpe is a 66 y/o male who initially presented over a month ago with acute respiratory failure requiring mechanical ventilation thought to be secondary to decompensated diastolic congestive heart failure, the pt. was d/c and returned to our facility shortly thereafter for increasing SOB, orthopnea and heart palpitations. The pt states that he is feeling well today, SOB is better and admits that his lower extremity swelling that he had developed, is much improved. His amlodipine mediation was held in light of the peripheral edema, and although his blood pressure is not optimized, it is stable on his hydralazine, clonidine patch, spironolactone and Coreg therapy being in the 150 systolic and 70 diastolic range. The pts last ECHO exam showed sever hypertensive heart disease. His troponins have been declining and were last documented at .38 on 07/12/16. Creatine which was thought to be increased recently due to addition of Bactrim has also declined at 1.87 today. The pt at bedside is laying comfortably in bed, denies SOB, CP or palpitations. OBJECTIVE: PHYSICAL EXAMINATION: VITAL SIGNS: Please see below. GENERAL APPEARANCE: obese man, laying comfortably in bed in no acute distresss HEENT: NCAT, PERRLA, nares patent b/l, tongue midline with moist mucus membranes LUNGS: CTA b/l, no wheezing, crackles or rhonchi appreciated HEART: normal S1 and S2, could not appreciated any murmurs, rubs or gallops on exam ABDOMEN: obese, soft, non-tender, no organomegaly SKIN: intact, no abrasions noted NEUROLOGICAL: no focal deficit appreciated PSYCHIATRIC: appropriate affect LABORATORY WORK: Please see below. ASSESSMENT AND PLAN: Mr Mcmullen is a 66 y/o male with hypertensive heart disease and severe left ventricular hypertrophy and presented in CHF which seems to be improved. He understands that he should intake as little fluid as possible and is encouraged to be on fluid management/restriction. In light of his improving peripheral edema, we will continue to hold off on the patients amlodipine, he is not optimally managed in his blood pressure but it is stable on his clonidine , hydralazine and Coreg. His last troponin was on 07/12/16 and showed .38, it was improving, this can certainly be from exacerbation of congestive heart failure but at this time may also likely be due to patients acute kidney injury on CKD 3/4. I believe his increase in creatine may have been medication induced from Lasix or Bactrim therapy. Lasix therapy was continued one day ago by primary team, will leave to them for further management. No further medication adjustments at this time. Theodore QUINN: Agree with A&P above. Vital Signs/I&O VS/I&O Vital Signs Date Time Temp Pulse Resp B/P Pulse Ox O2 Delivery O2 Flow Rate FiO2 07/22/16 09:43 61 153/72 07/22/16 09:42 Room Air 07/22/16 06:00 96.3 20 94 07/17/16 21:30 2.0 I&O- Last 24 Hours up to 6 AM 07/22/16 06:00 Intake Total 1140 ml Output Total 3025 ml Balance -1885 ml Laboratory Data 24H LABS Laboratory Tests 2 07/21/16 15:17: Urine Amorphous Sediment , Urine Appearance CLEAR, Urine Color STRAW, Urine pH 5.0, Urine Specific Rossiter 1.009, Urine Protein 1+H, Urine Glucose (UA) 2+H, Urine Ketones NEGATIVE, Urine Urobilinogen 0.2, Urine Bilirubin NEGATIVE, Urine Leukocyte Esterase NEGATIVE, Urine Bacteria (Auto) NEGATIVE, Urine Blood NEGATIVE, Urine Calcium Carbonate Cryst(Auto) , Urine Calcium Oxalate Cryst ( Auto) , Urine Calcium Phosphate Leanna (Auto) , Urine Cellular Casts , Urine Cystine Crystals , Urine Granular Casts (Auto) , Urine Hyaline Casts (Auto) 0, Urine Leucine Crystals , Urine Mucus (Auto) SMALL, Urine Nitrite NEGATIVE, Urine Oval Fat Bodies (Auto) , Urine RBC (Auto) 0, Urine Random Creatinine 29.8 , Urine Random Osmolality 394L, Urine Random Sodium 97, Urine Renal Epithelial Cells , Urine Sperm (Auto) , Urine Squamous Epithelial Cells 0, Urine Transitional Epithelial Cells , Urine Trichomonas (Auto) , Urine Triple Phosphate Cryst (Auto) , Urine Tyrosine Crystals , Urine Uric Acid Crystals ( Auto) , Urine WBC (Auto) 0, Urine Waxy Casts (Auto) , Urine Yeast-Like Cells ( Auto) 07/21/16 20:31: Bedside Glucose (Misc Panel) 392H 07/22/16 06:15: Blood Urea Nitrogen 50H, Creatinine 1.87H, Sodium Level 138, Potassium Level 4.3 , Chloride Level 101, Carbon Dioxide Level 27, Calcium Level 8.3L, Aspartate Amino Transf (AST/SGOT) 10L, Alanine Aminotransferase (ALT/SGPT) 24, Alkaline Phosphatase 52, Total Bilirubin 0.1#L, Total Protein 5.3L, Albumin 2.5L, Albumin /Globulin Ratio 0.89L, Anion Gap 10, White Blood Count 7.2, Red Blood Count 3.50L, Hemoglobin 10.4L, Hematocrit 30.3L, Mean Corpuscular Volume 86.6, Mean Corpuscular Hemoglobin 29.6, Mean Corpuscular Hemoglobin Concent 34.2, Red Cell Distribution Width 12.6, Platelet Count 232, Neutrophils (%) (Auto) 76.2H, Lymphocytes (%) (Auto) 15.3L, Monocytes (%) (Auto) 6.4H, Eosinophils (%) (Auto) 0.3, Basophils (%) (Auto) 0.5, Neutrophils # (Auto) 5.5, Lymphocytes # (Auto) 1.1L, Monocytes # (Auto) 0.5, Eosinophils # (Auto) 0.0, Basophils # (Auto) 0.0, Glomerular Filtration Rate 38.4L, Large Unclassified Cells # 0.1, Large Unclassified Cells % 1.3, Magnesium Level 2.0 07/22/16 11:16: Bedside Glucose (Misc Panel) 115 CBC/BMP Laboratory Tests 07/22/16 06:15 Calcium Level 8.3 L, Aspartate Amino Transf (AST/SGOT) 10 L, Alanine Aminotransferase (ALT/SGPT) 24, Alkaline Phosphatase 52, Total Bilirubin 0.1 #L , Total Protein 5.3 L, Albumin 2.5 L, Red Blood Count 3.50 L, Mean Corpuscular Volume 86.6, Mean Corpuscular Hemoglobin 29.6, Mean Corpuscular Hemoglobin Concent 34.2, Red Cell Distribution Width 12.6, Neutrophils (%) (Auto) 76.2 H, Lymphocytes (%) (Auto) 15.3 L, Monocytes (%) (Auto) 6.4 H, Eosinophils (%) (Auto ) 0.3, Basophils (%) (Auto) 0.5, Neutrophils # (Auto) 5.5, Lymphocytes # (Auto) 1.1 L, Monocytes # (Auto) 0.5, Eosinophils # (Auto) 0.0, Basophils # (Auto) 0.0 FSBS Laboratory Tests Test 07/21/16 20:31 07/22/16 11:16 Range/Units Bedside Glucose (Misc Panel) 392 115 80-115 MG/DL Microbiology Microbiology 07/15/16 Blood Culture - Final, Complete NO GROWTH AFTER 5 DAYS 07/15/16 Blood Culture - Final, Complete NO GROWTH AFTER 5 DAYS 07/15/16 Gram Stain - Final, Complete 07/15/16 Sputum Culture - Final, Complete Staphylococcus Aureus 07/12/16 MRSA Screen - Final, Complete GME ATTESTATION GME ATTESTATION My preceptor for this patient encounter was physically present in the building during the encounter and was fully available. As needed, all aspects of the patient interview, examination, medical decision making process, and medical care plan development were reviewed and approved by the preceptor. Preceptor is aware and concurs with the plan as stated in the body of this note and will attest to such by his/her cosignature. SAGE WOO DO Jul 22, 2016 13:40 Esmer Church MD Jul 23, 2016 20:41
[2016-07-22 14:00] VITALS: BP 132/74
--- NOTE | 2016-07-22 14:56 | IPNPDOC ---
Text Note Date of Service The patient was seen on 07/22/16 at 14:51. NOTE Subjective: Patient states his short of breath has improved. He is walking with PT, although still has some KIRK, which is improved with nebs. Pt denies any chest pain/palpitations. Objective: Vitals: (see below) General: No acute distress, laying comfortably in bed. HEENT: Moist mucous membranes. Neck: No JVD or lymphadenopathy Cardiac: RRR, No murmurs Pulm: Coarse crackles and diminished breath sounds at the bases b/l. No wheezing , Abd: NT/ND + BS obese Ext: 1-2+ pitting edema BLE. No cyanosis Labs (see below) Images: CXR 06/29/16 Impression: Cardiomegaly with some improvement in the vascular congestion in the upper lung zones, but without bilateral effusions and basilar atelectatic changes, left greater than right. Renal u/s 06/23/16 IMPRESSION: 1. No evidence to suggest renal artery stenosis. 2. Increased renal cortical echogenicity consistent with medical renal disease. Echocardiogram 06/20/16 CONCLUSIONS: 1. Study is of acceptable technical quality. 2. Normal left ventricle (LV) size with severe left ventricular hypertrophy and preserved LV systolic function. Grade 1 diastolic dysfunction. Likely very high left ventricular end-diastolic pressure. 3. No significant valvular disease. 4. Normal RV size and systolic function. 5. High central venous pressure. 6. Unable to accurately estimate pulmonary artery pressure. COMMENT: Study is consistent with severe hypertensive heart disease and diastolic CHF. CXR 07/14/16 Impression: Perihilar and left lower lobe opacities as described above. Left pleural effusion. Differential diagnosis includes CHF/pulmonary vascular congestion as well as multifocal pneumonia. Assessment/Plan 1. NATALIE - Cr increased likely 2/2 bactrim. Bactrim has been discontinued and his creatinine is trending down. Baseline creatinine of 1.3-1.5. Renal ultrasound negative. 2. HCAP, s/p treatment with vanc and cefepime. Sputum cx with MRSA. 3. Status post acute decompensated diastolic heart failure- diuresed very well. Currently asymptomatic. Cardiology input appreciated. Cont lasix. 4. Status post acute hypoxic and hypercapnic respiratory requiring mechanical ventilation. Extubated 06/28/16. Continue nebs, increase to q4h, and steroids. Respiratory status is much improved. 5. Hypertensive; has notable LVH and left bundle-branch block. BP controlled. On Beta franklyn. TIFFANIE inhibitor and Lasix initially held given acute renal failure. On clonidine patch (dose increase), hydralazine, Coreg. Will ultimately need workup for resistant HTN. Metanephrines sent. On spironolactone now so will hold off workup for primary hyperparathyroidism. Renal u/s negative for GURWINDER on 06/23/16. Will need outpt sleep study as likely has GETACHEW. 6. Diabetes mellitus- Cont Levemir, SSI. 7. GERD- on PPI DVT prophylaxis- heparin subcutaneous F/u with Dr. Rowley outpt. VS,Fishbone, I+O VS, Fishbone, I+O Laboratory Tests 07/22/16 06:15 Calcium Level 8.3 L, Aspartate Amino Transf (AST/SGOT) 10 L, Alanine Aminotransferase (ALT/SGPT) 24, Alkaline Phosphatase 52, Total Bilirubin 0.1 #L , Total Protein 5.3 L, Albumin 2.5 L, Red Blood Count 3.50 L, Mean Corpuscular Volume 86.6, Mean Corpuscular Hemoglobin 29.6, Mean Corpuscular Hemoglobin Concent 34.2, Red Cell Distribution Width 12.6, Neutrophils (%) (Auto) 76.2 H, Lymphocytes (%) (Auto) 15.3 L, Monocytes (%) (Auto) 6.4 H, Eosinophils (%) (Auto ) 0.3, Basophils (%) (Auto) 0.5, Neutrophils # (Auto) 5.5, Lymphocytes # (Auto) 1.1 L, Monocytes # (Auto) 0.5, Eosinophils # (Auto) 0.0, Basophils # (Auto) 0.0 Vital Signs Date Time Temp Pulse Resp B/P Pulse Ox O2 Delivery O2 Flow Rate FiO2 07/22/16 09:43 61 153/72 07/22/16 09:42 Room Air 07/22/16 06:00 96.3 20 94 07/17/16 21:30 2.0 I&O- Last 24 Hours up to 6 AM 07/22/16 05:59 Intake Total 1140 ml Output Total 3125 ml Balance -1985 ml JANNETTE ANDERSEN MD Jul 22, 2016 14:56
[2016-07-22] MEDS: LEVEMIR (INSULIN DETEMIR) 1 UNITS/0.01ML SC SCH (21:01)
[2016-07-22 22:00] VITALS: BP 155/71
[2016-07-23] MEDS: IPRATROPIUM 0.5MG/ALBUTEROL 2.5MG INH SOL UD 3ML (DUONEB)(J7620) NEB SCH ×6 (04:25→23:35)
[2016-07-23 06:00] VITALS: BP 165/80
[2016-07-23] MEDS: SLF 3 ML SYR IV SCH ×3 (06:07→22:00)
[2016-07-23 07:02] LABS: BASO % 0.3 % (0.0-1.0); EOS % 0.2 % (0.0-3.0); LARGE UNSTAINED CELL # 0.1 K/mm3 (0.0-0.4); LARGE UNSTAINED CELL % 0.9 % (0.0-4.0); LYMPH # 0.9 K/mm3 (1.5-4.5); MEAN CORPUSCULAR HEMOGLOBIN 29.1 pg (27.0-33.0); MEAN CORPUSCULAR HGB CONC 33.7 g/dl (32.0-36.5); MEAN CORPUSCULAR VOLUME 86.3 fl (80.0-96.0); MONO # 0.5 K/mm3 (0.0-0.8); MONO % 6.1 % (0.0-5.0); NEUTROPHILS # 6.6 K/mm3 (1.8-7.7); NEUTROPHILS % 81.5 % (36.0-66.0); PLATELET COUNT, AUTOMATED 240 k/mm3 (150-450); RED CELL DISTRIBUTION WIDTH 12.8 % (11.5-14.5); WHITE BLOOD COUNT 8.1 K/mm3 (4.0-10.0)
[2016-07-23 07:12] LABS: ALBUMIN 2.8 GM/DL (3.2-5.2); ALBUMIN/GLOBULIN RATIO 0.97 (1.00-1.93); BILIRUBIN,TOTAL 0.2 MG/DL (0.2-1.0); CALCIUM LEVEL 8.5 MG/DL (8.8-10.2); CREATININE FOR GFR 1.84 MG/DL (0.70-1.30); GLOMERULAR FILTRATION RATE 39.1 (>49); POTASSIUM SERUM 4.4 MEQ/L (3.5-5.1); TOTAL PROTEIN 5.7 GM/DL (6.4-8.2)
[2016-07-23] MEDS: ADVAIR DISKUS 500/50 INH PWD INH SCH ×2 (07:45→20:45)
[2016-07-23] MEDS: TIOTROPIUM INHALER/CAPSULE (SPIRIVA) INH SCH (07:45)
[2016-07-23] MEDS: FUROSEMIDE 40 MG TAB PO SCH (08:14)
[2016-07-23] MEDS: **hydrALAZINE** 50 MG TAB PO SCH ×3 (08:14→21:22)
[2016-07-23] MEDS: DOCUSATE SODIUM 100 MG CAP PO SCH ×2 (08:15→21:23)
[2016-07-23] MEDS: ATORVASTATIN 20 MG TAB PO SCH (08:15)
[2016-07-23] MEDS: ISOSORBIDE DIN. (ISORDIL) 20 MG TAB PO SCH ×3 (08:15→21:23)
[2016-07-23] MEDS: predniSONE 10 MG TAB PO SCH (08:15)
[2016-07-23] MEDS: PANTOPRAZOLE 40MG TAB (PROTONIX) PO SCH (08:15)
[2016-07-23] MEDS: CARVedilol 12.5 MG TAB PO SCH ×2 (08:16→21:23)
[2016-07-23] MEDS: ASPIRIN 81 MG CHEW TABLET PO SCH (08:16)
[2016-07-23] MEDS: HEPARIN SOD (PORCINE) 5000 UNITS/ML VIAL SQ SCH ×2 (08:17→21:24)
[2016-07-23] MEDS: HumaLOG INSULIN (NovoLOG) PER UNIT SC SCH ×4 (08:17→21:24)
[2016-07-23] MEDS: MIRALAX *UNIT DOSE* 17GM PACKET PO SCH ×2 (08:17→21:23)
[2016-07-23] MEDS ORDERED: CARV12.5 PO (11:57)
[2016-07-23] MEDS ORDERED: FURO40TA2 PO (11:57)
[2016-07-23] MEDS ORDERED: ALDA25TA2 PO (11:57)
[2016-07-23] MEDS ORDERED: HYDR50TA PO (11:57)
[2016-07-23] MEDS ORDERED: CLON3PA TOP (11:57)
--- NOTE | 2016-07-23 12:20 | IPNPDOC ---
[facility] Cardiology Progress Note Date of Service/Time The patient was seen on 07/23/16 at 12:09. Cardiology Progress Note Mr. Thorpe is a 66 y/o male who initially presented over a month ago with acute respiratory failure requiring mechanical ventilation thought to be secondary to decompensated diastolic congestive heart failure, the pt. was d/c and returned to our facility shortly thereafter for increasing SOB, orthopnea and heart palpitations. OBJECTIVE: PHYSICAL EXAMINATION: VITAL SIGNS: Please see below. GENERAL APPEARANCE: Sitting comfortably in bed, not labored, pleasant HEENT: NCAT, nares patent b/l, PERRLA, tongue midline, moist mucus membranes LUNGS: CTA b/l but somewhat diminished breath sounds at bases, no rales, rhonchi or wheezing appreciated HEART: normal S1 and S2, could not appreciate any murmurs, rubs or gallops ABDOMEN: obese, soft, non-tender, non-distended, NABSx4, no organomegaly SKIN: intact NEUROLOGICAL: no focal deficits appreciated PSYCHIATRIC: normal affect, appropriate LABORATORY WORK: Please see below. ASSESSMENT AND PLAN: Mr. Thorpe seems comfortable today, admits to some mild SOB with ambulation, he has apparently been working with PT and doing well with this. Denies any CP, palpitations or SOB at rest. His blood pressure remains a bit elevated despite at 150-160/70 being on clonidine patch, hydralazine 100 mg TID, Coreg 25 mg TID medical therapy, recent renal u/s to examine for secondary cause of resistant hypertension on 06/23/16 was negative, would suggest further out patient workup. Patient also has decompensated diastolic heart failure but has diuresed well on lasix 40 mg QD therapy and states the edema in his legs has improved, would continue with lasix therapy as patients kidney function can tolerate, note creatine is 1.84 today from 1.87 one day prior. Cannot appreciate any JVD on clinical exam. His weight is measured at 91.8 kg today and he was net negative almost 2 Liters in the past 24 hours. Would continue to monitor at this point however patient seems to be doing well, no further medication recommendation changes at this time. Addendum Theodore QUINN: Agree with the above. Patient is still not optimally compensated but in my opinion can be discharged if his medications will be covered. I plan to see him in the office in 1-2 weeks. Vital Signs/I&O VS/I&O Vital Signs Date Time Temp Pulse Resp B/P Pulse Ox O2 Delivery O2 Flow Rate FiO2 07/23/16 08:22 Room Air 07/23/16 08:16 67 165/80 07/23/16 06:00 96.8 20 94 07/17/16 21:30 2.0 I&O- Last 24 Hours up to 6 AM 07/23/16 06:00 Intake Total 1140 ml Output Total 2850 ml Balance -1710 ml Laboratory Data 24H LABS Laboratory Tests 2 07/22/16 16:29: Bedside Glucose (Misc Panel) 250H 07/22/16 20:34: Bedside Glucose (Misc Panel) 430H 07/23/16 06:39: Blood Urea Nitrogen 48H, Creatinine 1.84H, Sodium Level 137, Potassium Level 4.4 , Chloride Level 101, Carbon Dioxide Level 29, Calcium Level 8.5L, Aspartate Amino Transf (AST/SGOT) 10L, Alanine Aminotransferase (ALT/SGPT) 26, Alkaline Phosphatase 53, Total Bilirubin 0.2#, Total Protein 5.7L, Albumin 2.8L, Albumin/ Globulin Ratio 0.97L, Anion Gap 7L, White Blood Count 8.1, Red Blood Count 3.72L , Hemoglobin 10.8L, Hematocrit 32.1L, Mean Corpuscular Volume 86.3, Mean Corpuscular Hemoglobin 29.1, Mean Corpuscular Hemoglobin Concent 33.7, Red Cell Distribution Width 12.8, Platelet Count 240, Neutrophils (%) (Auto) 81.5H, Lymphocytes (%) (Auto) 11.0L, Monocytes (%) (Auto) 6.1H, Eosinophils (%) (Auto) 0.2, Basophils (%) (Auto) 0.3, Neutrophils # (Auto) 6.6, Lymphocytes # (Auto) 0.9L, Monocytes # (Auto) 0.5, Eosinophils # (Auto) 0.0, Basophils # (Auto) 0.0, Glomerular Filtration Rate 39.1L, Large Unclassified Cells # 0.1, Large Unclassified Cells % 0.9, Magnesium Level 2.0 07/23/16 11:46: Bedside Glucose (Misc Panel) 228H CBC/BMP Laboratory Tests 07/23/16 06:39 Calcium Level 8.5 L, Aspartate Amino Transf (AST/SGOT) 10 L, Alanine Aminotransferase (ALT/SGPT) 26, Alkaline Phosphatase 53, Total Bilirubin 0.2 #, Total Protein 5.7 L, Albumin 2.8 L, Red Blood Count 3.72 L, Mean Corpuscular Volume 86.3, Mean Corpuscular Hemoglobin 29.1, Mean Corpuscular Hemoglobin Concent 33.7, Red Cell Distribution Width 12.8, Neutrophils (%) (Auto) 81.5 H, Lymphocytes (%) (Auto) 11.0 L, Monocytes (%) (Auto) 6.1 H, Eosinophils (%) (Auto ) 0.2, Basophils (%) (Auto) 0.3, Neutrophils # (Auto) 6.6, Lymphocytes # (Auto) 0.9 L, Monocytes # (Auto) 0.5, Eosinophils # (Auto) 0.0, Basophils # (Auto) 0.0 FSBS Laboratory Tests Test 07/22/16 16:29 07/22/16 20:34 07/23/16 11:46 Range/Units Bedside Glucose (Misc Panel) 250 430 228 80-115 MG/DL Microbiology Microbiology 07/15/16 Blood Culture - Final, Complete NO GROWTH AFTER 5 DAYS 07/15/16 Blood Culture - Final, Complete NO GROWTH AFTER 5 DAYS 07/15/16 Gram Stain - Final, Complete 07/15/16 Sputum Culture - Final, Complete Staphylococcus Aureus GME ATTESTATION GME ATTESTATION My preceptor for this patient encounter was physically present in the building during the encounter and was fully available. As needed, all aspects of the patient interview, examination, medical decision making process, and medical care plan development were reviewed and approved by the preceptor. Preceptor is aware and concurs with the plan as stated in the body of this note and will attest to such by his/her cosignature. SAGE WOO DO Jul 23, 2016 12:20 Esmer Church MD Jul 23, 2016 20:52
[2016-07-23] MEDS: SPIRONOLACTONE 25 MG TAB PO SCH (12:29)
[2016-07-23 14:00] VITALS: BP 138/65
--- NOTE | 2016-07-23 17:41 | IPNPDOC ---
Text Note Date of Service The patient was seen on 07/23/16 at 17:40. NOTE Subjective: Denies any dyspnea. Walking with PT. Objective: Vitals: (see below) General: No acute distress, laying comfortably in bed. HEENT: Moist mucous membranes. Neck: No JVD or lymphadenopathy Cardiac: RRR, No murmurs Pulm: Coarse crackles and diminished breath sounds at the bases b/l. No wheezing , Abd: NT/ND + BS obese Ext: 1-2+ pitting edema BLE. No cyanosis Labs (see below) Images: CXR 06/29/16 Impression: Cardiomegaly with some improvement in the vascular congestion in the upper lung zones, but without bilateral effusions and basilar atelectatic changes, left greater than right. Renal u/s 06/23/16 IMPRESSION: 1. No evidence to suggest renal artery stenosis. 2. Increased renal cortical echogenicity consistent with medical renal disease. Echocardiogram 06/20/16 CONCLUSIONS: 1. Study is of acceptable technical quality. 2. Normal left ventricle (LV) size with severe left ventricular hypertrophy and preserved LV systolic function. Grade 1 diastolic dysfunction. Likely very high left ventricular end-diastolic pressure. 3. No significant valvular disease. 4. Normal RV size and systolic function. 5. High central venous pressure. 6. Unable to accurately estimate pulmonary artery pressure. COMMENT: Study is consistent with severe hypertensive heart disease and diastolic CHF. CXR 07/14/16 Impression: Perihilar and left lower lobe opacities as described above. Left pleural effusion. Differential diagnosis includes CHF/pulmonary vascular congestion as well as multifocal pneumonia. Assessment/Plan 1. NATALIE - Cr increased likely 2/2 bactrim. Bactrim has been discontinued and his creatinine is trending down. Baseline creatinine of 1.3-1.5. Renal ultrasound negative. Spoke with Dr. Ruvalcaba who will be following up with him outpatient. 2. HCAP, s/p treatment with vanc and cefepime. Sputum cx with MRSA. 3. Status post acute decompensated diastolic heart failure- diuresed very well. Currently asymptomatic. Cardiology input appreciated. Cont lasix. 4. Status post acute hypoxic and hypercapnic respiratory requiring mechanical ventilation. Extubated 06/28/16. Continue nebs, increase to q4h, and steroids. Respiratory status is much improved. 5. Hypertensive; has notable LVH and left bundle-branch block. BP controlled. On Beta franklyn. TIFFANIE inhibitor and Lasix initially held given acute renal failure. On clonidine patch (dose increase), hydralazine, Coreg. Will ultimately need workup for resistant HTN. Metanephrines sent. On spironolactone now so will hold off workup for primary hyperparathyroidism. Renal u/s negative for GURWINDER on 06/23/16. Will need outpt sleep study as likely has GETACHEW. 6. Diabetes mellitus- Cont Levemir, SSI. 7. GERD- on PPI DVT prophylaxis- heparin subcutaneous F/u with Dr. Rowley outpt. Patient was planned for discharge today however states he has no place to go and his son is out of town. PFS will be working on safe discharge planning. VS,Cesarbone, I+O VS, Fishbone, I+O Laboratory Tests 07/23/16 06:39 Calcium Level 8.5 L, Aspartate Amino Transf (AST/SGOT) 10 L, Alanine Aminotransferase (ALT/SGPT) 26, Alkaline Phosphatase 53, Total Bilirubin 0.2 #, Total Protein 5.7 L, Albumin 2.8 L, Red Blood Count 3.72 L, Mean Corpuscular Volume 86.3, Mean Corpuscular Hemoglobin 29.1, Mean Corpuscular Hemoglobin Concent 33.7, Red Cell Distribution Width 12.8, Neutrophils (%) (Auto) 81.5 H, Lymphocytes (%) (Auto) 11.0 L, Monocytes (%) (Auto) 6.1 H, Eosinophils (%) (Auto ) 0.2, Basophils (%) (Auto) 0.3, Neutrophils # (Auto) 6.6, Lymphocytes # (Auto) 0.9 L, Monocytes # (Auto) 0.5, Eosinophils # (Auto) 0.0, Basophils # (Auto) 0.0 Vital Signs Date Time Temp Pulse Resp B/P Pulse Ox O2 Delivery O2 Flow Rate FiO2 07/23/16 16:49 138/65 07/23/16 14:00 97.9 65 18 94 07/23/16 08:22 Room Air 07/17/16 21:30 2.0 I&O- Last 24 Hours up to 6 AM 07/23/16 06:00 Intake Total 1140 ml Output Total 2850 ml Balance -1710 ml JANNETTE ANDERSEN MD Jul 23, 2016 17:41
[2016-07-23 21:23] VITALS: BP 162/76
[2016-07-23] MEDS: LEVEMIR (INSULIN DETEMIR) 1 UNITS/0.01ML SC SCH (21:25)
[2016-07-23 22:00] VITALS: BP 162/76
[2016-07-24] MEDS: IPRATROPIUM 0.5MG/ALBUTEROL 2.5MG INH SOL UD 3ML (DUONEB)(J7620) NEB SCH ×2 (03:50→07:09)
[2016-07-24] MEDS: SLF 3 ML SYR IV SCH (05:02)
[2016-07-24 06:00] VITALS: BP 131/63
[2016-07-24 06:21] LABS: BASO % 0.2 % (0.0-1.0); EOS % 0.2 % (0.0-3.0); LARGE UNSTAINED CELL # 0.1 K/mm3 (0.0-0.4); LARGE UNSTAINED CELL % 1.2 % (0.0-4.0); LYMPH % 13.6 % (24.0-44.0); MEAN CORPUSCULAR HEMOGLOBIN 29.1 pg (27.0-33.0); MEAN CORPUSCULAR HGB CONC 33.6 g/dl (32.0-36.5); MEAN CORPUSCULAR VOLUME 86.4 fl (80.0-96.0); MONO # 0.5 K/mm3 (0.0-0.8); MONO % 7.1 % (0.0-5.0); NEUTROPHILS # 5.9 K/mm3 (1.8-7.7); NEUTROPHILS % 77.6 % (36.0-66.0); PLATELET COUNT, AUTOMATED 217 k/mm3 (150-450); RED CELL DISTRIBUTION WIDTH 12.8 % (11.5-14.5); WHITE BLOOD COUNT 7.6 K/mm3 (4.0-10.0)
[2016-07-24 06:25] LABS: ALBUMIN 2.5 GM/DL (3.2-5.2); ALBUMIN/GLOBULIN RATIO 0.83 (1.00-1.93); BILIRUBIN,TOTAL 0.2 MG/DL (0.2-1.0); CALCIUM LEVEL 8.1 MG/DL (8.8-10.2); CREATININE FOR GFR 1.52 MG/DL (0.70-1.30); GLOMERULAR FILTRATION RATE 48.8 (>49); POTASSIUM SERUM 4.1 MEQ/L (3.5-5.1); TOTAL PROTEIN 5.5 GM/DL (6.4-8.2)
[2016-07-24] MEDS: TIOTROPIUM INHALER/CAPSULE (SPIRIVA) INH SCH (07:09)
[2016-07-24] MEDS: ADVAIR DISKUS 500/50 INH PWD INH SCH (07:09)
[2016-07-24] MEDS: CARVedilol 12.5 MG TAB PO SCH (08:37)
[2016-07-24] MEDS: ASPIRIN 81 MG CHEW TABLET PO SCH (08:37)
[2016-07-24] MEDS: HEPARIN SOD (PORCINE) 5000 UNITS/ML VIAL SQ SCH (08:37)
[2016-07-24] MEDS: PANTOPRAZOLE 40MG TAB (PROTONIX) PO SCH (08:37)
[2016-07-24] MEDS: DOCUSATE SODIUM 100 MG CAP PO SCH (08:37)
[2016-07-24] MEDS: MIRALAX *UNIT DOSE* 17GM PACKET PO SCH (08:38)
[2016-07-24] MEDS: **hydrALAZINE** 50 MG TAB PO SCH (08:38)
[2016-07-24] MEDS: ISOSORBIDE DIN. (ISORDIL) 20 MG TAB PO SCH (08:38)
[2016-07-24] MEDS: ATORVASTATIN 20 MG TAB PO SCH (08:38)
[2016-07-24] MEDS: FUROSEMIDE 40 MG TAB PO SCH (08:38)
[2016-07-24] MEDS: predniSONE 10 MG TAB PO SCH (08:38)
[2016-07-24] MEDS: HumaLOG INSULIN (NovoLOG) PER UNIT SC SCH (08:39)
--- NOTE | 2016-07-24 11:05 | IPNPDOC ---
[facility] Cardiology Progress Note Date of Service/Time The patient was seen on 07/24/16 at 10:56. Cardiology Progress Note Mr. Thorpe is a 66 y/o male who initially presented over a month ago with acute respiratory failure requiring mechanical ventilation thought to be secondary to decompensated diastolic congestive heart failure, the pt. was d/c and returned to our facility shortly thereafter for increasing SOB, orthopnea and heart palpitations. OBJECTIVE: PHYSICAL EXAMINATION: VITAL SIGNS: Please see below. GENERAL APPEARANCE: laying comfortably in bed, no apparent distress, pleasant HEENT: NCAT, PERRLA, EOMI, nares patent b/l, tongue midline, moist mucus membranes LUNGS: CTA b/L, cannot appreciate any wheezing, rhonchi or rales HEART: normal s1 and s2, rate in 70's NSR, no gallops, murmurs or rubs appreciated one exam ABDOMEN: obese, NABSx4, non-tender, non-distended, no organomegaly appreciated SKIN: intact EXTREMITIES: b/l +1 LE edema, better from one day ago NEUROLOGICAL: no focal deficits appreciated PSYCHIATRIC: normal affect and mood LABORATORY WORK: Please see below. ASSESSMENT AND PLAN: Mr. Thorpe again seems comfortable today, continues to describe some mild SOB with ambulation, especially when PT comes to work with him. Denies any CP, palpitations or SOB at rest. His blood pressure remains a bit elevated 130-160/ 70 even though he is medically managed on clonidine patch, hydralazine 100 mg TID, Coreg 25 mg TID. Would agree that further out patient workup for secondary cause of HTN would be prudent. Patient also has decompensated diastolic heart failure but has diuresed well on lasix 40 mg QD therapy and states the edema in his legs seems improved, would continue with lasix therapy as patients kidney function can tolerate, note creatine is 1.52 today from 1.84 one day prior, BUN is 43 from 48 one day ago. Cannot appreciate any JVD on clinical exam. His weight is measured at 91.8 kg today and he was net negative almost 630 mL in the past 24 hours. Would continue to monitor at this point however patient seems to be doing well, no further medication recommendation changes at this time. His ECHO study from 2015 showed normal left ventricular systolic function with marked concentric LVH, and features of left ventricular diastolic dysfunction grade 2 with EF of 60-65 %. Would not suggest any further changes in care at this time. Vital Signs/I&O VS/I&O Vital Signs Date Time Temp Pulse Resp B/P Pulse Ox O2 Delivery O2 Flow Rate FiO2 07/24/16 06:00 96.0 61 20 131/63 93 Room Air I&O- Last 24 Hours up to 6 AM 07/24/16 06:00 Intake Total 1200 ml Output Total 1650 ml Balance -450 ml Laboratory Data 24H LABS Laboratory Tests 2 07/23/16 11:46: Bedside Glucose (Misc Panel) 228H 07/23/16 16:41: Bedside Glucose (Misc Panel) 287H 07/23/16 20:40: Bedside Glucose (Misc Panel) 272H 07/24/16 04:59: Bedside Glucose (Misc Panel) 146H 07/24/16 05:51: Blood Urea Nitrogen 43H, Creatinine 1.52H, Sodium Level 138, Potassium Level 4.1 , Chloride Level 103, Carbon Dioxide Level 28, Calcium Level 8.1L, Aspartate Amino Transf (AST/SGOT) 11L, Alanine Aminotransferase (ALT/SGPT) 22, Alkaline Phosphatase 49, Total Bilirubin 0.2, Total Protein 5.5L, Albumin 2.5L, Albumin/ Globulin Ratio 0.83L, Anion Gap 7L, White Blood Count 7.6, Red Blood Count 3.59L , Hemoglobin 10.5L, Hematocrit 31.1L, Mean Corpuscular Volume 86.4, Mean Corpuscular Hemoglobin 29.1, Mean Corpuscular Hemoglobin Concent 33.6, Red Cell Distribution Width 12.8, Platelet Count 217, Neutrophils (%) (Auto) 77.6H, Lymphocytes (%) (Auto) 13.6L, Monocytes (%) (Auto) 7.1H, Eosinophils (%) (Auto) 0.2, Basophils (%) (Auto) 0.2, Neutrophils # (Auto) 5.9, Lymphocytes # (Auto) 1.0L, Monocytes # (Auto) 0.5, Eosinophils # (Auto) 0.0, Basophils # (Auto) 0.0, Glomerular Filtration Rate 48.8L, Large Unclassified Cells # 0.1, Large Unclassified Cells % 1.2, Magnesium Level 2.0 CBC/BMP Laboratory Tests 07/24/16 05:51 Calcium Level 8.1 L, Aspartate Amino Transf (AST/SGOT) 11 L, Alanine Aminotransferase (ALT/SGPT) 22, Alkaline Phosphatase 49, Total Bilirubin 0.2, Total Protein 5.5 L, Albumin 2.5 L, Red Blood Count 3.59 L, Mean Corpuscular Volume 86.4, Mean Corpuscular Hemoglobin 29.1, Mean Corpuscular Hemoglobin Concent 33.6, Red Cell Distribution Width 12.8, Neutrophils (%) (Auto) 77.6 H, Lymphocytes (%) (Auto) 13.6 L, Monocytes (%) (Auto) 7.1 H, Eosinophils (%) (Auto ) 0.2, Basophils (%) (Auto) 0.2, Neutrophils # (Auto) 5.9, Lymphocytes # (Auto) 1.0 L, Monocytes # (Auto) 0.5, Eosinophils # (Auto) 0.0, Basophils # (Auto) 0.0 FSBS Laboratory Tests Test 07/23/16 11:46 07/23/16 16:41 07/23/16 20:40 07/24/16 04:59 Range/Units Bedside Glucose (Misc Panel) 228 287 272 146 80-115 MG/DL Microbiology Microbiology 07/15/16 Blood Culture - Final, Complete NO GROWTH AFTER 5 DAYS 07/15/16 Blood Culture - Final, Complete NO GROWTH AFTER 5 DAYS 07/15/16 Gram Stain - Final, Complete 07/15/16 Sputum Culture - Final, Complete Staphylococcus Aureus GME ATTESTATION GME ATTESTATION My preceptor for this patient encounter was physically present in the building during the encounter and was fully available. As needed, all aspects of the patient interview, examination, medical decision making process, and medical care plan development were reviewed and approved by the preceptor. Preceptor is aware and concurs with the plan as stated in the body of this note and will attest to such by his/her cosignature. SAGE WOO DO Jul 24, 2016 11:05
[2016-07-24] MEDS ORDERED: ALBU17IN INH (11:07)
--- NOTE | 2016-07-24 17:51 | DS.PDOC ---
Discharge Summary General Date of Admission Jul 10, 2016 at 00:22 Date of Discharge Jul 24, 2016 at 11:53 Attending Physician: JANNETTE ANDERSEN MD Specialist/Consultants Involve: Esmer Church MD Discharge Summary PROCEDURES PERFORMED DURING STAY: None. COMPLICATIONS/CHIEF COMPLAINT: Herb/Copd/Squires/Htn/Sob ADMISSION/DISCHARGE DIAGNOSES: 1. Acute decompensated diastolic heart failure 2.Hypertensive urgency 3. Nonoliguric acute renal failure 4. COPD 5. Diabetes mellitus 6. GERD HISTORY OF PRESENT ILLNESS/HOSPITAL COURSE: This is a 66-year-old male past medical history of diastolic heart failure, hypertension, COPD, diabetes, GERD who presents complaining of shortness of breath. It appears that the patient started experiencing shortness of breath shortly after being discharged. The patient states he was in recliner though minimal exertion when the symptoms started. Upon presentation to the ED patient was in hypertensive urgency and acute decompensated diastolic heart failure. On his prior admission patient did go into acute renal failure with a creatinine greater than 6. His Lasix was held due to that. In addition to patient's blood pressure has been very difficult to control raising the question for secondary causes of resistant hypertension. With the help of nephrology, the patient's blood pressure was better controlled, however he will need to follow-up closely outpatient to determine the cause of his resistant hypertension, including ruling out obstructive sleep apnea.. The patient was also found to have healthcare acquired pneumonia, for which his antibiotics were changed from IV to by mouth Bactrim, causing his creatinine to rise. His creatinine is much improved and he will be following up with nephrology outpatient. Patient's respiratory status has significantly improved and he has been maintained on diuretics. He will be following up with cardio outpatient. DISCHARGE MEDICATIONS: Please see below. ALLERGIES: Please see below. PHYSICAL EXAMINATION ON DISCHARGE: VITAL SIGNS: Please see below. General: No acute distress, laying comfortably in bed. HEENT: Moist mucous membranes. Neck: No JVD or lymphadenopathy Cardiac: RRR, No murmurs Pulm: Coarse crackles and diminished breath sounds at the bases b/l. No wheezing , Abd: NT/ND + BS obese Ext: 1-2+ pitting edema BLE. No cyanosis LABORATORY DATA: Please see below. IMAGING: CXR 06/29/16 Impression: Cardiomegaly with some improvement in the vascular congestion in the upper lung zones, but without bilateral effusions and basilar atelectatic changes, left greater than right. Renal u/s 06/23/16 IMPRESSION: 1. No evidence to suggest renal artery stenosis. 2. Increased renal cortical echogenicity consistent with medical renal disease. Echocardiogram 06/20/16 CONCLUSIONS: 1. Study is of acceptable technical quality. 2. Normal left ventricle (LV) size with severe left ventricular hypertrophy and preserved LV systolic function. Grade 1 diastolic dysfunction. Likely very high left ventricular end-diastolic pressure. 3. No significant valvular disease. 4. Normal RV size and systolic function. 5. High central venous pressure. 6. Unable to accurately estimate pulmonary artery pressure. VTE Prophylaxis ordered?: Yes DISCHARGE CONDITION: Stable DISPOSITION: 01 Home, Self-Care ACTIVITY: As tolerated DIET: Low-sodium ITEMS TO FOLLOWUP ON OUTPATIENT: DISCHARGE PLAN AND INSTRUCTIONS: 1. Follow-up with PCP, Dr. Chavez, Dr. Church, and 1-2 weeks. TIME SPENT ON DISCHARGE: Greater than 30 minutes. Vital Signs/I&Os Vital Signs Date Time Temp Pulse Resp B/P Pulse Ox O2 Delivery O2 Flow Rate FiO2 07/24/16 09:00 Room Air 07/24/16 06:00 96.0 61 20 131/63 93 I&O- Last 24 Hours up to 6 AM 07/24/16 05:59 Intake Total 1260 ml Output Total 1850 ml Balance -590 ml Laboratory Data Labs 24H Laboratory Tests 2 07/23/16 20:40: Bedside Glucose (Misc Panel) 272H 07/24/16 04:59: Bedside Glucose (Misc Panel) 146H 07/24/16 05:51: Blood Urea Nitrogen 43H, Creatinine 1.52H, Sodium Level 138, Potassium Level 4.1 , Chloride Level 103, Carbon Dioxide Level 28, Calcium Level 8.1L, Aspartate Amino Transf (AST/SGOT) 11L, Alanine Aminotransferase (ALT/SGPT) 22, Alkaline Phosphatase 49, Total Bilirubin 0.2, Total Protein 5.5L, Albumin 2.5L, Albumin/ Globulin Ratio 0.83L, Anion Gap 7L, White Blood Count 7.6, Red Blood Count 3.59L , Hemoglobin 10.5L, Hematocrit 31.1L, Mean Corpuscular Volume 86.4, Mean Corpuscular Hemoglobin 29.1, Mean Corpuscular Hemoglobin Concent 33.6, Red Cell Distribution Width 12.8, Platelet Count 217, Neutrophils (%) (Auto) 77.6H, Lymphocytes (%) (Auto) 13.6L, Monocytes (%) (Auto) 7.1H, Eosinophils (%) (Auto) 0.2, Basophils (%) (Auto) 0.2, Neutrophils # (Auto) 5.9, Lymphocytes # (Auto) 1.0L, Monocytes # (Auto) 0.5, Eosinophils # (Auto) 0.0, Basophils # (Auto) 0.0, Glomerular Filtration Rate 48.8L, Large Unclassified Cells # 0.1, Large Unclassified Cells % 1.2, Magnesium Level 2.0 CBC/BMP Laboratory Tests 07/24/16 05:51 Calcium Level 8.1 L, Aspartate Amino Transf (AST/SGOT) 11 L, Alanine Aminotransferase (ALT/SGPT) 22, Alkaline Phosphatase 49, Total Bilirubin 0.2, Total Protein 5.5 L, Albumin 2.5 L, Red Blood Count 3.59 L, Mean Corpuscular Volume 86.4, Mean Corpuscular Hemoglobin 29.1, Mean Corpuscular Hemoglobin Concent 33.6, Red Cell Distribution Width 12.8, Neutrophils (%) (Auto) 77.6 H, Lymphocytes (%) (Auto) 13.6 L, Monocytes (%) (Auto) 7.1 H, Eosinophils (%) (Auto ) 0.2, Basophils (%) (Auto) 0.2, Neutrophils # (Auto) 5.9, Lymphocytes # (Auto) 1.0 L, Monocytes # (Auto) 0.5, Eosinophils # (Auto) 0.0, Basophils # (Auto) 0.0 FSBS Laboratory Tests Test 07/23/16 20:40 07/24/16 04:59 Range/Units Bedside Glucose (Misc Panel) 272 146 80-115 MG/DL Microbiology Microbiology 07/15/16 Blood Culture - Final, Complete NO GROWTH AFTER 5 DAYS 07/15/16 Blood Culture - Final, Complete NO GROWTH AFTER 5 DAYS 07/15/16 Gram Stain - Final, Complete 07/15/16 Sputum Culture - Final, Complete Staphylococcus Aureus Medications Scheduled Amlodipine Besylate (Amlodipine Besylate) 10 Mg Tab 10 MG PO DAILY Carvedilol (Carvedilol) 6.25 Mg Tab 6.25 MG PO BID Carvedilol (Carvedilol) 12.5 Mg Tab 25 MG PO BID Furosemide (Furosemide) 40 Mg Tab 40 MG PO DAILY Hydralazine HCl (Hydralazine HCl) 50 Mg Tab 100 MG PO TID Insulin Glargine (Lantus) 1 Units/0.01 Ml Susp 20 UNITS SC QHS Insulin Human Lispro (Humalog) 1 Units/0.01 Ml Inj 1 DOSE SC AC Isosorbide Dinitrate (Isosorbide Dinitrate) 20 Mg Tab 20 MG PO TID Pantoprazole Sodium (Pantoprazole Sodium) 40 Mg Tab 40 MG PO DAILY Prednisone (Prednisone) 10 Mg Tab 10 MG PO QHS Spironolactone (Aldactone) 25 Mg Tab 25 MG PO DAILY@12 cloNIDine HCL 0.3 MG/24 HR (Clonidine HCl) 1 Ea Tdsy 1 EA TOP Q7D@20 Scheduled PRN Albuterol Sulfate (Ventolin Hfa) 200 Puff/8 Gm Aers 2 PUFF INH Q6HP PRN PRN WHEEZING Allergies Coded Allergies: No Known Allergies (Unverified , 06/20/16) JANNETTE ANDERSEN MD Jul 24, 2016 17:51
== END 2016-07-24 11:53 | disposition home or self-care (01) | DRG 291 ==
LOC: M ED 22:38 → M ED INP 07-10 00:22 → M ICU 07-10 02:27 → M PCU 07-12 04:44 → M MSPAV 07-16 16:26
PROVIDERS: ADMIT Internal Medicine; ATTEND Internal Medicine
DX: I50.33 Acute on chronic diastolic (congestive) heart failure (principal); J96.02 Acute respiratory failure with hypercapnia; J18.9 Pneumonia, unspecified organism; N17.9 Acute kidney failure, unspecified; K21.9 Gastro-esophageal reflux disease without esophagitis; Z79.899 Other long term (current) drug therapy; Z79.52 Long term (current) use of systemic steroids; Z79.4 Long term (current) use of insulin; I16.0 Hypertensive urgency; Z79.82 Long term (current) use of aspirin; N18.4 Chronic kidney disease, stage 4 (severe); J44.9 Chronic obstructive pulmonary disease, unspecified; E78.5 Hyperlipidemia, unspecified; E66.9 Obesity, unspecified

== ENCOUNTER → 2016-08-08 | Outpatient (REF) | payer MEDICARE ==
[~2016-08-08] MED LIST changes: +ALBU17IN INH; +ALDA25TA2 PO; +AMLO10TA2 PO; +CARV12.5 PO; +CATA0.2D TD; +CLON3PA TOP; +FURO40TA2 PO; +HYDR-4266 PO
[2016-08-08 18:29] LABS: PERCENT SATURATION 22.2 % (19.7-37.4)
== END ==
LOC: M LAB REF 16:58
PROVIDERS: ATTEND Internal Medicine Nephrology
DX: N18.9 Chronic kidney disease, unspecified (principal); D63.1 Anemia in chronic kidney disease

== ENCOUNTER → 2017-08-03 | Outpatient (REF) | payer OTHER ==
[2017-08-08 00:11] LABS: D001-IgE D pteronyssinus 1.11 kU/L (Class II); E005-IgE Dog Dander 0.59 kU/L (Class II); G002-IgE Bermuda Grass 0.28 kU/L (Class 0/I); G008-IgE Kentucky Bluegrass 0.13 kU/L (Class 0/I); M001-IgE Penicillium chrysogen < 0.10 kU/L (Class 0); M002 IgE Cladosporium herbaru 0.11 kU/L (Class 0/I); M003 IgE Aspergillus fumigatu 0.13 kU/L (Class 0/I); M006-IgE Alternaria alternata < 0.10 kU/L (Class 0); T001-IgE Maple/Box Elder 0.13 kU/L (Class 0/I); T003-IgE Common Silver Birch 0.15 kU/L (Class 0/I); T006-IgE Cedar, Mountain < 0.10 kU/L (Class 0); T007-IgE Oak, White 0.13 kU/L (Class 0/I); T008-IgE Elm, American 0.17 kU/L (Class 0/I); T015-IgE Ash, White 0.39 kU/L (Class I); T041-IgE Hickory, White < 0.10 kU/L (Class 0); T070-IgE White Mulberry < 0.10 kU/L (Class 0); W001-IgE Ragweed, Short < 0.10 kU/L (Class 0); W009-IgE Plantain, English 0.15 kU/L (Class 0/I); W014-IgE Pigweed, Rough < 0.10 kU/L (Class 0); W018-IgE Sheep Sorrel < 0.10 kU/L (Class 0)
== END ==
LOC: M LAB REF 09:33
DX: J45.40 Moderate persistent asthma, uncomplicated (principal)
CPT/HCPCS: 82785